=== PATIENT | male | born 1980 | race Caucasian/White ===

== ENCOUNTER 2016-12-05 11:22 | Emergency (ER) | payer SELFPAY ==
--- NOTE | 2016-12-05 12:08 | ER Document Report ---
ED Medical Screen (RME) - General Stated Complaint: TOOTH PAIN Time seen by provider: 12:06 Mode of Arrival: Ambulatory Information source: Patient Notes: 36-year-old male with dental decay and part of the tooth broke off the first molar lower left and the pain radiates up into his temporal area. There is no facial swelling. I have greeted and performed a rapid initial assessment of this patient. A comprehensive ED assessment, evaluation of the patient, analysis of test results , and completion of the medical decision making process will be contacted by additional ED providers. TRAVEL OUTSIDE OF THE U[place] IN LAST 30 DAYS: No - Related Data Allergies/Adverse Reactions: No Known Allergies Allergy (Unverified 03/22/11 16:35) Past Medical History - Immunizations Immunizations up to date: No Hx Diphtheria, Pertussis, Tetanus Vaccination: No Physical Exam - Vital signs Vitals: Temp Pulse Resp BP Pulse Ox 98.5 F 78 16 150/90 H 96 12/05/16 11:31 12/05/16 11:31 12/05/16 11:31 12/05/16 11:31 12/05/16 11:31 Course - Vital Signs Vital signs: Temp Pulse Resp BP Pulse Ox 98.5 F 78 16 150/90 H 96 12/05/16 11:31 12/05/16 11:31 12/05/16 11:31 12/05/16 11:31 12/05/16 11:31
[2016-12-05] MEDS ORDERED: HYDROCODONE/ACETAMINOPHEN 5-325 MG TABLET PO ONE (13:59)
--- NOTE | 2016-12-05 14:04 | ER Document Report ---
HPI - HPI Patient complains to provider of: tooth pain Onset: Last week Onset/Duration: Gradual Quality of pain: Sharp, Throbbing Severity: Moderate Pain Level: 4 Associated Symptoms: Other - Dental pain with decay, part of tooth broken off Exacerbated by: Food Relieved by: Denies Similar symptoms previously: Yes Recently seen / treated by doctor: No - ROS ROS below otherwise negative: Yes - CONSTITUTIONAL Constitutional: DENIES: Fever, Chills - EENT EENT: DENIES: Sore Throat, Ear Pain, Nasal Drainage-Clear, Nasal Drainage- Purulent, Congestion, Eye problems Notes: Dental pain lower left molar decayed area with broken off area to the tooth - NEURO Neurology: DENIES: Headache, Weakness, Vision blurred, Dizzinesss / Vertigo - CARDIOVASCULAR Cardiovascular: DENIES: Chest pain - RESPIRATORY Respiratory: DENIES: Trouble Breathing, Coughing - GASTROINTESTINAL Gastrointestinal: DENIES: Abdominal Pain, Nausea, Patient vomiting, Diarrhea, Constipation, Black / Bloody Stools - URINARY Urinary: DENIES: Dysuria, Urgency, Frequency - REPRODUCTIVE Reproductive: DENIES: :, Postmenopausal, Abnormal bleeding / discharge - MUSCULOSKELETAL Musculoskeletal: DENIES: Extremity pain, Back Pain, Neck Pain, Swelling - DERM Skin Color: Normal Skin Problems: None Past Medical History - General Information source: Patient - Social History Smoking Status: Current Every Day Smoker Cigarette use (# per day): Yes - half pack a day Chew tobacco use (# tins/day): Yes Smoking Education Provided: Yes - less than 2 minutes Frequency of alcohol use: None Drug Abuse: None Lives with: Family Family History: Arthritis, CAD, COPD, CVA, Hyperlipidemia, Malignancy Patient has suicidal ideation: No Patient has homicidal ideation: No - Past Medical History Cardiac Medical History: Reports: None Pulmonary Medical History: Reports: None EENT Medical History: Reports: None Neurological Medical History: Reports: None Endocrine Medical History: Reports: None Renal/ Medical History: Reports: None Malignancy Medical History: Reports Hx Skin Cancer GI Medical History: Reports: None Musculoskeltal Medical History: Reports Hx Musculoskeletal Trauma - AC separation Skin Medical History: Reports None Psychiatric Medical History: Reports: None Traumatic Medical History: Reports: None Infectious Medical History: Reports: None Past Surgical History: Reports: Other - Removal of skin cancer - Immunizations Immunizations up to date: No Hx Diphtheria, Pertussis, Tetanus Vaccination: No Vertical Provider Document - CONSTITUTIONAL Agree With Documented VS: Yes Exam Limitations: No Limitations - INFECTION CONTROL TRAVEL OUTSIDE OF THE [place]S. IN LAST 30 DAYS: No - HEENT HEENT: Atraumatic Mouth Diagram: 1 - Large dental cavity with port of tooth broken off. Pain radiates up to face and ear. Redness around the tooth no abscess noted - NECK Neck: Normal Inspection, Supple, Thyroid Normal - RESPIRATORY Respiratory: Breath Sounds Normal, No Respiratory Distress O2 Sat by Pulse Oximetry: 96 - CARDIOVASCULAR Cardiovascular: Regular Rate, Regular Rhythm, No Murmur - MUSCULOSKELETAL/EXTREMETIES Musculoskeletal/Extremeties: MAEW, FROM, Non-Tender - NEURO Level of Consciousness: Awake, Alert, Appropriate - DERM Integumentary: Warm, Dry, No Rash Course - Vital Signs Vital signs: Temp Pulse Resp BP Pulse Ox 98.5 F 78 16 150/90 H 96 12/05/16 11:31 12/05/16 11:31 12/05/16 11:31 12/05/16 11:31 12/05/16 11:31 Discharge - Discharge Clinical Impression: Pain due to dental caries Condition: Stable Disposition: HOME, SELF-CARE Additional Instructions: TOOTHACHE: Your pain is due to dental decay. The tooth must be repaired in order for you to feel better. You will, therefore, be referred to a dentist. We do not have dentists on the staff at [facility]. Severe swelling or drainage around a tooth usually means a dental abscess. This also requires evaluation and treatment by the dentist, but antibiotics may be prescribed while awaiting dental treatment. You should be rechecked immediately if you develop major swelling of the face, increasing pain, a lump in the jaw or gums, headache, difficulty swallowing, or fever. ORAL NARCOTIC MEDICATION: You have been given a prescription for pain control. This medication is a narcotic. It's best taken with food, as nausea can result if taken on an empty stomach. Don't operate machinery or drive within six hours of taking this medication. Do not combine this medicine with alcohol, or with any medication which can cause sedation (such as cold tablets or sleeping pills) unless you get permission from the physician. Narcotics tend to cause constipation. If possible, drink plenty of fluids and eat a diet high in fiber and fruits. Please be aware that prescription narcotics also have the potential for abuse. People become addicted to these medications because of the general sense of wellbeing that they induce. This feeling along with a significant reduction in tension, anxiety, and aggression provides a stimulating seductive quality to these drugs. Once your pain is under control, we encourage you to discard your unused narcotics. PENICILLIN V K: You have been given a prescription for Penicillin VK. Your physician has determined that this is the best antibiotic for your condition. Pen VK can be taken with meals, however more of the antibiotic gets into the bloodstream if it's taken on an empty stomach. Penicillin usually has no side effects. However, allergy to penicillins is common. If you have had an allergic reaction to any drug of the penicillin family, you should never take any other penicillin. Notify your doctor at once if you develop hives, itching, swelling, faintness, or shortness of breath. FOLLOW-UP CARE: You have been referred for follow-up care to the dentists listed below. Call the dentists office for an appointment as you were instructed or within the next two days. If you experience worsening or a significant change in your symptoms, notify the physician immediately or return to the Emergency Department at any time for re-evaluation. [facility] [address] [place], [place] Monday mornings, by appointment [facility] [address] [place] [address] [facility] [address] [facility] [address] [facility] ([facility]) [facility] [employer] [facility] [address] [facility]. [email or web address] [facility] [address] [place] [address] Monday- 8:00am to 5:00 pm Will see patients from other [facility]. Charges based on income and family size and accepts Medicare, Medicaid, and Insurances Will pull molars [facility] Student Clinics [facility], [facility]. [address] Hours of Operation 8:00 am - 4:30 pm weekdays The following dental offices accept Medicaid: [facility] [address]. Sol Dr. Matt Dr. Rocha Dr. Jain Sky Jin Lutsavage, and Kaitlin oral surgery Dr. Ho ([place]) Dr. Chow ([place]) [facility] Drs. Gonzalez and Srini ([place]) Dr. Lutz ([place]) [facility] Dr. Hancock ([place]) Drs. Manning and ([place]) Medicaid Care Line Prescriptions: Hydrocodone/Acetaminophen [[place] 5-325 mg Tablet] 1 tab PO Q6HP PRN #14 tablet PRN Reason: Penicillin V Potassium [Penicillin Vk 500 mg Tablet] 500 mg PO QID #28 tablet Forms: Elevated Blood Pressure, Smoking Cessation Education
[2016-12-05 14:13] VITALS: BP 140/65
== END 2016-12-05 14:13 | disposition home or self-care (01) ==
LOC: ER 11:22
DX: K02.9 Dental caries, unspecified (principal); K08.89 Other specified disorders of teeth and supporting structures; F17.210 Nicotine dependence, cigarettes, uncomplicated; Z71.6 Tobacco abuse counseling; Z85.828 Personal history of other malignant neoplasm of skin
CPT/HCPCS: 99282

== ENCOUNTER 2016-12-31 07:41 | Emergency (ER) | payer SELFPAY ==
--- NOTE | 2016-12-31 08:58 | ER Document Report ---
ED Oral Problem - General Chief Complaint: Toothache Stated Complaint: TOOTH PAIN Time seen by provider: 08:54 Mode of Arrival: Ambulatory Notes: 36-year-old male was presented to ED for dental pain. He was stating 2 weeks ago for the same dental pain was unable to follow-up with a dentist. He states he has an appointment next Monday for an extraction but states that the pain was too much to wait for that long. States he lost his anabolic prescription that he had written 2 weeks ago. TRAVEL OUTSIDE OF THE [place] IN LAST 30 DAYS: No - HPI Patient complains to provider of: Toothache Onset: Other - Chronic Onset: Gradual Quality of pain: Sharp, Throbbing Severity: Severe Pain Level: 5 Associated symptoms: Toothache Worsened by: Cold Relieved by: Nothing Similar symptoms previously: Yes Recently seen / treated by doctor/dentist: Yes - Related Data Allergies/Adverse Reactions: tramadol Allergy (Verified 12/31/16 07:49) Past Medical History - General Information source: Patient - Social History Smoking Status: Current Every Day Smoker Cigarette use (# per day): Yes Chew tobacco use (# tins/day): No Smoking Education Provided: Yes - less than 2 minutes Frequency of alcohol use: None Drug Abuse: None Family History: Arthritis, CAD, COPD, CVA, Hyperlipidemia, Malignancy Patient has suicidal ideation: No Patient has homicidal ideation: No - Past Medical History Cardiac Medical History: Reports: None Pulmonary Medical History: Reports: None EENT Medical History: Reports: None Neurological Medical History: Reports: None Endocrine Medical History: Reports: None Renal/ Medical History: Reports: None Malignancy Medical History: Reports Hx Skin Cancer GI Medical History: Reports: None Musculoskeltal Medical History: Reports Hx Musculoskeletal Trauma - AC separation Skin Medical History: Reports None Psychiatric Medical History: Reports: None Traumatic Medical History: Reports: None Infectious Medical History: Reports: None Past Surgical History: Reports: Other - Removal of skin cancer - Immunizations Immunizations up to date: No Hx Diphtheria, Pertussis, Tetanus Vaccination: No Review of Systems - Review of Systems Constitutional: No symptoms reported EENT: Dental problem - #20 part of the tooth is missing large cavity present mild swelling around the tooth Cardiovascular: No symptoms reported Respiratory: No symptoms reported Gastrointestinal: No symptoms reported Genitourinary: No symptoms reported Male Genitourinary: No symptoms reported Musculoskeletal: No symptoms reported Skin: No symptoms reported Hematologic/Lymphatic: No symptoms reported Neurological/Psychological: No symptoms reported -: Yes All other systems reviewed and negative Physical Exam - Vital signs Vitals: Temp Pulse Resp BP Pulse Ox 98.0 F 83 16 125/85 97 12/31/16 07:46 12/31/16 07:46 12/31/16 07:46 12/31/16 07:46 12/31/16 07:46 Interpretation: Normal - General General appearance: Appears well, Alert - HEENT Head: Normocephalic, Atraumatic Eyes: Normal Pupils: PERRL Ears: Normal External canal: Normal Tympanic membrane: Normal Sinus: Normal Nasal: Normal Mouth/Lips: Caries Teeth diagram: 1 - Large cavity with part of the tooth broken off. Mild redness around the tooth but no abscess noted. This tooth has been a problem for a long time and patient has not had it fixed yet. Pharynx: Normal Neck: Normal - Respiratory Respiratory status: No respiratory distress Chest status: Nontender Breath sounds: Normal Chest palpation: Normal - Cardiovascular Rhythm: Regular Heart sounds: Normal auscultation Murmur: No - Abdominal Inspection: Normal Distension: No distension Bowel sounds: Normal Tenderness: Nontender Organomegaly: No organomegaly - Back Back: Normal, Nontender - Extremities General upper extremity: Normal inspection, Nontender, Normal color, Normal ROM , Normal temperature General lower extremity: Normal inspection, Nontender, Normal color, Normal ROM , Normal temperature, Normal weight bearing. No: Alina's sign - Neurological Neuro grossly intact: Yes Cognition: Normal Orientation: AAOx4 [place] Coma Scale Eye Opening: Spontaneous [place] Coma Scale Verbal: Oriented [place] Coma Scale Motor: Obeys Commands Betty Coma Scale Total: 15 Speech: Normal Motor strength normal: LUE, RUE, LLE, RLE Sensory: Normal - Psychological Associated symptoms: Normal affect, Normal mood - Skin Skin Temperature: Warm Skin Moisture: Dry Skin Color: Normal Course - Vital Signs Vital signs: Temp Pulse Resp BP Pulse Ox 98.4 F 70 16 124/82 97 12/31/16 09:04 12/31/16 09:04 12/31/16 09:04 12/31/16 09:04 12/31/16 09:04 Discharge - Discharge Clinical Impression: Pain due to dental caries Condition: Stable Disposition: HOME, SELF-CARE Instructions: Dentist Additional Instructions: TOOTHACHE: Your pain is due to dental decay. The tooth must be repaired in order for you to feel better. You will, therefore, be referred to a dentist. We do not have dentists on the staff at [facility]. Severe swelling or drainage around a tooth usually means a dental abscess. This also requires evaluation and treatment by the dentist, but antibiotics may be prescribed while awaiting dental treatment. You should be rechecked immediately if you develop major swelling of the face, increasing pain, a lump in the jaw or gums, headache, difficulty swallowing, or fever. ORAL NARCOTIC MEDICATION: You have been given a prescription for pain control. This medication is a narcotic. It's best taken with food, as nausea can result if taken on an empty stomach. Don't operate machinery or drive within six hours of taking this medication. Do not combine this medicine with alcohol, or with any medication which can cause sedation (such as cold tablets or sleeping pills) unless you get permission from the physician. Narcotics tend to cause constipation. If possible, drink plenty of fluids and eat a diet high in fiber and fruits. Please be aware that prescription narcotics also have the potential for abuse. People become addicted to these medications because of the general sense of wellbeing that they induce. This feeling along with a significant reduction in tension, anxiety, and aggression provides a stimulating seductive quality to these drugs. Once your pain is under control, we encourage you to discard your unused narcotics. PENICILLIN V K: You have been given a prescription for Penicillin VK. Your physician has determined that this is the best antibiotic for your condition. Pen VK can be taken with meals, however more of the antibiotic gets into the bloodstream if it's taken on an empty stomach. Penicillin usually has no side effects. However, allergy to penicillins is common. If you have had an allergic reaction to any drug of the penicillin family, you should never take any other penicillin. Notify your doctor at once if you develop hives, itching, swelling, faintness, or shortness of breath. FOLLOW-UP CARE: You have been referred for follow-up care to the dentists listed below. Call the dentists office for an appointment as you were instructed or within the next two days. If you experience worsening or a significant change in your symptoms, notify the physician immediately or return to the Emergency Department at any time for re-evaluation. [facility] [address] [place] [address] [facility] [address] [facility] [address] [facility] [address] [facility] [email or web address] [address] [place] [address] Monday- 8:00am to 5:00 pm Will see patients from other [facility]. Charges based on income and family size and accepts Medicare, Medicaid, and Insurances Will pull molars [facility] [facility] Student Clinics [facility] [address] Hours of Operation 8:00 am - 4:30 pm weekdays The following dental offices accept Medicaid: [facility] [address] Matt Dr. Rocha Dr. Jain Sky Jin Lutsavage, and Kaitlin oral surgery Dr. Ho ([place]) Dr. Chow ([place]) [facility] Drs. Gonzalez and Srini ([place]) Dr. Lutz ([place]) [facility] Dr. Hancock ([place]) Drs. Manning and ([place]) Medicaid Care Line Prescriptions: Hydrocodone/Acetaminophen [[place] 5-325 mg Tablet] 1 tab PO Q6HP PRN #14 tablet PRN Reason: Penicillin V Potassium [Penicillin Vk 500 mg Tablet] 500 mg PO BID #20 tablet
[2016-12-31 09:10] VITALS: BP 124/82
== END 2016-12-31 09:05 | disposition home or self-care (01) ==
LOC: ER 07:41
DX: K02.9 Dental caries, unspecified (principal); K08.89 Other specified disorders of teeth and supporting structures; F17.210 Nicotine dependence, cigarettes, uncomplicated
CPT/HCPCS: 99282

== ENCOUNTER 2017-04-29 08:26 | Emergency (ER) | payer SELFPAY ==
[2017-04-29] MEDS ORDERED: OXYCODONE-ACETAMINOPHEN 5-325 MG TABLET PO ONE (09:18)
[2017-04-29] MEDS ORDERED: LIDOCAINE 5% (700 MG) TRANSDERMAL ADH..PATCH TP ONE (09:18)
--- NOTE | 2017-04-29 09:23 | ER Document Report ---
HPI - HPI Patient complains to provider of: back pain Onset: Other - 22 years Onset/Duration: Persistent, Worse Quality of pain: Sharp Pain Level: 4 Context: Patient presents complaining of a flareup of his chronic low back pain. Patient states that he had fallen 22 years ago injuring his back and since then he has daily back pain. Patient states that he has had pain that radiates into his right lower extremity. Patient states he has had sciatica in the past and is typical pattern. Patient reports that he has not had a bowel movement today but had a normal bowel movement yesterday. Patient denies any urinary retention or incontinence or fecal incontinence. Patient complains of right knee pain but attributes this to his change in gait due to his back pain. Patient denies any fever or recent illness. Patient denies any IV drug use. Associated Symptoms: Other - low back pain Exacerbated by: Movement, Walking Relieved by: Denies Similar symptoms previously: Yes Recently seen / treated by doctor: No - ROS ROS below otherwise negative: Yes Systems Reviewed and Negative: Yes All other systems reviewed and negative - CONSTITUTIONAL Constitutional: DENIES: Fever, Chills - NEURO Neurology: DENIES: Weakness - REPRODUCTIVE Reproductive: DENIES: : - MUSCULOSKELETAL Musculoskeletal: REPORTS: Extremity pain - back radiates, Back Pain - DERM Skin Color: Normal Skin Problems: None Past Medical History - General Information source: Patient - Social History Smoking Status: Current Every Day Smoker Drug Abuse: None Occupation: none Family History: Arthritis, CAD, COPD, CVA, Hyperlipidemia, Malignancy Patient has suicidal ideation: No Patient has homicidal ideation: No Renal/ Medical History: Denies: Hx Peritoneal Dialysis Malignancy Medical History: Reports Hx Skin Cancer Musculoskeltal Medical History: Reports Hx Musculoskeletal Trauma - AC separation, Reports Other - chronic back pain Past Surgical History: Reports: Other - Removal of skin cancer - Immunizations Immunizations up to date: No Hx Diphtheria, Pertussis, Tetanus Vaccination: No Vertical Provider Document - CONSTITUTIONAL Agree With Documented VS: Yes Exam Limitations: No Limitations General Appearance: WD/WN, No Apparent Distress Notes: PHYSICAL EXAMINATION: GENERAL: Well-appearing, well-nourished and in no acute distress. HEAD: Atraumatic, normocephalic. EYES: sclera clear, anicteric, conjunctiva are normal. ENT: nares patent, Moist mucous membranes. NECK: Normal range of motion, supple no lymphadenopathy LUNGS: respirations unlabored HEART: Regular rate and rhythm without murmurs EXTREMITIES: Normal range of motion, no pitting or edema. No cyanosis. Gait normal, pt ambulates without difficulty BACK: Right lower lumbar paraspinal tenderness, right SI joint tenderness, no midline tenderness, no deformities or step-offs. No CVA tenderness. NEUROLOGICAL: Cranial nerves grossly intact. Normal speech, normal gait. No saddle anesthesia. no foot drop, 2+ Achilles and patellar reflexes bilaterally PSYCH: Normal mood, normal affect. SKIN: Warm, Dry, normal turgor, no rashes or lesions noted. - INFECTION CONTROL TRAVEL OUTSIDE OF THE [place] IN LAST 30 DAYS: No - RESPIRATORY O2 Sat by Pulse Oximetry: 97 Course - Re-evaluation Re-evalutation: 04/29/17 09:19 The patient has been informed that they may have pre-hypertension or hypertension based on a blood pressure reading in the emergency department. I recommend that patient call the primary care provider listed on their discharge instructions or a physician of their choice by this week to arrange follow-up for further evaluation of possible pre-hypertension her hypertension. The patient presents with low back pain without signs of spinal cord compression , cauda equina syndrome, infection, aneurysm, or other serious etiology. The patient is neurologically intact. Given the extremely risk of these diagnoses further testing and evaluation for these possibilities does not appear to be indicated at this time. Patient has been instructed to return if the symptoms worsen or change in any way. - Vital Signs Vital signs: Temp Pulse Resp BP Pulse Ox 98.1 F 85 18 154/91 H 97 04/29/17 08:29 04/29/17 08:29 04/29/17 08:29 04/29/17 08:29 04/29/17 08:29 Discharge - Discharge Clinical Impression: Elevated blood pressure reading Low back pain Qualifiers: Chronicity: chronic Back pain laterality: right Sciatica presence: with sciatica Sciatica laterality: sciatica of right side Qualified Code(s): M54.41 - Lumbago with sciatica, right side Condition: Stable Disposition: HOME, SELF-CARE Additional Instructions: Return immediately for any new or worsening symptoms Followup with your primary care provider, call tomorrow to make a followup appointment LOW BACK PAIN: Three out of every four people will have an episode of disabling back pain during their lifetime. Most commonly the pain is due to straining of the muscles and ligaments in the low back. Usual treatment includes: (1) Rest on a firm surface. Avoid lying on your stomach. (2) Ice pack the painful area. After a few days, gentle heat may be used intermittently to relax the area, or ice packs can be continued. (3) Medication may be needed -- muscle relaxers and antiinflammatory medicines are commonly used. (4) As the back improves, exercises are prescribed to strengthen the back and abdominal muscles. Your doctor will advise you on the proper care for your back at each stage in your recovery. You may be better in a few days -- or healing may take several weeks. If new symptoms of a "herniated disc" (radiation of pain, numbness, or tingling down the back of the leg or weakness in the leg) occur, you should be re-examined. Further testing may be necessary. ORAL NARCOTIC MEDICATION: You have been given a prescription for pain control. This medication is a narcotic. It's best taken with food, as nausea can result if taken on an empty stomach. Don't operate machinery or drive within six hours of taking this medication. Do not combine this medicine with alcohol, or with any medication which can cause sedation (such as cold tablets or sleeping pills) unless you get permission from the physician. Narcotics tend to cause constipation. If possible, drink plenty of fluids and eat a diet high in fiber and fruits. Please be aware that prescription narcotics also have the potential for abuse. People become addicted to these medications because of the general sense of wellbeing that they induce. This feeling along with a significant reduction in tension, anxiety, and aggression provides a stimulating seductive quality to these drugs. Once your pain is under control, we encourage you to discard your unused narcotics. MUSCLE RELAXERS: Muscle relaxing medications are usually prescribed for acute muscle spasm or injury to the neck and back. They are often combined with antiinflammatory pain medication for increased relief. You may stop the muscle relaxer when the pain and stiffness have improved. Start the medication again if spasms recur. Muscle relaxers may cause drowsiness, especially with the first dose. Do not operate machinery or drive while under the effects of the medication. Most muscle relaxers last up to 24 hours. Do not combine the medication with alcohol. ICE PACKS: Apply ice packs frequently against the painful area. Many different schedules are recommended, such as "20 minutes on, 20 minutes off" or "one hour ice, two hours rest." If you need to work, you may need to go longer between ice treatments. You should plan to have the area ice packed AT LEAST one fourth of the time. The ice should be applied over the wrap, tape, or splint, or over a layer of cloth -- not directly against the skin. Some ice bags have a built-in cloth and can be put directly on the skin. WARM PACKS: After approximately two days, apply gentle heat (such as a heating pad or hot water bottle) for about 20 to 30 minutes about every two hours -- at least four times daily. Warmth and elevation will help you make a more rapid recovery , and will ease the pain considerably. Do not use HOT heat, and never apply heat for longer than 30 minutes. The continuous heat can invisibly damage skin and muscles -- even when no burn is seen on the surface. Damaged muscles can make you MORE sore. FOLLOW-UP CARE: If you have been referred to a physician for follow-up care, call the physician s office for an appointment as you were instructed or within the next two days. If you experience worsening or a significant change in your symptoms, notify the physician immediately or return to the Emergency Department at any time for re-evaluation. Prescriptions: Cyclobenzaprine HCl [Flexeril 10 Mg Tablet] 10 mg PO TID #15 tablet Naproxen [Naprosyn 250 Nmg Tablet] 1 tab PO BID #14 tablet Oxycodone HCl/Acetaminophen [Percocet 5-325 mg Tablet] 1 - 2 tab PO ASDIR PRN # 15 tablet PRN Reason: Forms: Elevated Blood Pressure Referrals: [facility] [Provider Group] - Follow up as needed [facility] [Provider Group] - Follow up in 3-5 days
[2017-04-29 09:44] VITALS: BP 131/82
== END 2017-04-29 09:37 | disposition home or self-care (01) ==
LOC: ER 08:26
DX: G89.29 Other chronic pain (principal); M54.41 Lumbago with sciatica, right side; W19.XXXS Unspecified fall, sequela; M25.561 Pain in right knee; R03.0 Elevated blood-pressure reading, without diagnosis of hypertension; F17.200 Nicotine dependence, unspecified, uncomplicated; Z85.828 Personal history of other malignant neoplasm of skin
CPT/HCPCS: 99283

== ENCOUNTER 2017-05-01 10:08 | Emergency (ER) | payer SELFPAY ==
--- NOTE | 2017-05-01 11:21 | ER Document Report ---
HPI - HPI Pain Level: 4 Notes: Patient is a 36-year-old male presents to the ED complaining of continued low back pain without any acute changes since his visit 2 days ago. Patient has reported chronic low back pain without known injury. States that he did fill his Percocet but did not fill the muscle relaxer. Patient states he did get methocarbamol from his neighbor said that would help when he takes it with his Percocet. Patient states that he has continued low back pain with radicular symptoms into his right lower extremity. Patient states that sometimes he feels like his leg is vibrating. Pt states that the pain worsens when he moves it rather than pushing on his back. He denies any muscle weakness or paralysis. Denies any loss of control of bowel or bladder patient still does not have a PCM. On occasion he will feel some tingling in his foot. Otherwise he still eating and drinking without any problems. He has been having normal urinary habits and bowel movements. Denies any headache, fever, URI, sore throat, chest pain, palpitations, syncope, cough, wheeze, shortness of breath, abdominal pain, nausea/vomiting/diarrhea, urinary retention, dysuria, hematuria , or rash. Patient states that he does smoke but he does not do any other illicit drugs or alcohol. - ROS Notes: REVIEW OF SYSTEMS: CONSTITUTIONAL : Denies fever, chills, or sweats. Denies recent illness. EENT: Denies eye, ear, throat, or mouth pain or symptoms. Denies nasal or sinus congestion or discharge. Denies throat, tongue, or mouth swelling or difficulty swallowing. CARDIOVASCULAR: Denies chest pain. Denies palpitations or racing or irregular heart beat. Denies ankle edema. RESPIRATORY: Denies cough, cold, or chest congestion. Denies shortness of breath, difficulty breathing, or wheezing. GASTROINTESTINAL: Denies abdominal pain or distention. Denies nausea, vomiting , or diarrhea. Denies blood in vomitus, stools, or per rectum. Denies black, tarry stools. Denies constipation. GENITOURINARY: Denies difficulty urinating, painful urination, burning, frequency, blood in urine, or discharge. MUSCULOSKELETAL: see hpi SKIN: Denies rash, lesions or sores. HEMATOLOGIC : Denies easy bruising or bleeding. LYMPHATIC: Denies swollen, enlarged glands. NEUROLOGICAL: see hpi ALL OTHER SYSTEMS REVIEWED AND NEGATIVE. Dictation was performed using [employer] voice recognition software - CARDIOVASCULAR Cardiovascular: DENIES: Chest pain - REPRODUCTIVE Reproductive: DENIES: : Past Medical History - Social History Smoking Status: Current Every Day Smoker Chew tobacco use (# tins/day): No Smoking Education Provided: Yes - <2mins Frequency of alcohol use: None Drug Abuse: None Family History: Arthritis, CAD, COPD, CVA, Hyperlipidemia, Malignancy Patient has suicidal ideation: No Patient has homicidal ideation: No Renal/ Medical History: Denies: Hx Peritoneal Dialysis Malignancy Medical History: Reports Hx Skin Cancer Musculoskeltal Medical History: Reports Hx Musculoskeletal Trauma - AC separation Past Surgical History: Reports: Other - Removal of skin cancer - Immunizations Immunizations up to date: No Hx Diphtheria, Pertussis, Tetanus Vaccination: No Vertical Provider Document - CONSTITUTIONAL Agree With Documented VS: Yes Notes: PHYSICAL EXAMINATION: GENERAL: Well-appearing, well-nourished and in no acute distress. NECK: Normal range of motion, supple without lymphadenopathy. No rigidity. LUNGS: Breath sounds clear to auscultation bilaterally and equal. No wheezes rales or rhonchi. HEART: Regular rate and rhythm without murmurs, rubs, gallops. ABDOMEN: Soft, nontender, nondistended abdomen. No guarding, no rebound. No masses appreciated. Normal bowel sounds present. No CVA tenderness bilaterally. No pulsatile mass. Musculoskeletal: LE's b/l: FROM to passive/active. Strength 5+/5. Back: FROM to passive/active. Strength 5+/5. No deformity, abrasion, laceration, or ecchymosis noted. + mild muscle tightness L-paraspinal. SLR negative b/l. No SI jt tenderness b/l. No vertebral point tenderness. Extremities: No cyanosis, clubbing, or edema b/l. Peripheral pulses 2+. Capillary refill less than 3 seconds. NEUROLOGICAL: Normal sensory, motor exams. reflexes 2+. PSYCH: Normal mood, normal affect. SKIN: Warm, Dry, normal turgor, no rashes or lesions noted. - INFECTION CONTROL TRAVEL OUTSIDE OF THE [place] IN LAST 30 DAYS: No - RESPIRATORY O2 Sat by Pulse Oximetry: 97 Course - Re-evaluation Re-evalutation: 05/01/17 12:41 Patient is an afebrile, well-hydrated, 36-year-old male presents the ED with chronic low back pain. Vitals are stable. PE is otherwise unremarkable. Patient was seen 2 days ago for the same symptoms. Patient states that he filled the Percocet did not did not fill the other medications. Patient also states that he borrowed medication from a neighbor, methocarbamol and has been taking double the recommended dose of that along with his Percocet. Patient requested the pain injection today, but not Toradol as I did not work for him last summer. I did call the pharmacy and and patient did fill only the Percocet. Low suspicion for any expanding or ruptured AAA, cauda equina syndrome, epidural mass lesion, sepsis, herniated disc causing severe spinal stenosis, or other systemic illness at this time. Lumbar spine x-ray with flexion-extension views obtained to assess for instability in the low spine. L5 -S1 disc degeneration noted. No instability. 10 mg Decadron injection given IM today. I will send him home with voltaren gel. Conservative measures for symptoms. Recheck with your PCM in 2-3 days. Call orthopedics for an appointment. Return to ED with any worsening/ concerning symptoms as reviewed in discharge. Patient is in agreement. - Vital Signs Vital signs: Temp Pulse Resp BP Pulse Ox 97.3 F 89 18 132/87 H 97 05/01/17 10:14 05/01/17 10:14 05/01/17 10:14 05/01/17 10:14 05/01/17 10:14 Discharge - Discharge Clinical Impression: Low back pain Qualifiers: Chronicity: chronic Back pain laterality: right Sciatica presence: unspecified whether sciatica present Qualified Code(s): M54.5 - Low back pain Condition: Stable Disposition: HOME, SELF-CARE Instructions: Ice Packs ([facility]), Low Back Pain ([facility]), Muscle Strain ([facility]), Warm Packs ([facility]) Additional Instructions: Rest, Ice, Compression, Elevation Take meds as directed Tylenol/ibuprofen as needed Light stretches daily Strength exercises as able Moist heat and massage may help F/u with your PCP in 2-3 days for a recheck call for consult(s) with Orthopedics Consider physical therapy, chiropractics as well Return to the ED with any worsening symptoms and/or development of fever, headache, chest pain, palpitations, syncope, shortness of breath, trouble breathing, abdominal pain, n/v/d, blood in stool/urine, loss of control of bowel /bladder, urinary retention, muscle weakness/paralysis, numbness/tingling, or other worsening symptoms that are concerning to you. Prescriptions: Diclofenac Sodium [Voltaren] 4 gm TP QID PRN #100 gel..gm. PRN Reason: Forms: Elevated Blood Pressure, Smoking Cessation Education Referrals: [facility] [Provider Group] - Follow up as needed [facility] [place] [Provider Group] - Follow up as needed [facility] [Provider Group] - Follow up in 3-5 days
[2017-05-01] MEDS ORDERED: DEXAMETHASONE SOD PHOS INJ 10 MG/1 ML VIAL IM ONE (11:23)
--- NOTE | 2017-05-01 11:54 | RADIOLOGY REPORT (SQ) ---
EXAM DESCRIPTION: L SPINE W/FLEX/EXT COMPLETED DATE/TIME: 05/01/2017 11:42 am REASON FOR STUDY: low back pain, ?instability COMPARISON: None. NUMBER OF VIEWS: Seven views. TECHNIQUE: AP, lateral, obliques, flexion, extension, and sacral radiographic images acquired. LIMITATIONS: None. FINDINGS: MINERALIZATION: Normal. SEGMENTATION: Normal. No transitional anatomy. ALIGNMENT: Normal. FLEXION/EXTENSION: No instability. VERTEBRAE: Maintained height. No fracture or worrisome bone lesion. DISCS: Disc space narrowing with reactive changes at the L5-S1 disc. POSTERIOR ELEMENTS: Pedicles and facets are intact. No pars defect or posterior arch defects. HARDWARE: None in the spine. PARASPINAL SOFT TISSUES: Normal. PELVIS: Intact as visualized. No fractures or worrisome bone lesions. SI joints intact. OTHER: No other significant finding. IMPRESSION: Degenerative disc disease L5-S1. NO INSTABILITY ON FLEXION/EXTENSION. TECHNICAL DOCUMENTATION: JOB ID: [id number] [employer]- All Rights Reserved
[2017-05-01 12:52] VITALS: BP 164/74
== END 2017-05-01 12:52 | disposition home or self-care (01) ==
LOC: ER 10:08
DX: M54.5 Low back pain (principal); G89.29 Other chronic pain; F17.200 Nicotine dependence, unspecified, uncomplicated
CPT/HCPCS: 99283; 96372; 72114; J1100

== ENCOUNTER 2017-05-29 05:09 | Emergency (ER) | payer SELFPAY ==
[2017-05-29 05:16] VITALS: BP 140/93
[2017-05-29] MEDS ORDERED: DEXAMETHASONE SOD PHOS INJ 10 MG/1 ML VIAL IM ONE (06:54)
[2017-05-29] MEDS ORDERED: OXYCODONE-ACETAMINOPHEN 5-325 MG TABLET PO ONE (06:55)
--- NOTE | 2017-05-29 07:00 | ER Document Report ---
ED General - General Chief Complaint: Low Back Pain Stated Complaint: LOWER BACK PAIN Time Seen by Provider: 05/29/17 06:54 TRAVEL OUTSIDE OF THE [place] IN LAST 30 DAYS: No - HPI Patient complains to provider of: Acute exacerbation of chronic low back pain Notes: Patient coming in complaining of acute exacerbation of lower back pain no history of any new trauma. Patient denies any numbness or tingling denies any bowel bladder incontinence. Denies any saddle anesthesias. Patient states now is having sciatica bilaterally most time he has sciatica on the on the right side. Patient does have an appointment to have an MRI performed by a legal service specialist that he is seen in [place]. Patient states tried multiple over- the-counter modalities along with muscle relaxer that he has been prescribed with no relief. Upon my evaluation patient is resting comfortably no signs of any obvious distress. No fevers or chills no nausea no vomiting denies smoking denies IV drug use. - Related Data Allergies/Adverse Reactions: tramadol Allergy (Verified 05/29/17 05:16) Past Medical History - Social History Smoking Status: Unknown if Ever Smoked Family History: Arthritis, CAD, COPD, CVA, Hyperlipidemia, Malignancy Patient has suicidal ideation: No Patient has homicidal ideation: No Renal/ Medical History: Denies: Hx Peritoneal Dialysis Malignancy Medical History: Reports Hx Skin Cancer Musculoskeltal Medical History: Reports Hx Musculoskeletal Trauma - AC separation Past Surgical History: Reports: Other - Removal of skin cancer - Immunizations Immunizations up to date: No Hx Diphtheria, Pertussis, Tetanus Vaccination: No Review of Systems - Review of Systems Constitutional: No symptoms reported EENT: No symptoms reported Cardiovascular: No symptoms reported Respiratory: No symptoms reported Gastrointestinal: No symptoms reported Genitourinary: No symptoms reported Male Genitourinary: No symptoms reported Musculoskeletal: Back pain Skin: No symptoms reported Hematologic/Lymphatic: No symptoms reported Neurological/Psychological: No symptoms reported -: Yes All other systems reviewed and negative Physical Exam - Vital signs Vitals: Temp Pulse Resp BP Pulse Ox 97.8 F 98 26 H 140/93 H 98 05/29/17 05:10 05/29/17 05:10 05/29/17 05:10 05/29/17 05:10 05/29/17 05:10 Interpretation: Normal - General General appearance: Appears well, Alert - HEENT Head: Normocephalic, Atraumatic Eyes: Normal Pupils: PERRL - Respiratory Respiratory status: No respiratory distress Chest status: Nontender Breath sounds: Normal Chest palpation: Normal - Cardiovascular Rhythm: Regular Heart sounds: Normal auscultation Murmur: No - Abdominal Inspection: Normal Distension: No distension Bowel sounds: Normal Tenderness: Nontender Organomegaly: No organomegaly - Back Back: Normal, Nontender - Extremities General upper extremity: Normal inspection, Nontender, Normal color, Normal ROM , Normal temperature General lower extremity: Normal inspection, Nontender, Normal color, Normal ROM , Normal temperature, Normal weight bearing. No: Alina's sign - Neurological Neuro grossly intact: Yes Cognition: Normal Orientation: AAOx4 Betty Coma Scale Eye Opening: Spontaneous Betty Coma Scale Verbal: Oriented Betty Coma Scale Motor: Obeys Commands [place] Coma Scale Total: 15 Speech: Normal Motor strength normal: LUE, RUE, LLE, RLE Sensory: Normal - Psychological Associated symptoms: Normal affect, Normal mood - Skin Skin Temperature: Warm Skin Moisture: Dry Skin Color: Normal Course - Re-evaluation Re-evalutation: 05/29/17 11:01 The patient presents with low back pain without signs of spinal cord compression , cauda equina syndrome, infection, aneurysm, or other serious etiology. The patient is neurologically intact. Given the extremely low risk of these diagnoses further testing and evaluation for these possibilities does not appear to be indicated at this time. The patient has been instructed to return if the symptoms worsen or change in any way. Patient was looked up on [place] narcotic database not receiving any recent narcotics - Vital Signs Vital signs: Temp Pulse Resp BP Pulse Ox 97.8 F 98 26 H 140/93 H 98 05/29/17 05:10 05/29/17 05:10 05/29/17 05:10 05/29/17 05:10 05/29/17 05:10 Discharge - Discharge Clinical Impression: Chronic low back pain with bilateral sciatica Qualifiers: Back pain laterality: unspecified Qualified Code(s): M54.41 - Lumbago with sciatica, right side Condition: Good Disposition: HOME, SELF-CARE Instructions: Ice Packs ([facility]), Low Back Pain ([facility]), Oral Narcotic Medication ( [facility]) Additional Instructions: Follow-up with your primary care physician. Continue to take anti-inflammatory medication. Take prescribed pain medication for severe pain. Prescriptions: Oxycodone HCl/Acetaminophen [Percocet 5-325 mg Tablet] 1 - 2 tab PO Q4H PRN #15 tablet PRN Reason: Prednisone [Deltasone 20 mg Tablet] 3 tab PO DAILY 5 Days Referrals: GLADIS ZENG MD [Primary Care Provider] - Follow up as needed
== END 2017-05-29 07:15 | disposition home or self-care (01) ==
LOC: ER 05:09
DX: M54.41 Lumbago with sciatica, right side (principal); M54.5 Low back pain; G89.29 Other chronic pain
CPT/HCPCS: 99283; 96372; J1100

== ENCOUNTER 2017-07-10 13:38 | Emergency (ER) | payer SELFPAY ==
[2017-07-10 14:06] VITALS: BP 142/93
[2017-07-10] MEDS ORDERED: DEXAMETHASONE SOD PHOS INJ 10 MG/1 ML VIAL IM ONE (14:43)
[2017-07-10] MEDS ORDERED: LIDOCAINE 5% (700 MG) TRANSDERMAL ADH..PATCH TP ONE (14:43)
--- NOTE | 2017-07-10 14:49 | ER Document Report ---
ED Neck/Back Problem - General Chief Complaint: Back Pain Stated Complaint: BACK PAIN Time Seen by Provider: 07/10/17 14:36 Mode of Arrival: Ambulatory Information source: Patient Notes: 37-year-old male presents to ED for complaint of back pain for 4 years patent. He states it got worse while he was in [facility] and on the medical bed. He denies any injuries. He denies any loss of motor control, loss of sensation, loss of control of bowel or bladder, or any saddle anesthesia. Patient states he goes getting [facility] and they are trying to get him scheduled for an MRI. He has no signs and symptoms of cauda equina at this time. He has no pulsatile mass in his abdomen. He has full range of motion to both legs. TRAVEL OUTSIDE OF THE [place] IN LAST 30 DAYS: No - HPI Patient complains to provider of: Pain, Upper back Onset: Other - 4 years Onset: Chronic Timing: Waxing and waning Quality of pain: Sharp, Throbbing Severity: Moderate Pain Level: 4 Recent injury: No Associated symptoms: Like prior neck/back pain, Radiation to leg, Lower back pain. denies: Constipation, Incontinence, Motor loss, Numbness/tingling, Sensory loss, Sweaty, Unable to urinate Exacerbated by: Movement of trunk Relieved by: Nothing Similar symptoms previously: Yes Recently seen / treated by doctor: No - Related Data Allergies/Adverse Reactions: tramadol Allergy (Verified 07/10/17 14:03) Past Medical History - General Information source: Patient - Social History Smoking Status: Current Every Day Smoker Cigarette use (# per day): Yes - Half a pack a day Chew tobacco use (# tins/day): No Smoking Education Provided: Yes - Less than 1 minute Frequency of alcohol use: None Drug Abuse: None Family History: Arthritis, CAD, COPD, CVA, Hyperlipidemia, Malignancy. denies: Hypertension, Thyroid Disfunction Patient has suicidal ideation: No - Past Medical History Cardiac Medical History: Reports: Hx Hypertension Pulmonary Medical History: Reports: None EENT Medical History: Reports: None Neurological Medical History: Reports: None Endocrine Medical History: Reports: None Renal/ Medical History: Reports: None Malignancy Medical History: Reports Hx Skin Cancer GI Medical History: Reports: None Musculoskeltal Medical History: Reports Hx Arthritis, Reports Hx Musculoskeletal Deformity, Reports Hx Musculoskeletal Trauma - AC separation Skin Medical History: Reports None Psychiatric Medical History: Reports: None Traumatic Medical History: Reports: None Infectious Medical History: Reports: None Past Surgical History: Reports: Other - Removal of skin cancer - Immunizations Immunizations up to date: No Hx Diphtheria, Pertussis, Tetanus Vaccination: No Review of Systems - Review of Systems Constitutional: No symptoms reported EENT: No symptoms reported Cardiovascular: No symptoms reported Respiratory: No symptoms reported Gastrointestinal: No symptoms reported. denies: Constipation, Fecal incontinence Genitourinary: No symptoms reported. denies: Incontinence, Retention Male Genitourinary: No symptoms reported Musculoskeletal: Back pain, Muscle pain, Muscle stiffness Skin: No symptoms reported Hematologic/Lymphatic: No symptoms reported Neurological/Psychological: No symptoms reported -: Yes All other systems reviewed and negative Physical Exam - Vital signs Vitals: Temp Pulse Resp BP Pulse Ox 97.9 F 93 18 142/93 H 97 07/10/17 14:06 07/10/17 14:06 07/10/17 14:06 07/10/17 14:06 07/10/17 14:06 Interpretation: Normal - General General appearance: Appears well, Alert - HEENT Head: Normocephalic, Atraumatic Eyes: Normal Pupils: PERRL - Respiratory Respiratory status: No respiratory distress Chest status: Nontender Breath sounds: Normal Chest palpation: Normal - Cardiovascular Rhythm: Regular Heart sounds: Normal auscultation Murmur: No - Abdominal Inspection: Normal Distension: No distension Bowel sounds: Normal Tenderness: Nontender Organomegaly: No organomegaly - Back Back: Normal, Tender, Vertebra tenderness. No: Deformity/step-off, CVA tenderness, Scars, Scoliosis, Wounds - Extremities General upper extremity: Normal inspection, Nontender, Normal color, Normal ROM , Normal temperature General lower extremity: Normal inspection, Nontender, Normal color, Normal ROM , Normal temperature, Normal weight bearing. No: Alina's sign - Neurological Neuro grossly intact: Yes Cognition: Normal Orientation: AAOx4 [place] Coma Scale Eye Opening: Spontaneous [place] Coma Scale Verbal: Oriented [place] Coma Scale Motor: Obeys Commands Betty Coma Scale Total: 15 Speech: Normal Cranial nerves: Normal Cerebellar coordination: Normal Motor strength normal: LUE, RUE, LLE, RLE Additional motor exam normals: Equal mold chipper Babinski reflex: Normal (flexor plantar) Sensory: Normal Knee - Reflex grade: 2 = Normal Ankle - Reflex grade: 2 = Normal - Psychological Associated symptoms: Normal affect, Normal mood - Skin Skin Temperature: Warm Skin Moisture: Dry Skin Color: Normal Course - Re-evaluation Re-evalutation: 07/10/17 14:56 Patient was treated with Decadron and Lidoderm patch. He states he has naproxen at home and does not need a prescription for that. He [facility] and is trying to arrange an MRI through them. He has no signs of cauda equina, no loss of bowel or bladder control, no loss of muscle control , no loss of sensation. - Vital Signs Vital signs: Temp Pulse Resp BP Pulse Ox 97.9 F 93 18 142/93 H 97 07/10/17 14:06 07/10/17 14:06 07/10/17 14:06 07/10/17 14:06 07/10/17 14:06 Discharge - Discharge Clinical Impression: Low back pain Qualifiers: Chronicity: chronic Back pain laterality: bilateral Sciatica presence: with sciatica Sciatica laterality: sciatica of right side Qualified Code(s): M54.41 - Lumbago with sciatica, right side Condition: Stable Disposition: HOME, SELF-CARE Additional Instructions: LOW BACK PAIN: Three out of every four people will have an episode of disabling back pain during their lifetime. Most commonly the pain is due to straining of the muscles and ligaments in the low back. Usual treatment includes: (1) Rest on a firm surface. Avoid lying on your stomach. (2) Ice pack the painful area. After a few days, gentle heat may be used intermittently to relax the area, or ice packs can be continued. (3) Medication may be needed -- muscle relaxers and antiinflammatory medicines are commonly used. (4) As the back improves, exercises are prescribed to strengthen the back and abdominal muscles. Your doctor will advise you on the proper care for your back at each stage in your recovery. You may be better in a few days -- or healing may take several weeks. If new symptoms of a "herniated disc" (radiation of pain, numbness, or tingling down the back of the leg or weakness in the leg) occur, you should be re-examined. Further testing may be necessary. Chronic Back Pain Chronic back pain (pain persisting longer than three months) is a common problem. A medical evaluation can look for herniated disc, arthritis, osteoporosis, tumors, and infections. But at least half the time, there's no obvious treatable cause. Anxiety and depression tend to worsen back pain. Ibuprofen or other anti-inflammatory medicine can help. A heating pad, used for 15-20 minutes at a time, can ease pain. For this type of back pain, narcotic medicines should be avoided. Muscle relaxers are rarely helpful unless you're having spasms. Activity is important. Find an aerobic exercise program that your back can tolerate. Too much rest makes back pain worse. Specific back exercises are usually prescribed to strengthen the back and abdominal muscles. Often, a physical therapist can help. Avoid heavy lifting, working while bent over, or standing with both knees straight. Most back pain patients do better with a firm mattress. If new symptoms of a "herniated disc" (radiation of pain, numbness, or tingling down the back of the leg or weakness in the leg) occur, you should be re-examined. Chronic Pain Control Stress, inactivity, and depression make pain more severe regardless of the cause of the pain. Stress and poor physical condition can cause pain such as headaches and backache. Relaxation: Rest in a quiet place with your eyes closed for 20 minutes twice daily. Concentrate on a pleasant image, or simply "feel" your breathing. Clear your mind. Stress management: Deal with your "stressors." Either take action, or eliminate the stressor from your life. Don't let things hang over you. Accept those things you can't change. Nutrition: Eat small, balanced meals -- don't skip, don't overeat. Meals should be high-carbohydrate, low-sugar, low-fat. Exercise: Exercise helps painful conditions and eases stress. Get 30 minutes of moderate exercise, five days a week. Do an activity that does not flare your pain. Precautions: Pain which continues to disrupt daily activities, or which changes in nature, requires a medical evaluation. Pain Clinic referral is available. We do not manage chronic pain in the Emergency Department. We will try to appropriately help you through an acute flare of your chronic painful condition , but for on-going chronic pain that does not improve, you will need to see your private doctor or painter mirror. We do not provide repeated medication management of chronic painful conditions. If you wish, we can provide the name of local pain management physicians. Anti-Inflammatory Medication You have received a prescription for an antiinflammatory agent. This is an excellent, safe drug for pain control. In addition, it has potent antiinflammatory effects which are beneficial, especially in the treatment of injuries, arthritis, or tendonitis. It's best to take this medicine with food. Persons with ulcer disease or allergy to aspirin should notify their physician of this before taking this drug. Take the medication exactly as prescribed. Don't take additional doses unless instructed to do so by your doctor. If you develop wheezing, shortness of breath, hives, faintness, stomach pain, vomiting, or dark black stools, return for re-evaluation at once. Stretching Exercises for the Back The physician has recommended that you begin stretching exercises for your back. These are often used even while the back is painful. However, you should notify the physician if the activities seem to increase your pain. PELVIC TILT: Lie flat on your back with knees bent. Tighten your stomach and buttock muscles so it flattens your lower back against the floor. Hold 10 seconds. Repeat 10 times, twice daily. KNEE RAISE: Lying on the back with knees bent, raise one knee to your chest, then the other. Hold both knees against the chest 10 seconds, then lower one knee at a time. Repeat 10 times, twice daily. PARTIAL TRUNK RAISE: Lie face down, arms at your sides. Keeping your waist on the floor, use your arms raise your chest up. Support yourself on your elbows for 30 seconds. Repeat twice daily, increasing the time to two minutes as you recover. ICE PACKS: Apply ice packs frequently against the painful area. Many different schedules are recommended, such as "20 minutes on, 20 minutes off" or "one hour ice, two hours rest." If you need to work, you may need to go longer between ice treatments. You should plan to have the area ice packed AT LEAST one fourth of the time. The ice should be applied over the wrap, tape, or splint, or over a layer of cloth -- not directly against the skin. Some ice bags have a built-in cloth and can be put directly on the skin. WARM PACKS: After approximately two days, apply gentle heat (such as a heating pad or hot water bottle) for about 20 to 30 minutes about every two hours -- at least four times daily. Warmth and elevation will help you make a more rapid recovery , and will ease the pain considerably. Do not use HOT heat, and never apply heat for longer than 30 minutes. The continuous heat can invisibly damage skin and muscles -- even when no burn is seen on the surface. Damaged muscles can make you MORE sore. I have given you a Lidoderm patch in the emergency room that she need to remove [address] when you you will need to look for Aspercreme at the [employer] or drugstore and place this on your back as per instructions on the package it is similar to what the patch does. Please follow-up with your care in community clinic for further treatment for your back. FOLLOW-UP CARE: If you have been referred to a physician for follow-up care, call the physician s office for an appointment as you were instructed or within the next two days. If you experience worsening or a significant change in your symptoms, notify the physician immediately or return to the Emergency Department at any time for re-evaluation. Forms: Elevated Blood Pressure, Smoking Cessation Education Referrals: [facility] [Provider Group] - Follow up as needed
== END 2017-07-10 15:15 | disposition home or self-care (01) ==
LOC: ER 13:38
DX: G89.29 Other chronic pain (principal); M54.41 Lumbago with sciatica, right side; I10 Essential (primary) hypertension; F17.210 Nicotine dependence, cigarettes, uncomplicated; Z71.6 Tobacco abuse counseling; Z88.5 Allergy status to narcotic agent; Z85.828 Personal history of other malignant neoplasm of skin
CPT/HCPCS: 99283; 96372; J1100

== ENCOUNTER 2017-09-07 09:48 | Emergency (ER) | payer SELFPAY ==
[2017-09-07] MEDS ORDERED: NAPROXEN 250 MG TABLET PO ONE (10:16)
[2017-09-07] MEDS ORDERED: HYDROCODONE/ACETAMINOPHEN 5-325 MG TABLET PO ONE (10:16)
--- NOTE | 2017-09-07 10:16 | ER Document Report ---
ED Fall - General Chief Complaint: Fall Injury Stated Complaint: BACK PAIN Time Seen by Provider: 09/07/17 10:13 Notes: The patient is a 37-year-old male, past medical history chronic low back pain with sciatica, presents after he was stepping down a ladder and missed a step. He landed on the ball of his right foot and right hip. He is complaining of worsening low back pain and worsening sciatica. Pain is worse with movement. He denies saddle anesthesia, change in bowel or bladder, increased numbness or tingling, rash or fevers. TRAVEL OUTSIDE OF THE [place] IN LAST 30 DAYS: No - Related data Allergies/Adverse Reactions: tramadol Allergy (Verified 09/07/17 09:52) Past Medical History - General Information source: Patient - Social History Smoking Status: Current Every Day Smoker Chew tobacco use (# tins/day): No Frequency of alcohol use: None Drug Abuse: None Family History: Arthritis, CAD, COPD, CVA, Hyperlipidemia, Malignancy. denies: Hypertension, Thyroid Disfunction Patient has suicidal ideation: No Patient has homicidal ideation: No - Past Medical History Cardiac Medical History: Reports: Hx Hypertension Renal/ Medical History: Denies: Hx Peritoneal Dialysis Malignancy Medical History: Reports Hx Skin Cancer Musculoskeltal Medical History: Reports Hx Arthritis, Reports Hx Musculoskeletal Deformity, Reports Hx Musculoskeletal Trauma - AC separation Past Surgical History: Reports: Other - Removal of skin cancer - Immunizations Immunizations up to date: No Hx Diphtheria, Pertussis, Tetanus Vaccination: No Review of Systems - Review of Systems Notes: REVIEW OF SYSTEMS: CONSTITUTIONAL: -fevers, -chills EENT: -eye pain, -difficulty swallowing, -nasal congestion CARDIOVASCULAR:-chest pain, -syncope. RESPIRATORY: -cough, -SOB GASTROINTESTINAL: -abdominal pain, -nausea, -vomiting, -diarrhea GENITOURINARY: -dysuria, -hematuria MUSCULOSKELETAL: +back pain, -neck pain SKIN: -rash or skin lesions. HEMATOLOGIC: -easy bruising or bleeding. LYMPHATIC: -swollen, enlarged glands. NEUROLOGICAL: -altered mental status or loss of consciousness, -headache, - neurologic symptoms PSYCHIATRIC: -anxiety, -depression. ALL OTHER SYSTEMS REVIEWED AND NEGATIVE. Physical Exam - Vital signs Vitals: Temp Pulse Resp BP Pulse Ox 98.4 F 94 16 149/96 H 99 09/07/17 09:50 09/07/17 09:50 09/07/17 09:50 09/07/17 09:50 09/07/17 09:50 - Notes Notes: PHYSICAL EXAMINATION: GENERAL: Well-appearing. Uncomfortable. HEAD: Atraumatic, normocephalic. EYES: Pupils equal round and reactive to light, extraocular movements intact, sclera anicteric, conjunctiva are normal. ENT: nares patent, oropharynx clear without exudates. Moist mucous membranes. NECK: Normal range of motion, supple without lymphadenopathy LUNGS: Breath sounds clear to auscultation bilaterally and equal. No wheezes rales or rhonchi. HEART: Regular rate and rhythm without murmurs ABDOMEN: Soft, nontender, normoactive bowel sounds. No guarding, no rebound. No masses appreciated. EXTREMITIES: Normal range of motion, no pitting or edema. No cyanosis. Tenderness over right lateral hip. Full range of motion of hip. Strong distal pulses. BACK: Non-tender spine. Mild tenderness over right lateral lower back. NEUROLOGICAL: Cranial nerves grossly intact. Normal speech, normal gait. Normal motor exams. PSYCH: Normal mood, normal affect. SKIN: Warm, Dry, normal turgor, no rashes or lesions noted. Course - Re-evaluation Re-evalutation: Patient has no red flag signs for low back pain at this time. He is trying to schedule an MRI as an outpatient at the [facility] for his chronic low back pain. There is no emergent need for an MRI at this time without red flag signs. X-ray does not show any acute fractures. After the fall off one rung of a ladder, instructed him about continuing anti-inflammatories, Robaxin for any spasming, Lidoderm patches for pain control and referral to physical therapy to strengthen his back. Will hold off on any narcotics due to the dangers of narcotics and multiple studies showing no improvement in outcomes with chronic low back pain. - Vital Signs Vital signs: Temp Pulse Resp BP Pulse Ox 98.4 F 94 16 149/96 H 99 09/07/17 09:50 09/07/17 09:50 09/07/17 09:50 09/07/17 09:50 09/07/17 09:50 - Diagnostic Test Radiology reviewed: Image reviewed, Reports reviewed Radiology results interpreted by me: Right hip/pelvis x-ray: NAD Discharge - Discharge Clinical Impression: Acute exacerbation of chronic low back pain Condition: Stable Disposition: HOME, SELF-CARE Additional Instructions: LOW BACK PAIN: Three out of every four people will have an episode of disabling back pain during their lifetime. Most commonly the pain is due to straining of the muscles and ligaments in the low back. Usual treatment includes: (1) Rest on a firm surface. Avoid lying on your stomach. (2) Ice pack the painful area. After a few days, gentle heat may be used intermittently to relax the area, or ice packs can be continued. (3) Medication may be needed -- muscle relaxers and antiinflammatory medicines are commonly used. (4) As the back improves, exercises are prescribed to strengthen the back and abdominal muscles. Your doctor will advise you on the proper care for your back at each stage in your recovery. You may be better in a few days -- or healing may take several weeks. If new symptoms of a "herniated disc" (radiation of pain, numbness, or tingling down the back of the leg or weakness in the leg) occur, you should be re-examined. Further testing may be necessary. MUSCLE RELAXERS: Muscle relaxing medications are usually prescribed for acute muscle spasm or injury to the neck and back. They are often combined with antiinflammatory pain medication for increased relief. You may stop the muscle relaxer when the pain and stiffness have improved. Start the medication again if spasms recur. Muscle relaxers may cause drowsiness, especially with the first dose. Do not operate machinery or drive while under the effects of the medication. Most muscle relaxers last up to 24 hours. Do not combine the medication with alcohol. ICE PACKS: Apply ice packs frequently against the painful area. Many different schedules are recommended, such as "20 minutes on, 20 minutes off" or "one hour ice, two hours rest." If you need to work, you may need to go longer between ice treatments. You should plan to have the area ice packed AT LEAST one fourth of the time. The ice should be applied over the wrap, tape, or splint, or over a layer of cloth -- not directly against the skin. Some ice bags have a built-in cloth and can be put directly on the skin. WARM PACKS: After approximately two days, apply gentle heat (such as a heating pad or hot water bottle) for about 20 to 30 minutes about every two hours -- at least four times daily. Warmth and elevation will help you make a more rapid recovery , and will ease the pain considerably. Do not use HOT heat, and never apply heat for longer than 30 minutes. The continuous heat can invisibly damage skin and muscles -- even when no burn is seen on the surface. Damaged muscles can make you MORE sore. FOLLOW-UP CARE: If you have been referred to a physician for follow-up care, call the physician s office for an appointment as you were instructed or within the next two days. If you experience worsening or a significant change in your symptoms, notify the physician immediately or return to the Emergency Department at any time for re-evaluation. Prescriptions: Lidocaine [Lidoderm 5% (700 mg) Transdermal Patch] 1 patch TP DAILY #10 adh..patch Methocarbamol [Robaxin 500 mg Tablet] 500 mg PO Q4H PRN #15 tablet PRN Reason: Naproxen [Naprosyn 250 mg Tablet] 500 mg PO Q12H PRN #30 tablet PRN Reason: Forms: Elevated Blood Pressure Referrals: [facility] [Provider Group] - Follow up as needed
--- NOTE | 2017-09-07 10:38 | RADIOLOGY REPORT (SQ) ---
EXAM DESCRIPTION: HIP RIGHT AP/LATERAL COMPLETED DATE/TIME: 09/07/2017 10:31 am REASON FOR STUDY: fall off ladder COMPARISON: None. NUMBER OF VIEWS: Two views. TECHNIQUE: AP pelvis and additional frog-leg view of the right hip. LIMITATIONS: None. FINDINGS: MINERALIZATION: Normal. RIGHT HIP: No fracture or dislocation. No worrisome bone lesions. LEFT HIP: No fracture or dislocation. No worrisome bone lesions. PUBIS AND ISCHIUM: No fracture. PELVIS: No fracture. SACRUM: No fracture or dislocation. No worrisome bone lesions. LOWER LUMBAR SPINE: No fracture or dislocation. No worrisome bone lesions. No significant disc disea se. SOFT TISSUES: No findings. OTHER: No other significant finding. IMPRESSION: NEGATIVE STUDY OF THE RIGHT HIP. NO RADIOGRAPHIC EVIDENCE OF ACUTE INJURY. TECHNICAL DOCUMENTATION: JOB ID: [id number] [employer]- All Rights Reserved
[2017-09-07 10:55] VITALS: BP 120/91
== END 2017-09-07 10:55 | disposition home or self-care (01) ==
LOC: ER 09:48
DX: M54.5 Low back pain (principal); W11.XXXA Fall on and from ladder, initial encounter; Y99.0 Civilian activity done for income or pay; G89.29 Other chronic pain; I10 Essential (primary) hypertension; F17.200 Nicotine dependence, unspecified, uncomplicated; Z88.5 Allergy status to narcotic agent; Z85.828 Personal history of other malignant neoplasm of skin
CPT/HCPCS: 99283

== ENCOUNTER 2017-10-13 10:17 | Emergency (ER) | payer SELFPAY ==
[2017-10-13] MEDS ORDERED: KETOROLAC TROMETHAMINE INJ/PF 30 MG/1 ML SDV IV ONE ×2 (10:29→12:00)
[2017-10-13] MEDS ORDERED: RINGERS SOLUTION,LACTATED 1,000 ML IV ONE (10:29)
[2017-10-13] MEDS ORDERED: ONDANSETRON HCL INJ/PF 4 MG/2 ML SDV IV ONE (10:29)
--- NOTE | 2017-10-13 10:33 | ER Document Report ---
ED Medical Screen (RME) - General Mode of Arrival: Ambulatory Information source: Patient TRAVEL OUTSIDE OF THE U.S. IN LAST 30 DAYS: No <GABY MIR - Last Filed: 10/13/17 10:35> <CELESTINE ESPINOSA - Last Filed: 10/13/17 11:08> - General Chief Complaint: Nausea/Vomiting/Diarrhea Stated Complaint: FLANK PAIN Time Seen by Provider: 10/13/17 10:23 Notes: Patient is a 37 year old male presenting to the emergency department complaining of nausea, vomiting, and diarrhea onset 2 days ago as well as right sided flank pain onset today. Patient also complains of burning with urination. Patient denies a history of kidney stones or kidney infections. Patient also denies blood in stool or urine, fever, penile discharge, or new sexual partners. I have greeted and performed a rapid initial assessment of this patient. A comprehensive ED assessment and evaluation of the patient, analysis of test results and completion of the medical decision making process will be conducted by additional ED providers. (GABY MIR) - Related Data Allergies/Adverse Reactions: tramadol Allergy (Verified 10/13/17 10:17) Past Medical History - Past Medical History Cardiac Medical History: Reports: Hx Hypertension Renal/ Medical History: Denies: Hx Peritoneal Dialysis Malignancy Medical History: Reports Hx Skin Cancer Musculoskeltal Medical History: Reports Hx Arthritis, Reports Hx Musculoskeletal Deformity, Reports Hx Musculoskeletal Trauma - AC separation Past Surgical History: Reports: Other - Removal of skin cancer - Immunizations Immunizations up to date: No Hx Diphtheria, Pertussis, Tetanus Vaccination: No <GABY MIR - Last Filed: 10/13/17 10:35> Physical Exam <GABY MIR - Last Filed: 10/13/17 10:35> <CELESTINE ESPINOSA - Last Filed: 10/13/17 11:08> - Vital signs Vitals: Temp Pulse BP Pulse Ox 97.4 F 78 141/92 H 100 10/13/17 10:21 10/13/17 10:21 10/13/17 10:21 10/13/17 10:21 - Notes Notes: GENERAL: Alert, interacts well. Patient appears uncomfortable, leaned over and is clutching right side. LUNGS: Clear to auscultation bilaterally, no wheezes, rales, or rhonchi. No respiratory distress. HEART: Regular rate and rhythm. No murmurs, gallops, or rubs. ABDOMEN: Soft, some tenderness to RUQ. Non-distended. Bowel sounds present in all 4 quadrants. BACK: No rashes, no CVA tenderness to percussion. (GABY MIR) Course - Laboratory Result Diagrams: 10/13/17 10:40 10/13/17 10:40 <CELESTINE ESPINOSA - Last Filed: 10/13/17 11:08> - Vital Signs Vital signs: Temp Pulse Resp BP Pulse Ox 97.4 F 78 141/92 H 100 10/13/17 10:21 10/13/17 10:21 10/13/17 10:21 10/13/17 10:21 Scribe Documentation - Scribe Written by Scribe:: Yanelis Hubbard, 10/13/2017 10:32 acting as scribe for :: Yves <GABY MIR - Last Filed: 10/13/17 10:35>
[2017-10-13] MEDS ORDERED: NORMAL SALINE 1000 ML 1,000 ML IV ONE (10:55)
[2017-10-13 11:14] LABS: ABSOLUTE BASOPHILS # (AUTO) 0.2 10^3/uL (0.0-0.2); ABSOLUTE EOSINOPHILS # (AUTO) 0.3 10^3/uL (0.0-0.6); ABSOLUTE LYMPHOCYTES (AUTO) 3.6 10^3/uL (0.5-4.7); ABSOLUTE MONOCYTES (AUTO) 1.1 10^3/uL (0.1-1.4); ABSOLUTE NEUT (AUTO) 7.3 10^3/uL (1.7-8.2); BASOPHILS % (AUTO) 1.5 % (0-2); EOSINOPHILS % (AUTO) 2.4 % (0-6); HEMATOCRIT 45.1 % (37.9-51.0); HEMOGLOBIN 15.5 g/dL (13.5-17.0); HGB HCT DIFFERENCE 1.4; MEAN CORPUSCULAR HEMOGLOBIN 29.9 pg (27.0-33.4); MEAN CORPUSCULAR HGB CONC 34.3 g/dL (32.0-36.0); MEAN CORPUSCULAR VOLUME 87 fl (80-97); MONOCYTES % (AUTO) 9.1 % (3-13); RED BLOOD COUNT 5.17 10^6/uL (4.35-5.55); RED CELL DISTRIBUTION WIDTH 12.8 % (11.5-14.0); WHITE BLOOD COUNT 12.5 10^3/uL (4.0-10.5)
[2017-10-13 11:16] LABS: APPEARANCE,URINE SLIGHTLY-CLOUDY; BILIRUBIN,URINE NEGATIVE (NEGATIVE); GLUCOSE, URINE NEGATIVE (NEGATIVE); KETONES,URINE 20 mg/dL (NEGATIVE); LEUKOCYTE ESTERASE,URINE NEGATIVE (NEGATIVE); NITRITE,URINE NEGATIVE (NEGATIVE); PROTEIN,URINE 30 mg/dL (NEGATIVE); URINE SPECIFIC GRAVITY 1.016
[2017-10-13 11:32] LABS: URINE BARBITURATES SCREEN NEGATIVE; URINE METHADONE SCREEN NEGATIVE; URINE OPIATES LOW UNCONFIRMED POSITIVE; URINE PHENCYCLIDINE SCREEN NEGATIVE
--- NOTE | 2017-10-13 11:36 | ER Document Report ---
ED General - General Chief Complaint: Nausea/Vomiting/Diarrhea Stated Complaint: FLANK PAIN Time Seen by Provider: 10/13/17 10:23 Mode of Arrival: Ambulatory TRAVEL OUTSIDE OF THE [place] IN LAST 30 DAYS: No - HPI Patient complains to provider of: Nausea vomiting diarrhea Notes: Patient coming in for evaluation nausea vomiting diarrhea ongoing for the last few days developed right flank pain today. Patient resting comfortably in bed holding his right hip. Denies any trauma denies any fever chills nausea vomiting patient is able to sit up without difficulty. Denies any pain down his leg. Denies any bowel or bladder incontinence. Patient denies a history of penile discharge or hematuria. Patient denies any sick contacts. - Related Data Allergies/Adverse Reactions: tramadol Allergy (Verified 10/13/17 10:17) Past Medical History - General Information source: Patient - Social History Smoking Status: Current Every Day Smoker Family History: Arthritis, CAD, COPD, CVA, Hyperlipidemia, Malignancy. denies: Hypertension, Thyroid Disfunction Patient has suicidal ideation: No Patient has homicidal ideation: No - Past Medical History Cardiac Medical History: Reports: Hx Hypertension Renal/ Medical History: Denies: Hx Peritoneal Dialysis Malignancy Medical History: Reports Hx Skin Cancer Musculoskeltal Medical History: Reports Hx Arthritis, Reports Hx Musculoskeletal Deformity, Reports Hx Musculoskeletal Trauma - AC separation Past Surgical History: Reports: Other - Removal of skin cancer - Immunizations Immunizations up to date: No Hx Diphtheria, Pertussis, Tetanus Vaccination: No Review of Systems - Review of Systems Constitutional: No symptoms reported EENT: No symptoms reported Cardiovascular: No symptoms reported Respiratory: No symptoms reported Gastrointestinal: No symptoms reported Genitourinary: Flank pain Male Genitourinary: No symptoms reported Musculoskeletal: No symptoms reported Skin: No symptoms reported Hematologic/Lymphatic: No symptoms reported Neurological/Psychological: No symptoms reported -: Yes All other systems reviewed and negative Physical Exam - Vital signs Vitals: Temp Pulse BP Pulse Ox 97.4 F 78 141/92 H 100 10/13/17 10:21 10/13/17 10:21 10/13/17 10:21 10/13/17 10:21 Interpretation: Normal - General General appearance: Appears well, Alert - HEENT Head: Normocephalic, Atraumatic Eyes: Normal Pupils: PERRL - Respiratory Respiratory status: No respiratory distress Chest status: Nontender Breath sounds: Normal Chest palpation: Normal - Cardiovascular Rhythm: Regular Heart sounds: Normal auscultation Murmur: No - Abdominal Inspection: Normal Distension: No distension Bowel sounds: Normal Tenderness: Nontender Organomegaly: No organomegaly - Back Back: Normal, Nontender - Extremities General upper extremity: Normal inspection, Nontender, Normal color, Normal ROM , Normal temperature General lower extremity: Normal inspection, Nontender, Normal color, Normal ROM , Normal temperature, Normal weight bearing. No: Alina's sign - Neurological Neuro grossly intact: Yes Cognition: Normal Orientation: AAOx4 Betty Coma Scale Eye Opening: Spontaneous [place] Coma Scale Verbal: Oriented Betty Coma Scale Motor: Obeys Commands [place] Coma Scale Total: 15 Speech: Normal Motor strength normal: LUE, RUE, LLE, RLE Sensory: Normal - Psychological Associated symptoms: Normal affect, Normal mood - Skin Skin Temperature: Warm Skin Moisture: Dry Skin Color: Normal Course - Re-evaluation Re-evalutation: 10/13/17 12:33 CT scan is negative for any signs of kidney stone. Patient's laboratory studies that showed elevation LFTs. Patient states he has been taking her medication that does have acetaminophen at this [id number]. Patient denies taking extra acetaminophen. Patient states he did take a 20 mg oxycodone prior to arrival unaware if this was a Percocet or does oxycodone. Patient also states he took Adderall day prior to arrival. Patient acetaminophen return 0. LFTs although elevated shows normal coags. I did send off a hepatitis panel. Patient will be treated for muscle skeletal calls patient does have multiple visits for recurring back pain. We will treat with Lidoderm patch will give the patient a dose of steroids. Encouraged patient to take Tylenol Motrin for his pain control. Patient will be given a prescription for Zofran for his nausea and vomiting. - Vital Signs Vital signs: Temp Pulse Resp BP Pulse Ox 97.4 F 78 141/92 H 100 10/13/17 10:21 10/13/17 10:21 10/13/17 10:21 10/13/17 10:21 - Laboratory Result Diagrams: 10/13/17 10:40 10/13/17 10:40 Laboratory results interpreted by me: 10/13/17 10/13/17 10/13/17 10:40 10:40 10:40 WBC 12.5 H Calcium 10.3 H AST 619 H ALT 1210 H Urine Protein 30 H Urine Ketones 20 H Urine Blood LARGE H Urine Urobilinogen 4.0 H Acetaminophen 10/13/17 10:40 WBC Calcium AST ALT Urine Protein Urine Ketones Urine Blood Urine Urobilinogen Acetaminophen < 10 L Discharge - Discharge Clinical Impression: Nausea vomiting and diarrhea, Right flank pain, Elevated LFTs Condition: Good Disposition: HOME, SELF-CARE Instructions: Gastroenteritis (adult) ([facility]), Liver Function Abnormality ([facility]), Flank Pain ([facility]) Additional Instructions: More likely have underlying virus. He did have elevation in liver function tests I recommend she follow-up in approximately 2 weeks with 1 of the clinics provided for repeat laboratory studies. We will send off studies to check for hepatitis A, B, and C which also can cause elevation in liver function test and also can cause nausea vomiting diarrhea. Please avoid excess Tylenol please avoid alcohol. I would recommend not to take any body else's medications. The pain in the right side is more likely caused by pulled muscle. I recommend taking anti-inflammatory medication such as that prescribed for your pain. He may take the nausea medication as prescribed as well. Return to the ER symptoms worsen follow-up with your primary care physician. Prescriptions: Metoclopramide HCl [Reglan] 5 mg PO Q6 #30 tablet Naproxen [Naprosyn 250 mg Tablet] 250 mg PO DAILY PRN #14 tablet PRN Reason: Ondansetron [Zofran Odt 4 mg Tablet] 1 - 2 tab PO Q4H PRN #15 tab.rapdis PRN Reason: For Nausea/Vomiting Forms: Return to Work
[2017-10-13 11:38] LABS: ALBUMIN 4.2 g/dL (3.5-5.0); ALKALINE PHOSPHATASE 92 U/L (38-126); ANION GAP 12 (5-19); ASPARTATE AMINO TRANSFERASE 619 U/L (17-59); BILIRUBIN,DIRECT 0.3 mg/dL (0.0-0.4); BILIRUBIN,TOTAL 0.5 mg/dL (0.2-1.3); BLOOD UREA NITROGEN 14 mg/dL (7-20); CALCIUM 10.3 mg/dL (8.4-10.2); CARBON DIOXIDE 27 mmol/L (22-30); CHLORIDE 102 mmol/L (98-107); CREATININE RESULT 0.91 mg/dL (0.52-1.25); GLUCOSE 101 mg/dL (75-110); LIPASE 39.7 U/L (23-300); POTASSIUM 4.6 mmol/L (3.6-5.0); SODIUM 141.1 mmol/L (137-145); TOTAL PROTEIN 7.1 g/dL (6.3-8.2)
[2017-10-13 11:47] LABS: ALANINE AMINOTRANSFERASE 1210 U/L (21-72)
--- NOTE | 2017-10-13 11:49 | RADIOLOGY REPORT (SQ) ---
EXAM DESCRIPTION: CT LTD RENAL STONE PROTOCOL ON COMPLETED DATE/TIME: 10/13/2017 11:26 am REASON FOR STUDY: right flank pain COMPARISON: CT abdomen pelvis 03/10/2009 TECHNIQUE: CT scan of the abdomen and pelvis performed without intravenous or oral contrast. Images reviewed with lung, soft tissue, and bone windows. Reconstructed coronal and sagittal MPR images revi ewed. All images stored on PACS. All CT scanners at this facility use dose modulation, iterative reconstruction, and/or weight based d osing when appropriate to reduce radiation dose to as low as reasonably achievable (ALARA). [facility]: Dose Right [facility]: CareDose [facility]: Dose Right [facility]: Teradose 4D [facility]: Smart MediaScrape RADIATION DOSE: CT Rad equipment meets quality standard of care and radiation dose reduction techniq ues were employed. CTDIvol: 5.0 mGy. DLP: 263 mGy-cm.mGy. LIMITATIONS: None. FINDINGS: LOWER CHEST: No significant findings. No nodules or infiltrates. NON-CONTRASTED LIVER, SPLEEN, ADRENALS: Evaluation limited by lack of IV contrast. No identified sign ificant masses. PANCREAS: No masses. No peripancreatic inflammatory changes. GALLBLADDER: No identified stones by CT criteria. No inflammatory changes to suggest cholecystitis. KIDNEYS AND URETERS: Horseshoe kidney, with fusion of the lower poles. No suspicious masses. Assess ment limited by lack of IV contrast. No significant calcifications. No hydronephrosis or hydroure ter. AORTA AND RETROPERITONEUM: No aneurysm. No retroperitoneal masses or adenopathy. BOWEL AND PERITONEAL CAVITY: No obvious masses or inflammatory changes. No free fluid. APPENDIX: Normal. PELVIS, BLADDER, AND ABDOMINAL WALL:No abnormal masses. No free fluid. Bladder normal. BONES: No significant findings. OTHER: No other significant finding. IMPRESSION: NO SIGNIFICANT OR ACUTE PROCESS IN THE ABDOMEN OR PELVIS. COMMENT: Quality ID # [id number]: Final reports with documentation of one or more dose reduction techniques (e.g., Automated exposure control, adjustment of the mA and/or kV according to patient size, use of iterative reconstruction technique) TECHNICAL DOCUMENTATION: JOB ID: [id number]- All Rights Reserved
[2017-10-13] MEDS ORDERED: DEXAMETHASONE SOD PHOS INJ 10 MG/1 ML VIAL IV ONE (12:00)
[2017-10-13] MEDS ORDERED: LIDOCAINE 5% (700 MG) TRANSDERMAL ADH..PATCH TP ONE (12:01)
[2017-10-13 12:11] LABS: PARTIAL THROMBOPLASTIN TIME 25.9 SEC (23.5-35.8)
[2017-10-13 13:55] VITALS: BP 122/77
== END 2017-10-13 13:55 | disposition home or self-care (01) ==
LOC: ER 10:17
DX: R11.2 Nausea with vomiting, unspecified (principal); R19.7 Diarrhea, unspecified; R10.9 Unspecified abdominal pain; R79.89 Other specified abnormal findings of blood chemistry; F17.200 Nicotine dependence, unspecified, uncomplicated
CPT/HCPCS: 96376; 99284; 96361; 96375; 96365; 36415; 83690; 80307 ×2; 85025; 85610; 85730; 80053; 81001; 80074; 76380; J1885; J2405; J7030; J7120; J1100

== ENCOUNTER 2017-12-31 09:13 | Emergency (ER) | payer SELFPAY ==
[2017-12-31 09:41] VITALS: BP 132/88
[2017-12-31] MEDS ORDERED: IPRATROPIUM/ALBUTEROL 0.5-2.5 MG/3 ML AMPUL NEB ONE (09:44)
[2017-12-31] MEDS ORDERED: IBUPROFEN 600 MG TABLET PO ONE (09:44)
--- NOTE | 2017-12-31 09:49 | ER Document Report ---
ED General - General Chief Complaint: Breathing Difficulty Stated Complaint: DIFFICULTY BREATHING Time Seen by Provider: 12/31/17 09:44 Mode of Arrival: Ambulatory Information source: Patient Notes: This is a 37-year-old man with a history of cigarette smoking, melanoma presents to the emergency room with persistent cough for the past 2 months. He does report he gets a lot of sputum production and it is difficult to clear. Sputum is sometimes white sometimes beba color. There has been no recent change in the sputum color. He denies fever. He denies night sweats. He denies chills. He denies weight loss. Past medical history: Hypertension, chronic back pain Past surgical history: Melanoma noma removed from the right shoulder Cigarettes: Half pack per day since age 17 Medicines: "Muscle relaxer" No known drug allergies TRAVEL OUTSIDE OF THE [place] IN LAST 30 DAYS: No - HPI Onset: Other - Past few months Onset/Duration: Intermittent Quality of pain: Dull Severity: Moderate Pain Level: 2 Associated symptoms: Shortness of breath, Other - Denies weight loss. denies: Chills, Fever Exacerbated by: Walking Relieved by: Denies Similar symptoms previously: Yes Recently seen / treated by doctor: No - Related Data Allergies/Adverse Reactions: tramadol Allergy (Verified 12/31/17 09:16) Past Medical History - General Information source: Patient - Social History Smoking Status: Current Every Day Smoker Cigarette use (# per day): Yes - Half a pack per day Chew tobacco use (# tins/day): No Smoking Education Provided: Yes - 2 minutes Frequency of alcohol use: None Drug Abuse: None Lives with: Spouse/Significant other Family History: Arthritis, CAD, COPD, CVA, Hyperlipidemia, Malignancy. denies: Hypertension, Thyroid Disfunction Patient has suicidal ideation: No Patient has homicidal ideation: No - Past Medical History Cardiac Medical History: Reports: Hx Hypertension Renal/ Medical History: Denies: Hx Peritoneal Dialysis Malignancy Medical History: Reports Hx Skin Cancer Musculoskeltal Medical History: Reports Hx Arthritis, Reports Hx Musculoskeletal Deformity, Reports Hx Musculoskeletal Trauma - AC separation Past Surgical History: Reports: Other - Removal of skin cancer - Immunizations Immunizations up to date: No Hx Diphtheria, Pertussis, Tetanus Vaccination: No Review of Systems - Review of Systems Constitutional: denies: Chills, Fever EENT: No symptoms reported Cardiovascular: No symptoms reported Respiratory: See HPI, Cough Gastrointestinal: No symptoms reported Genitourinary: No symptoms reported Male Genitourinary: No symptoms reported Musculoskeletal: Back pain Skin: See HPI Hematologic/Lymphatic: No symptoms reported Neurological/Psychological: No symptoms reported Physical Exam - Vital signs Vitals: Temp Pulse Resp BP Pulse Ox 98.4 F 92 18 132/88 H 100 12/31/17 09:40 03 09:40 12/31/17 09:40 12/31/17 09:40 12/31/17 09:40 Notes: Physical exam: GENERAL: 7-year-old man, alert and oriented 3, no acute distress. Blood pressure 136/88, respirations 16, O2 sat 100%, patient looks comfortable HEAD: Atraumatic, normocephalic. EYES: Pupils equal round and reactive to light, extraocular movements intact, sclera anicteric, conjunctiva are normal. ENT: TMs normal, nares patent, oropharynx clear without exudates. Moist mucous membranes. NECK: Normal range of motion, supple without obvious mass or JVD. LUNGS: Breath sounds clear to auscultation bilaterally and equal. No wheezes rales or rhonchi. HEART: Regular rate and rhythm without murmurs, rubs or gallops. ABDOMEN: Soft, normoactive bowel sounds. No tenderness to palpation. No guarding, no rebound. No masses appreciated. EXTREMITIES: Normal range of motion, no pitting or edema. No clubbing or cyanosis. NEUROLOGICAL: Cranial nerves II through XII grossly intact. Normal speech, moving all extremities. PSYCH: Normal mood, normal affect. SKIN: Warm, Dry, normal turgor, no rashes. Patient does have moles on the neck and shoulder. Course - Re-evaluation Re-evalutation: 12/31/17 09:49 Patient does have follow-up with a group home worker in [place] and will be following up with that doctor. Trial nebulizer given. - Vital Signs Vital signs: Temp Pulse Resp BP Pulse Ox 98.4 F 92 18 132/88 H 100 12/31/17 09:40 12/31/17 09:40 12/31/17 09:40 12/31/17 09:40 12/31/17 09:40 - Diagnostic Test Radiology reviewed: Image reviewed, Reports reviewed - Chest x-ray shows no infiltrates or effusions Discharge - Discharge Clinical Impression: Bronchitis Condition: Stable Disposition: HOME, SELF-CARE Instructions: Bronchitis ([facility]) Additional Instructions: As we discussed, the chest x-ray showed no pneumonia or evidence of masses/ lesions which is good. However, it is starting to show some signs of emphysema (COPD). I recommend you try and stop smoking as soon as you can. I would like you to follow-up as planned with the group home worker week regarding her moles. Take the nebulizer treatment as prescribed. Take the antibiotics as prescribed. Follow-up with the primary care doctor as well: I left the number for the [facility]. Thank you for choosing [facility] for your care. The examination and treatment you have received in the Emergency Department today has been rendered on an emergency basis only and is not intended to be a substitute for complete medical care. You should contact your doctor as it is important that she/he examine you for any new or remaining problems. If given a copy of any lab tests or radiology reports, please bring them with you when you see your physician. If your problem worsens or new symptoms appear and you are unable to arrange prompt follow-up care, return to the Emergency Department. Specific signs to look out for: Worsening shortness of breath or any concerns or getting worse Primary Care Doctor's affiliated with [facility]: If you do not have a primary care doctor or you are unable to get an appointment during that time, you can try one of the doctor's below. These are internal medicine doctor's that have admitting priveledges to the hospital ( they will see you both in the office as well as in this hospital if you are ever hospitalized here). Dr. Maura Zaman [address], [place] [address] [phone] Dr Castillo Address: [address] [facility] , [place] [address] [address] Address: [address], [place] [address] If you don't have insurance: follow-up at the [facility] which is a free clinic. [address], [place] [address] [phone] Prescriptions: Doxycycline Hyclate 100 mg PO BID #20 capsule
--- NOTE | 2017-12-31 10:17 | RADIOLOGY REPORT (SQ) ---
EXAM DESCRIPTION: CHEST PA/LAT COMPLETED DATE/TIME: 12/31/2017 10:10 am REASON FOR STUDY: cough COMPARISON: None. EXAM PARAMETERS: NUMBER OF VIEWS: two views TECHNIQUE: Digital Frontal and Lateral radiographic views of the chest acquired. RADIATION DOSE: NA LIMITATIONS: none FINDINGS: LUNGS AND PLEURA: No opacities, masses or pneumothorax. No pleural effusion. MEDIASTINUM AND HILAR STRUCTURES: No masses or contour abnormalities. HEART AND VASCULAR STRUCTURES: Heart normal size. No evidence for failure. BONES: No acute findings. HARDWARE: None in the chest. OTHER: No other significant finding. IMPRESSION: NO SIGNIFICANT RADIOGRAPHIC FINDING IN THE CHEST. TECHNICAL DOCUMENTATION: JOB ID: [id number]- All Rights Reserved Reading location - IP/workstation name: [email or web address]
[2017-12-31] MEDS ORDERED: ALBUTEROL SULFATE HFA (90 MCG/PUFF) 8 GM MDI (1 MDI/ER DISP) IH PRN (10:57)
== END 2017-12-31 11:05 | disposition home or self-care (01) ==
LOC: ER 09:13
DX: J40 Bronchitis, not specified as acute or chronic (principal); R06.02 Shortness of breath; R05 Cough; F17.210 Nicotine dependence, cigarettes, uncomplicated; Z85.820 Personal history of malignant melanoma of skin
CPT/HCPCS: 94640; 99285; 71046; J3490; J7620

== ENCOUNTER 2018-09-26 16:37 | Emergency (ER) | payer SELFPAY ==
[2018-09-26 17:12] VITALS: BP 130/83
[2018-09-26] MEDS ORDERED: AZITHROMYCIN 250 MG TABLET PO ONE (17:55)
[2018-09-26] MEDS ORDERED: CEFTRIAXONE INJ 250 MG VIAL IM ONE (17:55)
[2018-09-26] MEDS ORDERED: LIDOCAINE 1% INJ-PF (10 MG/ML) 30 ML SDV INJ ONE (17:55)
[2018-09-26 19:05] LABS: APPEARANCE,URINE SLIGHTLY-CLOUDY; BILIRUBIN,URINE NEGATIVE (NEGATIVE); COLOR,URINE STRAW; GLUCOSE, URINE NEGATIVE (NEGATIVE); KETONES,URINE NEGATIVE (NEGATIVE); LEUKOCYTE ESTERASE,URINE LARGE (NEGATIVE); NITRITE,URINE NEGATIVE (NEGATIVE); PROTEIN,URINE NEGATIVE (NEGATIVE); URINE SPECIFIC GRAVITY 1.011; UROBILINOGEN,URINE NEGATIVE mg/dL (<2.0)
--- NOTE | 2018-09-26 19:11 | ER Document Report ---
HPI - HPI Patient complains to provider of: Penile discharge Time Seen by Provider: 09/26/18 17:48 Onset/Duration: Persistent Quality of pain: Burning Pain Level: 4 Context: Patient complains of burning to the penis with discharge for the past 2 days. Patient complains of dysuria. Patient denies any fever. Patient denies any recent sexual intercourse and therefore denies any significant concern about STD at this time. Associated Symptoms: denies: Fever, Nausea, Vomiting Exacerbated by: Denies Relieved by: Denies Similar symptoms previously: No Recently seen / treated by doctor: No - ROS ROS below otherwise negative: Yes Systems Reviewed and Negative: Yes All other systems reviewed and negative - CONSTITUTIONAL Constitutional: DENIES: Fever - EENT EENT: DENIES: Sore Throat - GASTROINTESTINAL Gastrointestinal: DENIES: Abdominal Pain - URINARY Urinary: REPORTS: Dysuria - REPRODUCTIVE Reproductive: DENIES: : - MUSCULOSKELETAL Musculoskeletal: DENIES: Extremity pain - DERM Skin Color: Normal Skin Problems: None Past Medical History - General Information source: Patient - Social History Smoking Status: Current Every Day Smoker Smoking Education Provided: Yes Frequency of alcohol use: None Drug Abuse: None Occupation: [employer] Family History: Arthritis, CAD, COPD, CVA, Hyperlipidemia, Malignancy. denies: Hypertension, Thyroid Disfunction Renal/ Medical History: Denies: Hx Peritoneal Dialysis Malignancy Medical History: Reports Hx Skin Cancer Musculoskeletal Medical History: Reports Hx Arthritis, Reports Hx Musculoskeletal Deformity, Reports Hx Musculoskeletal Trauma - AC separation Surgical Hx: Negative Past Surgical History: Reports: Other - Removal of skin cancer - Immunizations Immunizations up to date: No Hx Diphtheria, Pertussis, Tetanus Vaccination: No Vertical Provider Document - CONSTITUTIONAL Agree With Documented VS: Yes Exam Limitations: No Limitations General Appearance: WD/WN, No Apparent Distress - INFECTION CONTROL TRAVEL OUTSIDE OF THE [place] IN LAST 30 DAYS: No - HEENT HEENT: Atraumatic, Normocephalic - NECK Neck: Normal Inspection - RESPIRATORY Respiratory: Breath Sounds Normal, No Respiratory Distress - CARDIOVASCULAR Cardiovascular: Regular Rate, Regular Rhythm - GI/ABDOMEN Gastrointestinal: Abdomen Soft, Abdomen Non-Tender, No Organomegaly - REPRODUCTIVE Male Genitalia: Normal Inspection Notes: Normal cremasteric reflex, no inguinal lymphadenopathy, no scrotal tenderness, no obvious drainage from urethra - BACK Back: Normal Inspection. negative: CVA Tenderness-Right, CVA Tenderness-Left - MUSCULOSKELETAL/EXTREMETIES Musculoskeletal/Extremeties: MAEW - NEURO Level of Consciousness: Awake, Alert, Appropriate Motor/Sensory: No Motor Deficit - DERM Integumentary: Warm, Dry, No Rash Course - Re-evaluation Re-evalutation: 09/26/18 19:09 Patient with concern about penile discharge, will treat prophylactically for gonorrhea and chlamydia. Urine culture is pending - Vital Signs Vital signs: Temp Pulse Resp BP Pulse Ox 98.2 F 77 16 130/83 H 99 09/26/18 17:11 09/26/18 17:11 09/26/18 17:11 09/26/18 17:11 09/26/18 17:11 - Laboratory Laboratory results interpreted by me: 09/26/18 18:11 Urine Blood SMALL H Ur Leukocyte Esterase LARGE H 09/26/18 19:09 Labs- Entire Visit 09/26/18 18:11 Urine Color STRAW Urine Appearance SLIGHTLY-CLOUDY Urine pH 6.0 Ur Specific [place] 1.011 Urine Protein NEGATIVE Urine Glucose (UA) NEGATIVE Urine Ketones NEGATIVE Urine Blood SMALL H Urine Nitrite NEGATIVE Urine Bilirubin NEGATIVE Urine Urobilinogen NEGATIVE Ur Leukocyte Esterase LARGE H Urine WBC (Auto) 47 Urine RBC (Auto) 3 Urine Bacteria (Auto) TRACE Urine Mucus (Auto) RARE Urine Ascorbic Acid NEGATIVE Discharge - Discharge Clinical Impression: Urethritis UTI (urinary tract infection) Qualifiers: Urinary tract infection type: site unspecified Hematuria presence: with hematuria Qualified Code(s): N39.0 - Urinary tract infection, site not specified Condition: Stable Disposition: HOME, SELF-CARE Instructions: Azithromycin ([facility]), Rocephin ([facility]), Urethritis ([facility]), Urinary Tract Infection ([facility]) Additional Instructions: Return immediately for any new or worsening symptoms Followup with your primary care provider, call tomorrow to make a followup appointment Prescriptions: Doxycycline Hyclate 100 mg PO BID #20 capsule Forms: Smoking Cessation Education, Return to Work [facility] - Follow up as needed
[2018-09-26 20:35] LABS: CHLAM PCR NOT DETECTED (NOT DETECT); GON PCR DETECTED (NOT DETECT)
== END 2018-09-26 19:51 | disposition home or self-care (01) ==
LOC: ER 16:37
DX: N34.2 Other urethritis (principal); R36.9 Urethral discharge, unspecified; R31.9 Hematuria, unspecified; F17.200 Nicotine dependence, unspecified, uncomplicated; Z85.828 Personal history of other malignant neoplasm of skin
CPT/HCPCS: 99283; 96372; 87086; 81001; 87491; 87591; J3490; J0696

== ENCOUNTER 2018-10-10 13:57 | Emergency (ER) | payer SELFPAY ==
[2018-10-10] MEDS ORDERED: DEXAMETHASONE 4 MG TABLET PO ONE (15:33)
[2018-10-10] MEDS ORDERED: KETOROLAC TROMETHAMINE 60 MG/2 ML SDV IM ONE (15:33)
[2018-10-10] MEDS ORDERED: LIDOCAINE 5% (700 MG) TRANSDERMAL ADH..PATCH TP ONE (15:33)
--- NOTE | 2018-10-10 15:40 | ER Document Report ---
ED Neck/Back Problem - General Chief Complaint: Back Injury Stated Complaint: BACK INJURY Time Seen by Provider: 10/10/18 15:25 Mode of Arrival: Ambulatory Information source: Patient Notes: 38-year-old male presented to ED for complaint of back pain started yesterday. 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 He states he has had pain since then. He is able to walk with a even steady gait. Patient is alert and oriented respirations regular and unlabored. TRAVEL OUTSIDE OF THE [place] IN LAST 30 DAYS: No - HPI Patient complains to provider of: Lower back Onset: Yesterday Onset: Sudden Timing: Still present Quality of pain: Burning, Sharp Severity: Moderate Pain Level: 3 Context: Lifting Recent injury: Yes Associated symptoms: Like prior neck/back pain, Radiation to leg, Lower back pain. denies: Constipation, Incontinence, Motor loss, Numbness/tingling, Sensory loss, Sweaty, Unable to urinate, Upper back pain Exacerbated by: Movement of trunk Relieved by: Nothing Similar symptoms previously: No Recently seen / treated by doctor: No - Related Data Allergies/Adverse Reactions: tramadol Allergy (Verified 10/10/18 13:59) Past Medical History - General Information source: Patient - Social History Smoking Status: Current Every Day Smoker Cigarette use (# per day): Yes - Pack per day Smoking Education Provided: Yes Frequency of alcohol use: None Drug Abuse: None Lives with: Family - aunt Family History: Arthritis, CAD, COPD, CVA, Hyperlipidemia, Malignancy. denies: Hypertension, Thyroid Disfunction - Past Medical History Cardiac Medical History: Reports: Hx Hypertension Pulmonary Medical History: Reports: None EENT Medical History: Reports: None Neurological Medical History: Reports: None Endocrine Medical History: Reports: None Renal/ Medical History: Reports: None Malignancy Medical History: Reports Hx Skin Cancer GI Medical History: Reports: None Musculoskeletal Medical History: Reports Hx Arthritis, Reports Hx Musculoskeletal Deformity - Degenerative disc disease, Reports Hx Musculoskeletal Trauma - AC separation Skin Medical History: Reports None Psychiatric Medical History: Reports: None Traumatic Medical History: Reports: None Infectious Medical History: Reports: None Past Surgical History: Reports: Other - Removal of skin cancer - Immunizations Immunizations up to date: No Hx Diphtheria, Pertussis, Tetanus Vaccination: No Review of Systems - Review of Systems Constitutional: No symptoms reported EENT: No symptoms reported Cardiovascular: No symptoms reported Respiratory: No symptoms reported Gastrointestinal: No symptoms reported Genitourinary: No symptoms reported Male Genitourinary: No symptoms reported Musculoskeletal: Back pain, Muscle pain, Muscle stiffness Skin: No symptoms reported Hematologic/Lymphatic: No symptoms reported Neurological/Psychological: No symptoms reported -: Yes All other systems reviewed and negative Physical Exam - Vital signs Vitals: Temp Pulse Resp BP Pulse Ox 97.8 F 76 18 125/70 100 10/10/18 14:44 10/10/18 14:44 10/10/18 14:44 10/10/18 14:44 10/10/18 14:44 Interpretation: Normal - General General appearance: Appears well, Alert General appearance pediatric: Attentiveness normal, Good eye contact - HEENT Head: Normocephalic, Atraumatic Eyes: Normal Pupils: PERRL - Respiratory Respiratory status: No respiratory distress Chest status: Nontender Breath sounds: Normal Chest palpation: Normal - Cardiovascular Rhythm: Regular Heart sounds: Normal auscultation Murmur: No - Abdominal Inspection: Normal Distension: No distension Bowel sounds: Normal Tenderness: Nontender Organomegaly: No organomegaly - Back Back: Normal, Tender. No: Vertebra tenderness Notes: Bilateral low back pain with no pain to the vertebra. He does have pain across both buttocks and down both legs worse on the right. - Extremities General upper extremity: Normal inspection, Nontender, Normal color, Normal ROM, Normal temperature General lower extremity: Normal inspection, Nontender, Normal color, Normal ROM, Normal temperature, Normal weight bearing. No: Alina's sign - Neurological Neuro grossly intact: Yes Cognition: Normal Orientation: AAOx4 [place] Coma Scale Eye Opening: Spontaneous [place] Coma Scale Verbal: Oriented [place] Coma Scale Motor: Obeys Commands Ped [place] Coma Scale Eye Opening: Spontaneous Ped [place] Coma Scale Verbal: Age appropriate verbal Ped [place] Coma Scale Motor: Spontaneous Movements Speech: Normal Motor strength normal: LUE, RUE, LLE, RLE Sensory: Normal - Psychological Associated symptoms: Normal affect, Normal mood - Skin Skin Temperature: Warm Skin Moisture: Dry Skin Color: Normal Course - Re-evaluation Re-evalutation: 10/10/18 21:03 Patient states the pain is much worse on the right. He does have a history of degenerative disc disease and sciatica.He states he has a history of dege nerative disc disease with sciatica. States what he needs most of anything is some muscle relaxers for the muscle pain. After performing a Medical Screening Examination, I estimate there is LOW risk for EXPANDING OR RUPTURED ABDOMINAL AORTIC ANEURYSM, CAUDA EQUINA SYNDROME, EPIDURAL MASS LESION, or HERNIATED DISK CAUSING SEVERE SPINAL STENOSIS, thus I consider the discharge disposition reasonable. I have reevaluated this patient multiple times and no significant life threatening changes are noted. The patient and I have discussed the diagnosis and risks, and we agree with discharging home and close follow-up. We also discussed returning to the Emergency Department immediately if new or worsening symptoms occur with the understanding that symptoms and presentations can change. We have discussed the symptoms which are most concerning (e.g., saddle anesthesia, urinary or bowel incontinence or retention, changing or worsening pain) that necessitate immediate return. - Vital Signs Vital signs: Temp Pulse Resp BP Pulse Ox 98.2 F 81 16 113/72 97 10/10/18 15:56 10/10/18 15:56 10/10/18 15:56 10/10/18 15:56 10/10/18 15:56 Discharge - Discharge Clinical Impression: Low back pain Qualifiers: Chronicity: chronic Back pain laterality: bilateral Sciatica presence: with sciatica Sciatica laterality: sciatica of right side Qualified Code(s): M54.41 - Lumbago with sciatica, right side; G89.29 - Other chronic pain Condition: Stable Disposition: HOME, SELF-CARE Instructions: Family Physicians / Practices Additional Instructions: LOW BACK PAIN: Three out of every four people will have an episode of disabling back pain during their lifetime. Most commonly the pain is due to straining of the muscles and ligaments in the low back. Usual treatment includes: (1) Rest on a firm surface. Avoid lying on your stomach. (2) Ice pack the painful area. After a few days, gentle heat may be used intermittently to relax the area, or ice packs can be continued. (3) Medication may be needed -- muscle relaxers and antiinflammatory medicines are commonly used. (4) As the back improves, exercises are prescribed to strengthen the back and abdominal muscles. Your doctor will advise you on the proper care for your back at each stage in your recovery. You may be better in a few days -- or healing may take several weeks. If new symptoms of a "herniated disc" (radiation of pain, numbness, or tingling down the back of the leg or weakness in the leg) occur, you should be re-examined. Further testing may be necessary. MUSCLE RELAXERS: Muscle relaxing medications are usually prescribed for acute muscle spasm or injury to the neck and back. They are often combined with antiinflammatory pain medication for increased relief. You may stop the muscle relaxer when the pain and stiffness have improved. Start the medication again if spasms recur. Muscle relaxers may cause drowsiness, especially with the first dose. Do not operate machinery or drive while under the effects of the medication. Most muscle relaxers last up to 24 hours. Do not combine the medication with alcohol. ICE PACKS: Apply ice packs frequently against the painful area. Many different schedules are recommended, such as "20 minutes on, 20 minutes off" or "one hour ice, two hours rest." If you need to work, you may need to go longer between ice treatments. You should plan to have the area ice packed AT LEAST one fourth of the time. The ice should be applied over the wrap, tape, or splint, or over a layer of cloth -- not directly against the skin. Some ice bags have a built-in cloth and can be put directly on the skin. WARM PACKS: After approximately two days, apply gentle heat (such as a heating pad or hot water bottle) for about 20 to 30 minutes about every two hours -- at least four times daily. Warmth and elevation will help you make a more rapid recovery, and will ease the pain considerably. Do not use HOT heat, and never apply heat for longer than 30 minutes. The continuous heat can invisibly damage skin and muscles -- even when no burn is seen on the surface. Damaged muscles can make you MORE sore. Stretching Exercises for the Back The physician has recommended that you begin stretching exercises for your back. These are often used even while the back is painful. However, you should notify the physician if the activities seem to increase your pain. PELVIC TILT: Lie flat on your back with knees bent. Tighten your stomach and buttock muscles so it flattens your lower back against the floor. Hold 10 seconds. Repeat 10 times, twice daily. KNEE RAISE: Lying on the back with knees bent, raise one knee to your chest, then the other. Hold both knees against the chest 10 seconds, then lower one knee at a time. Repeat 10 times, twice daily. PARTIAL TRUNK RAISE: Lie face down, arms at your sides. Keeping your waist on the floor, use your arms raise your chest up. Support yourself on your elbows for 30 seconds. Repeat twice daily, increasing the time to two minutes as you recover. STEROID MEDICATION: You have been given a medicine of the cortisone/steroid class. This medication is used to control inflammation or allergy. It is usually only given for a short period of time, until the acute process subsides. There are usually no side effects from short-term use of cortisone-like medications. Some persons feel an increased sense of well-being and are not sleepy at bedtime. Long-term use of cortisone medications is best avoided, unless required for a severe condition. If your condition does not remit, or relapses after the course of corticosteroid medication, you should consult your physician. Toradol Injection You have been given an injection of ketorolac tromethamine (Toradol). This is an excellent, safe drug for pain control. It also has potent antiinflammatory action. You should have significant pain relief within about one hour. Toradol is not addicting and is non-sedating. It does not interfere with driving or work. Call or return if you develop itching, hives, shortness of breath, or rash. FOLLOW-UP CARE: If you have been referred to a physician for follow-up care, call the physicians office for an appointment as you were instructed or within the next two days. If you experience worsening or a significant change in your symptoms, notify the physician immediately or return to the Emergency Department at any time for re-evaluation. Prescriptions: Cyclobenzaprine HCl [Flexeril 10 mg Tablet] 10 mg PO TIDP PRN #15 tab PRN Reason: Forms: Return to Work
[2018-10-10 16:00] VITALS: BP 113/72
== END 2018-10-10 16:00 | disposition home or self-care (01) ==
LOC: ER 13:57
DX: M54.41 Lumbago with sciatica, right side (principal); G89.29 Other chronic pain; F17.210 Nicotine dependence, cigarettes, uncomplicated; I10 Essential (primary) hypertension; Z85.828 Personal history of other malignant neoplasm of skin; Z88.5 Allergy status to narcotic agent
CPT/HCPCS: 99283; 96372; J1885

== ENCOUNTER 2018-11-02 09:15 | Inpatient (IN) | payer SELFPAY ==
[2018-11-02] MEDS ORDERED: VANCOMYCIN HCL INJ 1000 MG VIAL IV ONE (10:20)
[2018-11-02] MEDS ORDERED: KETOROLAC TROMETHAMINE INJ/PF 30 MG/1 ML SDV IV ONE (10:21)
[2018-11-02] MEDS ORDERED: DIPH/PERTUSS(ACELL)/TETANUS VAC/PF 0.5 ML SYR (>=10YO) IM ONE (10:22)
--- NOTE | 2018-11-02 10:22 | ER Document Report ---
ED Medical Screen (RME) - General Chief Complaint: Arm Pain Stated Complaint: ARM INJURY Time Seen by Provider: 11/02/18 10:16 TRAVEL OUTSIDE OF THE [place] IN LAST 30 DAYS: No - HPI Notes: 11/02/18 10:21 Patient is a 38-year-old male that presents to the emergency department for chief complaint of right arm injury and infection. On Monday patient was carrying daughters on his right shoulder supporting him with his right arm. He states the wind blew and the gutters began to fall he twisted and caught them with his right arm and felt something poke his right upper extremity. Since then he has had increased pain, swelling and redness to his right arm. He denies fevers. He denies IV drug use.. ROS: GENERAL: Denies fever of chills CV: Denies chest pain PHYSICAL EXAMINATION: GENERAL: Well-appearing, well-nourished and in no acute distress. HEAD: Atraumatic, normocephalic. EYES: Pupils equal round extraocular movements intact, conjunctiva are normal. ENT: Nares patent NECK: Normal range of motion LUNGS: No respiratory distress Musculoskeletal: Normal range of motion NEUROLOGICAL: Normal speech, normal gait. PSYCH: Normal mood, normal affect. MDM: Patient seen and examined for rapid initial assessment. Vital signs reviewed. A comprehensive ED assessment and evaluation of the patient, analysis of test results and completion of the medical decision making process will be conducted by additional ED providers. - Related Data Allergies/Adverse Reactions: tramadol Allergy (Verified 10/10/18 13:59) Past Medical History - Past Medical History Cardiac Medical History: Reports: Hx Hypertension Renal/ Medical History: Denies: Hx Peritoneal Dialysis Malignancy Medical History: Reports Hx Skin Cancer Musculoskeltal Medical History: Reports Hx Arthritis, Reports Hx Musculoskeletal Deformity - Degenerative disc disease, Reports Hx Musculoskeletal Trauma - AC separation Past Surgical History: Reports: Other - Removal of skin cancer - Immunizations Immunizations up to date: No Hx Diphtheria, Pertussis, Tetanus Vaccination: No Physical Exam - Vital signs Vitals: Temp Pulse Resp BP Pulse Ox 98.2 F 91 18 135/87 H 98 11/02/18 09:25 11/02/18 09:25 11/02/18 09:25 11/02/18 09:25 11/02/18 09:25 Course - Vital Signs Vital signs: Temp Pulse Resp BP Pulse Ox 98.2 F 91 18 135/87 H 98 11/02/18 09:25 11/02/18 09:25 11/02/18 09:25 11/02/18 09:25 11/02/18 09:25
[2018-11-02 11:02] LABS: ABSOLUTE EOSINOPHILS # (AUTO) 0.3 10^3/uL (0.0-0.6); ABSOLUTE MONOCYTES (AUTO) 1.5 10^3/uL (0.1-1.4); ABSOLUTE NEUT (AUTO) 10.6 10^3/uL (1.7-8.2); BASOPHILS % (AUTO) 0.2 % (0-2); EOSINOPHILS % (AUTO) 1.6 % (0-6); HEMATOCRIT 41.7 % (37.9-51.0); HEMOGLOBIN 14.1 g/dL (13.5-17.0); LYMPHOCYTES % (AUTO) 28.9 % (13-45); MEAN CORPUSCULAR HEMOGLOBIN 29.1 pg (27.0-33.4); MEAN CORPUSCULAR HGB CONC 33.7 g/dL (32.0-36.0); MEAN CORPUSCULAR VOLUME 86 fl (80-97); MONOCYTES % (AUTO) 8.7 % (3-13); PLATELET COUNT 338 10^3/uL (150-450); RED BLOOD COUNT 4.84 10^6/uL (4.35-5.55); SEGMENTED NEUTROPHILS % (AUTO) 60.6 % (42-78); TOTAL CELLS COUNTED % (AUTO) 100 %; WHITE BLOOD COUNT 17.5 10^3/uL (4.0-10.5)
[2018-11-02] MEDS ORDERED: ONDANSETRON HCL INJ/PF 4 MG/2 ML SDV ONE (11:03)
[2018-11-02] MEDS ORDERED: METOCLOPRAMIDE HCL INJ/PF 10 MG/2 ML SDV ONE (11:03)
[2018-11-02] MEDS ORDERED: SUCCINYLCHOLINE CHLORIDE INJ 200 MG/10 ML VIAL ONE (11:03)
--- NOTE | 2018-11-02 11:04 | ER Document Report ---
ED Extremity Problem, Upper - General Chief Complaint: Arm Pain Stated Complaint: ARM INJURY Time Seen by Provider: 11/02/18 10:16 Notes: Chief complaint: Right elbow swelling History of complain:( obtained from----patient)Patient is a 38-year-old male that presents to the emergency department for chief complaint of right arm injury and infection. On Monday patient was carrying daughters on his right shoulder supporting him with his right arm. He states the wind blew and the gutters began to fall he twisted and caught them with his right arm and felt something poke his right upper extremity. Since then he has had increased pain, swelling and redness to his right arm. He denies fevers. He denies IV drug use.. Onset: 2 days Duration: Gradual Severity: Moderate to severe Quality: Sharp Context: Puncture wound Exacerbating factor and relieving factors: Any movement of the arm REVIEW OF SYSTEMS: CONSTITUTIONAL : Denies fever, chills, or sweats. Denies recent illness. EENT: Denies eye, ear, throat, or mouth pain or symptoms. Denies nasal or sinus congestion or discharge. Denies throat, tongue, or mouth swelling or difficulty swallowing. CARDIOVASCULAR: Denies chest pain. Denies palpitations or racing or irregular heart beat. Denies ankle edema. RESPIRATORY: Denies cough, cold, or chest congestion. Denies shortness of breath, difficulty breathing, or wheezing. GASTROINTESTINAL: Denies distention. Denies nausea, vomiting, or diarrhea. Denies blood in vomitus, stools, or per rectum. Denies black, tarry stools. Denies constipation. GENITOURINARY: Denies difficulty urinating, painful urination, burning, frequency, blood in urine, or discharge. FEMALE GENITOURINARY: Denies vaginal bleeding, heavy or abnormal periods, irregular periods. Denies vaginal discharge or odor. MUSCULOSKELETAL: Denies back or neck pain or stiffness. Denies joint pain or swelling. SKIN: Denies rash, lesions or sores. HEMATOLOGIC : Denies easy bruising or bleeding. LYMPHATIC: Denies swollen, enlarged glands. NEUROLOGICAL: Denies confusion or altered mental status. Denies passing out or loss of consciousness. Denies dizziness or lightheadedness. Denies headache. Denies weakness or paralysis or loss of use of either side. Denies problems with gait or speech. Denies sensory loss, numbness, or tingling. Denies seizures. PSYCHIATRIC: Denies anxiety or stress. Denies depression, suicidal ideation, or homicidal ideation. ALL OTHER SYSTEMS REVIEWED AND NEGATIVE. PHYSICAL EXAMINATION: GENERAL: Well-appearing, well-nourished and in no acute distress. HEAD: Atraumatic, normocephalic. EYES: Pupils equal round and reactive to light, extraocular movements intact, conjunctiva are normal. ENT: Nares patent, oropharynx clear without exudates. Moist mucous membranes. Facial rosacea are noted NECK: Normal range of motion, supple without lymphadenopathy LUNGS: Breath sounds clear to auscultation bilaterally and equal. No wheezes rales or rhonchi. HEART: Regular rate and rhythm without murmurs ABDOMEN: Soft, nontender, nondistended abdomen. No guarding, no rebound. No masses appreciated. Examination of genitals-deferred Musculoskeletal: Right elbow-cubital fossa has a indurated deep erythematous swelling noted which is about 3 x 3 cm. It is not fluctuant. Surrounding ent emiliano elbow shows swelling, erythema is involving the entire elbow and extending towards the distal arm and spreading towards the proximal forearm. Which is very warm and tender to touch. NEUROLOGICAL: Cranial nerves grossly intact. Normal speech, normal gait. Normal sensory, motor exams PSYCH: Normal mood, normal affect. SKIN: Warm, Dry, normal turgor, no rashes or lesions noted. Dictation was performed using [email or web address] voice recognition software TRAVEL OUTSIDE OF THE [place] IN LAST 30 DAYS: No - HPI Notes: Dictated - Related Data Allergies/Adverse Reactions: tramadol Allergy (Verified 10/10/18 13:59) Past Medical History - Social History Smoking Status: Current Every Day Smoker Chew tobacco use (# tins/day): No Frequency of alcohol use: None Drug Abuse: None Family History: Arthritis, CAD, COPD, CVA, Hyperlipidemia, Malignancy. denies: Hypertension, Thyroid Disfunction Patient has suicidal ideation: No Patient has homicidal ideation: No - Past Medical History Cardiac Medical History: Reports: Hx Hypertension Renal/ Medical History: Denies: Hx Peritoneal Dialysis Malignancy Medical History: Reports Hx Skin Cancer Musculoskeletal Medical History: Reports Hx Arthritis, Reports Hx Musculoskeletal Deformity - Degenerative disc disease, Reports Hx Musculoskeletal Trauma - AC separation Past Surgical History: Reports: Other - Removal of skin cancer - Immunizations Immunizations up to date: No Hx Diphtheria, Pertussis, Tetanus Vaccination: No Review of Systems - Review of Systems Notes: Dictated Physical Exam - Vital signs Vitals: Temp Pulse Resp BP Pulse Ox 98.2 F 91 18 135/87 H 98 11/02/18 09:25 11/02/18 09:25 11/02/18 09:25 11/02/18 09:25 11/02/18 09:25 - Notes Notes: Dictated Course - Re-evaluation Re-evalutation: 11/02/18 11:50 He was his case was discussed with hospital service and currently being admitted - Vital Signs Vital signs: Temp Pulse Resp BP Pulse Ox 98.2 F 91 18 135/87 H 98 11/02/18 09:25 11/02/18 09:25 11/02/18 09:25 11/02/18 09:25 11/02/18 09:25 - Laboratory Result Diagrams: 11/02/18 10:35 11/02/18 10:35 Laboratory results interpreted by me: 11/02/18 11/02/18 10:35 10:35 WBC 17.5 H Absolute Neutrophils 10.6 H Absolute Lymphocytes 5.0 H Absolute Monocytes 1.5 H C-Reactive Protein 42.3 H Discharge - Discharge Clinical Impression: Cellulitis of right elbow Condition: Fair Disposition: ADMITTED INPATIENT Admitting Provider: Hospitalist Unit Admitted: Medical Floor
[2018-11-02] MEDS ORDERED: PIPERACILLIN/TAZOBACTAM 3.375 GM VIAL IV ONE (11:07)
--- NOTE | 2018-11-02 11:16 | RADIOLOGY REPORT (SQ) ---
EXAM DESCRIPTION: ELBOW RIGHT AP/LAT COMPLETED DATE/TIME: 11/02/2018 11:04 am REASON FOR STUDY: pain, foreign body COMPARISON: None. NUMBER OF VIEWS: Two views. TECHNIQUE: AP and lateral radiographic images acquired of the right elbow. LIMITATIONS: None. FINDINGS: MINERALIZATION: Normal. BONES: No acute fracture or dislocation. No worrisome bone lesions. JOINT: No effusion. SOFT TISSUES: Diffuse soft tissue swelling. No foreign body. OTHER: No other significant finding. IMPRESSION: No fracture or dislocation of the right elbow. No radiopaque foreign body identified. Diffuse soft tissue swelling about the elbow. TECHNICAL DOCUMENTATION: JOB ID: [id number] [email or web address]- All Rights Reserved Reading location - IP/workstation name: [email or web address]
[2018-11-02 11:26] LABS: ANION GAP 10 (5-19); BLOOD UREA NITROGEN 15 mg/dL (7-20); C-REACTIVE PROTEIN 42.3 mg/L (<10.0); CALCIUM 9.4 mg/dL (8.4-10.2); CARBON DIOXIDE 28 mmol/L (22-30); CHLORIDE 100 mmol/L (98-107); GLUCOSE 99 mg/dL (75-110); POTASSIUM 4.8 mmol/L (3.6-5.0); SODIUM 137.7 mmol/L (137-145)
[2018-11-02 11:44] LABS: ERYTHROCYTE SEDIMENTATION RATE 10 mm/hr (0-15)
[2018-11-02] MEDS ORDERED: CEFAZOLIN 2 GM/D5W RTU 2 GM/50 ML RTUPB IV SCH (12:00)
[2018-11-02] MEDS ORDERED: ACETAMINOPHEN 650 MG SUPP.RECT PR PRN (12:29)
[2018-11-02] MEDS ORDERED: ONDANSETRON HCL INJ/PF 4 MG/2 ML SDV IV PRN ×2 (12:29→22:30)
[2018-11-02] MEDS ORDERED: LORAZEPAM 1 MG TABLET PO PRN (12:37)
[2018-11-02] MEDS: NORMAL SALINE 1000 ML 1,000 ML IV PRN ×2 (12:45→20:17)
[2018-11-02] MEDS ORDERED: VANCOMYCIN HCL 0 MG in DEXTROSE 5%-WATER 250 ML IV NR (13:15)
--- NOTE | 2018-11-02 13:23 | PDOC H&P ---
History of Present Illness Admission Date/PCP: 11/02/18 12:41 NO LOCALMD Patient complains of: Right elbow pain and swelling History of Present Illness: MYLA PAGAN is a 38 year old male with history of hypertension, chronic smoker came to the emergency room with complaints of swelling around the right elbow associated with severe pain and redness for the last 48 hours. 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 Denies any history of fevers denies any IV drug use. Denies any nausea or vomitings diarrhea. Pain scale according to him is intense 10 x 10. In the emergency room x-ray was done it shows diffuse soft tissue swelling around the right elbow medical consult was called for further management. I went to see the patient in the emergency room he was in severe pain according to him pain scale is 10 x 10. And he is holding the right arm bent at the elbow. Other than the pain he does denies any other problems. Past Medical History Cardiac Medical History: Reports: Hypertension Malignancy Medical History: Reports: Skin Cancer Musculoskeltal Medical History: Reports: Arthritis Past Surgical History Past Surgical History: Reports: Other - Removal of skin cancer Social History Smoking Status: Current Every Day Smoker Frequency of Alcohol Use: None Drugs: None - Advance Directive Resuscitation Status: Full Code Family History Family History: Arthritis, CAD, COPD, CVA, Hyperlipidemia, Malignancy. denies: Hypertension, Thyroid Disfunction Parental Family History Reviewed: Yes Children Family History Reviewed: Yes Sibling(s) Family History Reviewed.: Yes Medication/Allergy Home Medications: No Home Medications 11/02/18 Allergies/Adverse Reactions: tramadol Allergy (Verified 10/10/18 13:59) Review of Systems Constitutional: ABSENT: fatigue, fever(s), night sweats, weakness Eyes: ABSENT: visual disturbances Ears: ABSENT: hearing changes Respiratory: ABSENT: dyspnea, hemoptysis Gastrointestinal: ABSENT: diarrhea, nausea, vomiting Genitourinary: ABSENT: dysuria, hematuria, nocturia Integumentary: PRESENT: erythema, other - Redness and swelling around the right elbow Neurological: ABSENT: abnormal movements, abnormal speech, focal weakness, frequent falls, lack of coordination Psychiatric: ABSENT: anxiety, depression, hallucinations Endocrine: ABSENT: heat intolerance Physical Exam Vital Signs: Temp Pulse Resp BP Pulse Ox 98.2 F 91 18 135/87 H 98 11/02/18 09:25 11/02/18 09:25 11/02/18 09:25 11/02/18 09:25 11/02/18 09:25 Intake & Output 11/01/18 11/02/18 11/03/18 06:59 06:59 06:59 Weight 71.8 kg General appearance: PRESENT: mild distress Head exam: PRESENT: atraumatic Eye exam: PRESENT: PERRLA Mouth exam: PRESENT: moist, tongue midline Neck exam: ABSENT: carotid bruit, JVD, lymphadenopathy, thyromegaly Respiratory exam: PRESENT: clear to auscultation elvi. ABSENT: rales, rhonchi, wheezes Cardiovascular exam: PRESENT: RRR. ABSENT: diastolic murmur, rubs, systolic murmur Vascular exam: PRESENT: normal capillary refill GI/Abdominal exam: PRESENT: normal bowel sounds, soft. ABSENT: distended, guarding, mass, organolmegaly, rebound, tenderness Neurological exam: PRESENT: alert, awake, oriented to person, oriented to place, oriented to time, oriented to situation, CN II-XII grossly intact. ABSENT: motor sensory deficit Skin exam: PRESENT: other - Swelling redness increased warmth around the right e lbow. I have a concern about there is a possibility of compartmental syndrome. Results Laboratory Results: 11/02/18 10:35 11/02/18 10:35 11/02/18 11/02/18 11/02/18 10:35 10:35 12:14 WBC 17.5 H RBC 4.84 Hgb 14.1 Hct 41.7 MCV 86 MCH 29.1 MCHC 33.7 RDW 13.0 Plt Count 338 Seg Neutrophils % 60.6 Lymphocytes % 28.9 Monocytes % 8.7 Eosinophils % 1.6 Basophils % 0.2 Absolute Neutrophils 10.6 H Absolute Lymphocytes 5.0 H Absolute Monocytes 1.5 H Absolute Eosinophils 0.3 Absolute Basophils 0.0 Sodium 137.7 Potassium 4.8 Chloride 100 Carbon Dioxide 28 Anion Gap 10 BUN 15 Creatinine 0.78 Est GFR ( Amer) > 60 Est GFR (Non-Af Amer) > 60 Glucose 99 Lactic Acid 1.0 Calcium 9.4 C-Reactive Protein 42.3 H 11/02/18 10:35 Creatine Kinase < 20 L Impressions: Elbow X-Ray 11/02/18 10:20 IMPRESSION: No fracture or dislocation of the right elbow. No radiopaque foreign body identified. Diffuse soft tissue swelling about the elbow. Assessment & Plan - Diagnosis (1) Cellulitis of right elbow Is this a current diagnosis for this admission?: Yes Plan: 11/02/2018 plan is to put him in a medical floor. Started on IV Zosyn 3.37 g every 6 hours and vancomycin 1 g every 8 hours IV also he was started on Dilaudid 2 mg every 3 hours as needed for pain, Ativan 1 mg p.o. every 6 hours as needed for anxiety, placed on K pad. Urine drug screen was requested. Blood cultures were sent urine culture was sent. CT of the right hip upper extremity was requested. To rule out any fasciitis evidence of any compartmental syn drome. Consultation with the surgeon was requested as a stat request. Started on IV fluids. Lactic acid levels are pending. I am going to repeat the lactic acid again this afternoon. He is going to be admitted as inpatient. Pt Does not know when was last time he had a tetanus vaccine he got a vaccination here in the ER today. (2) Smoker Is this a current diagnosis for this admission?: Yes Plan: 11/02/2018-patient is given the history of smoking for more than 20 years smokes half pack to 1 pack/day. Smoking counseling was provided for more than 20 minutes. Strongly advised to quit smoking. He is going to be placed on nicotine patch. (3) Hypertension Is this a current diagnosis for this admission?: Yes Plan: 11/02/2018-patient is giving history of hypertension but is not on any home medications. Pressure today is 135/87. I am going to closely monitor his blood pressure. - Time Time Spent: 50 to 70 Minutes Smoking Cessation Education: over 10 minutes Medications reviewed and adjusted accordingly: Yes Anticipated discharge: Home
[2018-11-02] MEDS: VANCOMYCIN HCL 1,000 MG in DEXTROSE 5%-WATER 250 ML IV SCH ×2 (15:06→22:18)
[2018-11-02] MEDS: NICOTINE 21 MG/24 HR PATCH.TD24 TD PRN (15:06)
[2018-11-02] MEDS: HYDROMORPHONE HCL INJ/PF 2 MG/ML AMPULE IV SCH ×2 (16:47→20:16)
[2018-11-02 17:27] LABS: URINE BARBITURATES SCREEN NEGATIVE; URINE BENZODIAZEPINES SCREEN NEGATIVE; URINE COCAINE SCREEN NEGATIVE; URINE MARIJUANA (THC) SCREEN NEGATIVE; URINE METHADONE SCREEN NEGATIVE; URINE PHENCYCLIDINE SCREEN NEGATIVE
--- NOTE | 2018-11-02 17:35 | RADIOLOGY REPORT (SQ) ---
EXAM DESCRIPTION: CT RT UPPER EXTREMITY WITH COMPLETED DATE/TIME: 11/02/2018 5:10 pm REASON FOR STUDY: cellulitis COMPARISON: None. TECHNIQUE: Postcontrast axial imaging performed through the right shoulder with reformatted coronal and sagittal imaging windowed for bone and soft tissues. Images saved to PACS. 3D IMAGING: Were 3D images as MIP, SSD, or volume rendering performed at the work station? No All CT scanners at this facility use dose modulation, iterative reconstruction, and/or weight based d osing when appropriate to reduce radiation dose to as low as reasonably achievable (ALARA). [facility]: Dose Right [facility]: CareDose [facility]: Dose Right [facility]: Teradose 4D [facility]: [employer] CONTRAST TYPE AND DOSE: contrast/concentration: Isovue 350.00 mg/ml; Total Contrast Delivered: 50.0 ml; Total Saline Delivered: 60.0 ml RENAL FUNCTION: BUN 15 creatinine 0.78 LIMITATIONS: None. RADIATION DOSE: CT Rad equipment meets quality standard of care and radiation dose reduction techniq ues were employed. CTDIvol: 2.6 mGy. DLP: 82 mGy-cm.mGy. FINDINGS: SOFT TISSUES: There is cutaneous and subcutaneous edema involving the anterior aspect of t he proximal forearm and extending into the upper arm. On image 57 series 4 there is a small fluid co llection measuring about 15 mm in largest diameter in the subcutaneous tissues anteriorly. This is s een on image 44 series 303 and image 36 series 302. BONES: No fracture dislocation. No osseous lesion. MINERALIZATION: Normal. ENHANCEMENT: No abnormal enhancement. OTHER: No other significant finding. IMPRESSION: Cellulitis. Cannot exclude a small abscess in the proximal anterior aspect of the upper arm. TECHNICAL DOCUMENTATION: JOB ID: [id number] Quality ID # [id number]: Final reports with documentation of one or more dose reduction techniques (e.g., Au tomated exposure control, adjustment of the mA and/or kV according to patient size, use of iterative reconstruction technique) 2010 [employer]- All Rights Reserved Reading location - IP/workstation name: [email or web address]
[2018-11-02] MEDS ORDERED: PIPERACILLIN/TAZOBACTAM 3.375 GM VIAL IV SCH (18:00)
[2018-11-02] MEDS: PIPERACILLIN SODIUM/TAZOBACTAM 3.375 GM in NORMAL SALINE 100 ML IV SCH (20:15)
--- NOTE | 2018-11-02 21:58 | PDOC CONSULTATION ---
Consultation Consult Date: 11/02/18 History of Present Illness Admission Date/PCP: 11/02/18 12:41 NO LOCALMD History of Present Illness: MYLA PAGAN is a 38 year old male presents with pain and swelling rt upper arm no fever chills states he was stuck with a viviana staple denies any use of iv drugs. Past Medical History Cardiac Medical History: Reports: Hypertension Malignancy Medical History: Reports: Skin Cancer Musculoskeltal Medical History: Reports: Arthritis Past Surgical History Past Surgical History: Reports: Other - Removal of skin cancer Social History Smoking Status: Current Every Day Smoker Cigarettes Packs Per Day: 2.5 Number of Years Smokin Last Time Smoked: 11/02/18 Frequency of Alcohol Use: None Hx Recreational Drug Use: No Drugs: None - Advance Directive Resuscitation Status: Full Code Family History Family History: Arthritis, CAD, COPD, CVA, Hyperlipidemia, Malignancy. denies: Hypertension, Thyroid Disfunction Parental Family History Reviewed: No Children Family History Reviewed: Unknown Sibling(s) Family History Reviewed.: Unknown Medication/Allergy Home Medications: No Home Medications 11/02/18 Allergies/Adverse Reactions: tramadol Allergy (Verified 10/10/18 13:59) Physical Exam Vital Signs: Temp Pulse Resp BP Pulse Ox 98 F 91 20 128/81 H 97 11/02/18 20:50 11/02/18 20:50 11/02/18 20:50 11/02/18 20:50 11/02/18 20:50 Intake & Output 11/01/18 11/02/18 11/03/18 06:59 06:59 06:59 Intake Total 815 Balance 815 Weight 70 kg General appearance: PRESENT: cooperative, mild distress Head exam: PRESENT: atraumatic, normocephalic Eye exam: PRESENT: EOMI, PERRLA Neck exam: PRESENT: full ROM Respiratory exam: PRESENT: clear to auscultation elvi Cardiovascular exam: PRESENT: RRR Pulses: PRESENT: normal radial pulses GI/Abdominal exam: PRESENT: soft Rectal exam: PRESENT: deferred Extremities exam: PRESENT: other - rt upper arm swollen, with 3cm swelling in antecubital fossa c/w abscess min skin necrosis significant swelling in antecubital fossa Results Laboratory Results: 11/02/18 10:35 11/02/18 10:35 11/02/18 11/02/18 11/02/18 10:35 10:35 12:14 WBC 17.5 H RBC 4.84 Hgb 14.1 Hct 41.7 MCV 86 MCH 29.1 MCHC 33.7 RDW 13.0 Plt Count 338 Seg Neutrophils % 60.6 Lymphocytes % 28.9 Monocytes % 8.7 Eosinophils % 1.6 Basophils % 0.2 Absolute Neutrophils 10.6 H Absolute Lymphocytes 5.0 H Absolute Monocytes 1.5 H Absolute Eosinophils 0.3 Absolute Basophils 0.0 Sodium 137.7 Potassium 4.8 Chloride 100 Carbon Dioxide 28 Anion Gap 10 BUN 15 Creatinine 0.78 Est GFR ( Amer) > 60 Est GFR (Non-Af Amer) > 60 Glucose 99 Lactic Acid 1.0 Calcium 9.4 C-Reactive Protein 42.3 H 11/02/18 18:47 WBC RBC Hgb Hct MCV MCH MCHC RDW Plt Count Seg Neutrophils % Lymphocytes % Monocytes % Eosinophils % Basophils % Absolute Neutrophils Absolute Lymphocytes Absolute Monocytes Absolute Eosinophils Absolute Basophils Sodium Potassium Chloride Carbon Dioxide Anion Gap BUN Creatinine Est GFR ( Amer) Est GFR (Non-Af Amer) Glucose Lactic Acid 1.0 Calcium C-Reactive Protein 11/02/18 10:35 Creatine Kinase < 20 L Impressions: Upper Extremity CT 11/02/18 00:00 IMPRESSION: Cellulitis. Cannot exclude a small abscess in the proximal anterior aspect of the upper arm. Elbow X-Ray 11/02/18 10:20 IMPRESSION: No fracture or dislocation of the right elbow. No radiopaque foreign body identified. Diffuse soft tissue swelling about the elbow. Assessment & Plan - Plan Summary Plan Summary: rt arm abscess in antecubital fossa no evidence of compartment syndrome however concerned about deep extent of abscess and spread plan on urgent incision and drainage/.
[2018-11-02] MEDS: FAMOTIDINE INJ/PF 20 MG/2 ML SDV IV SCH (22:11)
[2018-11-02] MEDS: ZOLPIDEM TARTRATE 5 MG TABLET PO SCH (22:11)
[2018-11-02] MEDS ORDERED: MIDAZOLAM 2 MG/2 ML INJ ONE (22:12)
[2018-11-02] MEDS ORDERED: FENTANYL CITRATE INJ/PF 100 MCG/2 ML AMPUL ONE (22:12)
[2018-11-02] MEDS ORDERED: BUPIVACAINE HCL 0.5%-EPI 1:200000 INJ/PF 30 ML VIAL ONE (22:34)
[2018-11-02] MEDS ORDERED: BUPIVACAINE HCL 0.25 % INJ/PF (2.5 MG/1 ML) 30 ML VIAL ONE (22:34)
[2018-11-02] MEDS ORDERED: DEXMEDETOMIDINE INJ 80 MCG/20 ML VIAL IV ONE (23:14)
[2018-11-02] MEDS ORDERED: FENTANYL CITRATE INJ/PF 100 MCG/2 ML AMPUL IV PRN ×2 (23:31)
[2018-11-02] MEDS ORDERED: PROMETHAZINE HCL INJ 25 MG/1 ML VIAL IV PRN (23:31)
--- NOTE | 2018-11-02 23:54 | Operative Report ---
Operative Report DATE OF SURGERY: 11/02/18 PREOPERATIVE DIAGNOSIS: right arm abscess POSTOPERATIVE DIAGNOSIS: right arm abscess OPERATION: incision and drainage of right arm abscess SURGEON: CAIN BALLARD ANESTHESIA: GA COMPLICATIONS: none ESTIMATED BLOOD LOSS: 5cc INTRAOPERATIVE FINDINGS: 20cc of pus sent for cult PROCEDURE: see dictation
[2018-11-03] MEDS ORDERED: FENTANYL CITRATE INJ/PF 100 MCG/2 ML AMPUL ONE (00:20)
[2018-11-03] MEDS: FENTANYL CITRATE INJ/PF 100 MCG/2 ML AMPUL IV PRN ×2 (00:22→00:32)
[2018-11-03] MEDS: PIPERACILLIN SODIUM/TAZOBACTAM 3.375 GM in NORMAL SALINE 100 ML IV SCH ×4 (01:40→17:34)
[2018-11-03] MEDS: HYDROMORPHONE HCL INJ/PF 2 MG/ML AMPULE IV PRN ×7 (01:40→20:39)
[2018-11-03] MEDS: VANCOMYCIN HCL 1,000 MG in DEXTROSE 5%-WATER 250 ML IV SCH ×2 (05:14→14:34)
[2018-11-03 06:03] LABS: ABSOLUTE BASOPHILS # (AUTO) 0.1 10^3/uL (0.0-0.2); ABSOLUTE EOSINOPHILS # (AUTO) 0.4 10^3/uL (0.0-0.6); ABSOLUTE LYMPHOCYTES (AUTO) 4.5 10^3/uL (0.5-4.7); ABSOLUTE MONOCYTES (AUTO) 1.1 10^3/uL (0.1-1.4); ABSOLUTE NEUT (AUTO) 10.1 10^3/uL (1.7-8.2); BASOPHILS % (AUTO) 0.9 % (0-2); EOSINOPHILS % (AUTO) 2.6 % (0-6); HEMATOCRIT 35.6 % (37.9-51.0); LYMPHOCYTES % (AUTO) 27.4 % (13-45); MEAN CORPUSCULAR HEMOGLOBIN 29.1 pg (27.0-33.4); MEAN CORPUSCULAR HGB CONC 33.5 g/dL (32.0-36.0); MEAN CORPUSCULAR VOLUME 87 fl (80-97); PLATELET COUNT 223 10^3/uL (150-450); RED BLOOD COUNT 4.11 10^6/uL (4.35-5.55); RED CELL DISTRIBUTION WIDTH 13.1 % (11.5-14.0); SEGMENTED NEUTROPHILS % (AUTO) 62.1 % (42-78); TOTAL CELLS COUNTED % (AUTO) 100 %; WHITE BLOOD COUNT 16.3 10^3/uL (4.0-10.5)
[2018-11-03 06:21] LABS: ALANINE AMINOTRANSFERASE 43 U/L (21-72); ALKALINE PHOSPHATASE 56 U/L (38-126); ASPARTATE AMINO TRANSFERASE 17 U/L (17-59); BILIRUBIN,DIRECT 0.2 mg/dL (0.0-0.4); BILIRUBIN,TOTAL 0.2 mg/dL (0.2-1.3); BLOOD UREA NITROGEN 13 mg/dL (7-20); CALCIUM 8.4 mg/dL (8.4-10.2); GLUCOSE 123 mg/dL (75-110); POTASSIUM 4.2 mmol/L (3.6-5.0); TOTAL PROTEIN 5.6 g/dL (6.3-8.2)
[2018-11-03 06:28] LABS: CARBON DIOXIDE 28 mmol/L (22-30); CHLORIDE 107 mmol/L (98-107); SODIUM 138.8 mmol/L (137-145)
[2018-11-03 06:34] LABS: ANION GAP 4 (5-19)
[2018-11-03] MEDS: NORMAL SALINE 1000 ML 1,000 ML IV PRN (08:37)
--- NOTE | 2018-11-03 08:49 | PDOC PROGRESS REPORT ---
Subjective Progress Note for:: 11/03/18 Subjective:: Patient went for IND of the right antecubital fossa abscess. No acute events in the last 24 hours. He is complaining of right hand was swollen. No erythema. No pain. Probably secondary to swelling around the right elbow. I advised him to elevate the arm for drainage. Patient's T-max is 98.3. Patient denies any complaints. His amphetamine levels in the urine came back very high but is saying friend gave him a 1 pill of Adderall because of the pain prior to come to the hospital. Reason For Visit: CELLULITIS Physical Exam Vital Signs: Temp Pulse Resp BP Pulse Ox 98.3 F 95 14 130/71 H 95 11/03/18 04:06 11/03/18 04:06 11/03/18 04:06 11/03/18 04:06 11/03/18 04:06 Intake & Output 11/02/18 11/03/18 11/04/18 06:59 06:59 06:59 Intake Total 2425 925 Output Total 5 Balance 2420 925 Weight 70 kg General appearance: PRESENT: mild distress Head exam: PRESENT: atraumatic Eye exam: PRESENT: PERRLA Mouth exam: PRESENT: moist, tongue midline Neck exam: ABSENT: carotid bruit, JVD, lymphadenopathy, thyromegaly Cardiovascular exam: PRESENT: RRR. ABSENT: diastolic murmur, rubs, systolic murmur GI/Abdominal exam: PRESENT: normal bowel sounds, soft. ABSENT: distended, guarding, mass, organolmegaly, rebound, tenderness Extremities exam: PRESENT: full ROM. ABSENT: calf tenderness, clubbing, pedal edema Musculoskeletal exam: PRESENT: other - There is a bandage around the right elbow unable to see the incision site. Right hand was slightly swollen. radial pulses palpable. Neurological exam: PRESENT: alert Psychiatric exam: PRESENT: appropriate affect, normal mood. ABSENT: homicidal ideation, suicidal ideation Results Laboratory Results: 11/03/18 05:27 11/03/18 05:27 11/02/18 11/02/18 11/02/18 10:35 10:35 12:14 WBC 17.5 H RBC 4.84 Hgb 14.1 Hct 41.7 MCV 86 MCH 29.1 MCHC 33.7 RDW 13.0 Plt Count 338 Seg Neutrophils % 60.6 Lymphocytes % 28.9 Monocytes % 8.7 Eosinophils % 1.6 Basophils % 0.2 Absolute Neutrophils 10.6 H Absolute Lymphocytes 5.0 H Absolute Monocytes 1.5 H Absolute Eosinophils 0.3 Absolute Basophils 0.0 Sodium 137.7 Potassium 4.8 Chloride 100 Carbon Dioxide 28 Anion Gap 10 BUN 15 Creatinine 0.78 Est GFR ( Amer) > 60 Est GFR (Non-Af Amer) > 60 Glucose 99 Lactic Acid 1.0 Calcium 9.4 Magnesium Total Bilirubin AST ALT Alkaline Phosphatase C-Reactive Protein 42.3 H Total Protein Albumin 11/02/18 11/03/18 11/03/18 18:47 05:27 05:27 WBC 16.3 H RBC 4.11 L Hgb 12.0 L D Hct 35.6 L MCV 87 MCH 29.1 MCHC 33.5 RDW 13.1 Plt Count 223 Seg Neutrophils % 62.1 Lymphocytes % 27.4 Monocytes % 7.0 Eosinophils % 2.6 Basophils % 0.9 Absolute Neutrophils 10.1 H Absolute Lymphocytes 4.5 Absolute Monocytes 1.1 Absolute Eosinophils 0.4 Absolute Basophils 0.1 Sodium 138.8 Potassium 4.2 Chloride 107 Carbon Dioxide 28 Anion Gap 4 L BUN 13 Creatinine 0.83 Est GFR ( Amer) > 60 Est GFR (Non-Af Amer) > 60 Glucose 123 H Lactic Acid 1.0 Calcium 8.4 Magnesium 2.1 Total Bilirubin 0.2 AST 17 ALT 43 Alkaline Phosphatase 56 C-Reactive Protein Total Protein 5.6 L Albumin 3.0 L 11/02/18 10:35 Creatine Kinase < 20 L Impressions: Upper Extremity CT 11/02/18 00:00 IMPRESSION: Cellulitis. Cannot exclude a small abscess in the proximal anterior aspect of the upper arm. Elbow X-Ray 11/02/18 10:20 IMPRESSION: No fracture or dislocation of the right elbow. No radiopaque foreign body identified. Diffuse soft tissue swelling about the elbow. Assessment & Plan - Diagnosis (1) Cellulitis of right elbow Is this a current diagnosis for this admission?: Yes Plan: 11/02/2018 plan is to put him in a medical floor. Started on IV Zosyn 3.37 g every 6 hours and vancomycin 1 g every 8 hours IV also he was started on Dilaudid 2 mg every 3 hours as needed for pain, Ativan 1 mg p.o. every 6 hours as needed for anxiety, placed on K pad. Urine drug screen was requested. Blood cultures were sent urine culture was sent. CT of the right hip upper extremity was requested. To rule out any fasciitis evidence of any compartmental syndrome. Consultation with the surgeon was requested as a stat request. Started on IV fluids. Lactic acid levels are pending. I am going to repeat the lactic acid again this afternoon. He is going to be admitted as inpatient. Pt Does not know when was last time he had a tetanus vaccine he got a vaccination here in the ER today. 11/03/2018-patient went to the OR because of the 3 cm abscess in the right antecubital fossa. Dr. Valero to the I/D. Appreciate his help. Patient is on Zosyn and vancomycin. The wound cultures of blood cultures are pending. Patient is afebrile. WBC is also coming down it is 16,300 today. Plan is to co ntinue the present antibiotic therapy. (2) Smoker Is this a current diagnosis for this admission?: Yes Plan: 11/02/2018-patient is given the history of smoking for more than 20 years smokes half pack to 1 pack/day. Smoking counseling was provided for more than 20 minutes. Strongly advised to quit smoking. He is going to be placed on nicotine patch. 11/03/2018-patient is a chronic smoker with a history of smoking half pack to 1 pack/day for more than 20 years on nicotine patch daily. Smoking counseling was provided again for more than 10 minutes. (3) Hypertension Is this a current diagnosis for this admission?: Yes Plan: 11/02/2018-patient is giving history of hypertension but is not on any home medications. Pressure today is 135/87. I am going to closely monitor his blood pressure. 11/03/2018 patient blood pressure today is 130/71. Stable. Plan is to check the daily blood pressure measurements. - Time Time Spent with patient: 15-24 minutes Smoking Cessation Education: over 10 minutes Medications reviewed and adjusted accordingly: Yes Anticipated discharge: Home
[2018-11-03] MEDS: FAMOTIDINE INJ/PF 20 MG/2 ML SDV IV SCH ×2 (09:48→21:57)
[2018-11-03] MEDS: ENOXAPARIN SODIUM INJ 40 MG/0.4 ML DISP.SYRIN SUBCUT SCH (09:51)
[2018-11-03] MEDS ORDERED: VANCOMYCIN HCL INJ 1000 MG VIAL IV SCH (10:00)
[2018-11-03] MEDS ORDERED: IBUPROFEN 600 MG TABLET ONE (13:52)
[2018-11-03 14:10] LABS: VANCOMYCIN,TROUGH 9.1 ug/mL (5.0-20.0)
[2018-11-03] MEDS: NICOTINE 21 MG/24 HR PATCH.TD24 TD PRN (14:27)
--- NOTE | 2018-11-03 15:10 | PDOC PROGRESS REPORT ---
Subjective Progress Note for:: 11/03/18 Reason For Visit: CELLULITIS Physical Exam Vital Signs: Temp Pulse Resp BP Pulse Ox 98.0 F 74 18 115/69 100 11/03/18 12:06 11/03/18 12:06 11/03/18 12:06 11/03/18 12:06 11/03/18 12:06 Intake & Output 11/02/18 11/03/18 11/04/18 06:59 06:59 06:59 Intake Total 2775 1783 Output Total 5 Balance 2770 1783 Weight 70 kg Results Laboratory Results: 11/03/18 05:27 11/03/18 05:27 11/02/18 11/03/18 11/03/18 18:47 05:27 05:27 WBC 16.3 H RBC 4.11 L Hgb 12.0 L D Hct 35.6 L MCV 87 MCH 29.1 MCHC 33.5 RDW 13.1 Plt Count 223 Seg Neutrophils % 62.1 Lymphocytes % 27.4 Monocytes % 7.0 Eosinophils % 2.6 Basophils % 0.9 Absolute Neutrophils 10.1 H Absolute Lymphocytes 4.5 Absolute Monocytes 1.1 Absolute Eosinophils 0.4 Absolute Basophils 0.1 Sodium 138.8 Potassium 4.2 Chloride 107 Carbon Dioxide 28 Anion Gap 4 L BUN 13 Creatinine 0.83 Est GFR ( Amer) > 60 Est GFR (Non-Af Amer) > 60 Glucose 123 H Lactic Acid 1.0 Calcium 8.4 Magnesium 2.1 Total Bilirubin 0.2 AST 17 ALT 43 Alkaline Phosphatase 56 Total Protein 5.6 L Albumin 3.0 L 11/02/18 10:35 Creatine Kinase < 20 L Impressions: Upper Extremity CT 11/02/18 00:00 IMPRESSION: Cellulitis. Cannot exclude a small abscess in the proximal anterior aspect of the upper arm. Elbow X-Ray 11/02/18 10:20 IMPRESSION: No fracture or dislocation of the right elbow. No radiopaque foreign body identified. Diffuse soft tissue swelling about the elbow. Assessment & Plan - Plan Summary Plan Summary: This is a 38-year-old male with a right upper extremity abscess. He is status post incision and drainage. The patient reports that his pain is improving. Also his range of motion is improving. I have removed his dressing and examined the wound today. The patient still has some induration present. At this time I would recommend continuation of his antibiotics. I will reassess the wound tomorrow morning to ensure that no further exploration is necessary. Will follow.
--- NOTE | 2018-11-03 18:52 | OPERATIVE REPORT E ---
Operative Report NAME: MYLA PAGAN : 1980 AGE: 38Y DATE OF SURGERY: 11/02/2018 ROOM: 321 PREOPERATIVE DIAGNOSIS: RIGHT ANTECUBITAL FOSSA ABSCESS. POSTOPERATIVE DIAGNOSIS: RIGHT ANTECUBITAL FOSSA ABSCESS. OPERATION: Incision and drainage of right antecubital fossa abscess. SURGEON: CAIN BALLARD M.D. INDICATIONS FOR PROCEDURE: This is a 38-year-old male who presented with 2 days of swelling in his right arm. He indicated that he fell and was stuck by a viviana tack. There was no evidence of any puncture wound in his arm and he had some marked cellulitis over the antecubital fossa extending up to the deltoid muscle. He was, therefore, brought to the operating room for this procedure. PROCEDURE IN DETAIL: The patient was brought to the operating room awake, alert, in stable condition. He was placed on operating room table in the supine position, and given general anesthesia. The right arm and antecubital fossa was prepped and draped in the usual sterile fashion. After appropriate timeout a transverse incision was made directly over the abscess and we received approximately 20 mL of creamy yellow, purulent, thick pus that appeared consistent with MRSA. We dissected down through subcutaneous tissue to identify the basilic vein as well as the cephalic vein bifurcation. We preserved those, they did not appear to be clotted and dissected down to the biceps tendon, opened up that fascial plane and digitalized it to make sure that there is no deep abscess and then copiously irrigated the wound with normal saline and packed it with an iodoform gauze packing which completed the procedure. A sterile dressing was applied. The patient was awakened in the operating room, extubated, transferred to recovery in stable condition. No complications. The specimen is culture and sensitivity of the wound drainage. Estimated blood loss was less than 5 mL. Sponge and needle counts correct x2. DICTATING PHYSICIAN: CAIN BALLARD M.D. [id number] PHY#: [id number] ID: [id number] JOB#: [id number] ACCT: [id number] cc:CAIN BALLARD M.D. >
[2018-11-03] MEDS: ZOLPIDEM TARTRATE 5 MG TABLET PO SCH (21:58)
[2018-11-03] MEDS: VANCOMYCIN HCL 1,500 MG in DEXTROSE 5%-WATER 250 ML IV SCH (21:58)
[2018-11-04] MEDS: PIPERACILLIN SODIUM/TAZOBACTAM 3.375 GM in NORMAL SALINE 100 ML IV SCH ×5 (00:01→23:46)
[2018-11-04] MEDS: HYDROMORPHONE HCL INJ/PF 2 MG/ML AMPULE IV PRN ×6 (03:30→19:25)
[2018-11-04] MEDS: VANCOMYCIN HCL 1,500 MG in DEXTROSE 5%-WATER 250 ML IV SCH ×3 (05:00→21:55)
[2018-11-04] MEDS: NORMAL SALINE 1000 ML 1,000 ML IV PRN (05:01)
[2018-11-04 05:36] LABS: ABSOLUTE BASOPHILS # (AUTO) 0.2 10^3/uL (0.0-0.2); ABSOLUTE EOSINOPHILS # (AUTO) 0.5 10^3/uL (0.0-0.6); ABSOLUTE LYMPHOCYTES (AUTO) 3.7 10^3/uL (0.5-4.7); BASOPHILS % (AUTO) 1.2 % (0-2); EOSINOPHILS % (AUTO) 3.5 % (0-6); HEMATOCRIT 37.8 % (37.9-51.0); HEMOGLOBIN 12.6 g/dL (13.5-17.0); LYMPHOCYTES % (AUTO) 27.6 % (13-45); MEAN CORPUSCULAR HEMOGLOBIN 28.7 pg (27.0-33.4); MEAN CORPUSCULAR HGB CONC 33.3 g/dL (32.0-36.0); MEAN CORPUSCULAR VOLUME 86 fl (80-97); MONOCYTES % (AUTO) 7.7 % (3-13); PLATELET COUNT 276 10^3/uL (150-450); RED BLOOD COUNT 4.39 10^6/uL (4.35-5.55); RED CELL DISTRIBUTION WIDTH 13.2 % (11.5-14.0); TOTAL CELLS COUNTED % (AUTO) 100 %; WHITE BLOOD COUNT 13.2 10^3/uL (4.0-10.5)
--- NOTE | 2018-11-04 08:02 | PDOC PROGRESS REPORT ---
Subjective Progress Note for:: 11/04/18 Subjective:: Patient went for I/D of the right antecubital fossa abscess. No acute events in the last 24 hours. He is complaining of right hand was swollen. No erythema. No pain. Probably secondary to swelling around the right elbow. I advised him to elevate the arm for drainage. Patient's T-max is 98.3. Patient denies any complaints. His amphetamine levels in the urine came back very high but is saying friend gave him a 1 pill of Adderall because of the pain prior to come to the hospital. No acute events in the last 24 hours. Patient is afebrile. T-max is 98.3. Patient is comfortably in the bed and he said pain is much improved. Dr. Rowe is going to come and reevaluate the patient today. Patient was n.p.o. in the meantime. Reason For Visit: CELLULITIS Physical Exam Vital Signs: Temp Pulse Resp BP Pulse Ox 98.0 F 81 16 131/70 H 96 11/04/18 04:07 11/04/18 04:07 11/04/18 04:07 11/04/18 04:07 11/04/18 04:07 Intake & Output 11/03/18 11/04/18 11/05/18 06:59 06:59 06:59 Intake Total 2775 3933 Output Total 5 Balance 2770 3933 Weight 70 kg 77.1 kg General appearance: PRESENT: no acute distress Head exam: PRESENT: atraumatic Eye exam: PRESENT: PERRLA Mouth exam: PRESENT: moist Neck exam: ABSENT: carotid bruit, JVD, lymphadenopathy, thyromegaly Respiratory exam: PRESENT: clear to auscultation elvi. ABSENT: rales, rhonchi, wheezes Cardiovascular exam: PRESENT: RRR. ABSENT: diastolic murmur, rubs, systolic murmur GI/Abdominal exam: PRESENT: normal bowel sounds, soft. ABSENT: distended, guarding, mass, organolmegaly, rebound, tenderness Extremities exam: PRESENT: full ROM. ABSENT: calf tenderness, clubbing, pedal edema Neurological exam: PRESENT: alert, awake, oriented to person, oriented to place, oriented to time, oriented to situation, CN II-XII grossly intact. ABSENT: motor sensory deficit Psychiatric exam: PRESENT: appropriate affect, normal mood. ABSENT: homicidal ideation, suicidal ideation Results Laboratory Results: 11/04/18 05:19 11/03/18 05:27 11/04/18 11/04/18 05:19 05:19 WBC 13.2 H RBC 4.39 Hgb 12.6 L Hct 37.8 L MCV 86 MCH 28.7 MCHC 33.3 RDW 13.2 Plt Count 276 Seg Neutrophils % 60.0 Lymphocytes % 27.6 Monocytes % 7.7 Eosinophils % 3.5 Basophils % 1.2 Absolute Neutrophils 8.0 Absolute Lymphocytes 3.7 Absolute Monocytes 1.0 Absolute Eosinophils 0.5 Absolute Basophils 0.2 Magnesium 2.2 11/02/18 10:35 Creatine Kinase < 20 L Impressions: Upper Extremity CT 11/02/18 00:00 IMPRESSION: Cellulitis. Cannot exclude a small abscess in the proximal anterior aspect of the upper arm. Elbow X-Ray 11/02/18 10:20 IMPRESSION: No fracture or dislocation of the right elbow. No radiopaque foreign body identified. Diffuse soft tissue swelling about the elbow. Assessment & Plan - Diagnosis (1) Cellulitis of right elbow Is this a current diagnosis for this admission?: Yes Plan: 11/02/2018 plan is to put him in a medical floor. Started on IV Zosyn 3.37 g every 6 hours and vancomycin 1 g every 8 hours IV also he was started on Dilaudid 2 mg every 3 hours as needed for pain, Ativan 1 mg p.o. every 6 hours as needed for anxiety, placed on K pad. Urine drug screen was requested. Blood cultures were sent urine culture was sent. CT of the right hip upper extremity was requested. To rule out any fasciitis evidence of any compartmental syndrome. Consultation with the surgeon was requested as a stat request. Started on IV fluids. Lactic acid levels are pending. I am going to repeat the lactic acid again this afternoon. He is going to be admitted as inpatient. Pt Does not know when was last time he had a tetanus vaccine he got a vaccination here in the ER today. 11/03/2018-patient went to the OR because of the 3 cm abscess in the right antecubital fossa. Dr. Valero to the I/D. Appreciate his help. Patient is on Zosyn and vancomycin. The wound cultures of blood cultures are pending. Patient is afebrile. WBC is also coming down it is 16,300 today. Plan is to continue the present antibiotic therapy. 11/04/2018-patient has right upper extremity abscess status post incision and drainage Jae is going to reevaluate the patient today. T-max is 98.3. Patient's pain is less compared to yesterday. He is able to move the right elbow better today. Presently he is on Zosyn and vancomycin. Vanco trough level is 9.1. The cultures are pending. Plan is to continue the present management. (2) Smoker Is this a current diagnosis for this admission?: Yes Plan: 11/02/2018-patient is given the history of smoking for more than 20 years smokes half pack to 1 pack/day. Smoking counseling was provided for more than 20 minutes. Strongly advised to quit smoking. He is going to be placed on nicotine patch. 11/03/2018-patient is a chronic smoker with a history of smoking half pack to 1 pack/day for more than 20 years on nicotine patch daily. Smoking counseling was provided again for more than 10 minutes. 11/04/2018 patient has history of chronic smoking his smoking for the last 20 years. He is on nicotine patch. (3) Hypertension Is this a current diagnosis for this admission?: Yes Plan: 11/02/2018-patient is giving history of hypertension but is not on any home medications. Pressure today is 135/87. I am going to closely monitor his blood pressure. 11/03/2018 patient blood pressure today is 130/71. Stable. Plan is to check the daily blood pressure measurements. 11/04/2018-blood pressure today is 131/70 well controlled. Not on any antihypertensives. - Time Time Spent with patient: 15-24 minutes Smoking Cessation Education: over 10 minutes Medications reviewed and adjusted accordingly: Yes Anticipated discharge: Home
[2018-11-04] MEDS: FAMOTIDINE INJ/PF 20 MG/2 ML SDV IV SCH ×2 (10:12→21:55)
[2018-11-04] MEDS: ENOXAPARIN SODIUM INJ 40 MG/0.4 ML DISP.SYRIN SUBCUT SCH (10:13)
--- NOTE | 2018-11-04 10:35 | PDOC PROGRESS REPORT ---
Subjective Progress Note for:: 11/04/18 Reason For Visit: CELLULITIS Physical Exam Vital Signs: Temp Pulse Resp BP Pulse Ox 98.1 F 71 18 115/67 97 11/04/18 08:26 11/04/18 08:26 11/04/18 08:26 11/04/18 08:26 11/04/18 08:26 Intake & Output 11/03/18 11/04/18 11/05/18 06:59 06:59 06:59 Intake Total 2775 3933 Output Total 5 Balance 2770 3933 Weight 70 kg 77.1 kg Results Laboratory Results: 11/04/18 05:19 11/03/18 05:27 11/04/18 11/04/18 05:19 05:19 WBC 13.2 H RBC 4.39 Hgb 12.6 L Hct 37.8 L MCV 86 MCH 28.7 MCHC 33.3 RDW 13.2 Plt Count 276 Seg Neutrophils % 60.0 Lymphocytes % 27.6 Monocytes % 7.7 Eosinophils % 3.5 Basophils % 1.2 Absolute Neutrophils 8.0 Absolute Lymphocytes 3.7 Absolute Monocytes 1.0 Absolute Eosinophils 0.5 Absolute Basophils 0.2 Magnesium 2.2 11/02/18 10:35 Creatine Kinase < 20 L Impressions: Upper Extremity CT 11/02/18 00:00 IMPRESSION: Cellulitis. Cannot exclude a small abscess in the proximal anterior aspect of the upper arm. Elbow X-Ray 11/02/18 10:20 IMPRESSION: No fracture or dislocation of the right elbow. No radiopaque foreign body identified. Diffuse soft tissue swelling about the elbow. Assessment & Plan - Diagnosis (1) Abscess of right upper extremity Is this a current diagnosis for this admission?: Yes - Plan Summary Plan Summary: This is a 38-year-old male status post incision and drainage of a right upper extremity abscess. I have examined the wound today. It is much improved. The redness is lessening, the induration is lessening, and there is no purulent drainage. His leukocytosis is improving, and he is afebrile. I will continue dressing changes twice daily. Continue antibiotics. The patient is stable for discharge from a surgical standpoint.
[2018-11-04] MEDS: NICOTINE 21 MG/24 HR PATCH.TD24 TD PRN (15:48)
[2018-11-04] MEDS: ZOLPIDEM TARTRATE 5 MG TABLET PO SCH (21:59)
[2018-11-05] MEDS: HYDROMORPHONE HCL INJ/PF 2 MG/ML AMPULE IV PRN ×7 (00:37→22:14)
[2018-11-05] MEDS: PIPERACILLIN SODIUM/TAZOBACTAM 3.375 GM in NORMAL SALINE 100 ML IV SCH ×3 (05:12→17:56)
[2018-11-05] MEDS: NORMAL SALINE 1000 ML 1,000 ML IV PRN ×2 (05:13→17:57)
[2018-11-05 05:44] LABS: ABSOLUTE BASOPHILS # (AUTO) 0.2 10^3/uL (0.0-0.2); ABSOLUTE EOSINOPHILS # (AUTO) 0.5 10^3/uL (0.0-0.6); ABSOLUTE LYMPHOCYTES (AUTO) 4.5 10^3/uL (0.5-4.7); ABSOLUTE MONOCYTES (AUTO) 0.8 10^3/uL (0.1-1.4); ABSOLUTE NEUT (AUTO) 7.7 10^3/uL (1.7-8.2); BASOPHILS % (AUTO) 1.5 % (0-2); EOSINOPHILS % (AUTO) 3.3 % (0-6); HEMATOCRIT 36.5 % (37.9-51.0); HEMOGLOBIN 12.2 g/dL (13.5-17.0); LYMPHOCYTES % (AUTO) 33.2 % (13-45); MEAN CORPUSCULAR HEMOGLOBIN 28.8 pg (27.0-33.4); MEAN CORPUSCULAR HGB CONC 33.6 g/dL (32.0-36.0); MEAN CORPUSCULAR VOLUME 86 fl (80-97); MONOCYTES % (AUTO) 5.9 % (3-13); PLATELET COUNT 278 10^3/uL (150-450); RED BLOOD COUNT 4.24 10^6/uL (4.35-5.55); RED CELL DISTRIBUTION WIDTH 13.4 % (11.5-14.0); SEGMENTED NEUTROPHILS % (AUTO) 56.1 % (42-78); TOTAL CELLS COUNTED % (AUTO) 100 %; WHITE BLOOD COUNT 13.7 10^3/uL (4.0-10.5)
[2018-11-05] MEDS: VANCOMYCIN HCL 1,500 MG in DEXTROSE 5%-WATER 250 ML IV SCH ×3 (05:46→21:25)
[2018-11-05 06:40] LABS: VANCOMYCIN,TROUGH 18.1 ug/mL (5.0-20.0)
[2018-11-05] MEDS ORDERED: ONDANSETRON HCL INJ/PF 4 MG/2 ML SDV IV PRN (09:00)
[2018-11-05] MEDS: HYDROCODONE/ACETAMINOPHEN 10-325 MG TABLET PO PRN ×2 (10:13→17:23)
[2018-11-05] MEDS: FAMOTIDINE INJ/PF 20 MG/2 ML SDV IV SCH ×2 (10:14→21:24)
[2018-11-05] MEDS: ENOXAPARIN SODIUM INJ 40 MG/0.4 ML DISP.SYRIN SUBCUT SCH (10:14)
--- NOTE | 2018-11-05 10:21 | PDOC PROGRESS REPORT ---
Subjective Progress Note for:: 11/05/18 Subjective:: Patient went for I/D of the right antecubital fossa abscess. No acute events in the last 24 hours. He is complaining of right hand was swollen. No erythema. No pain. Probably secondary to swelling around the right elbow. I advised him to elevate the arm for drainage. Patient's T-max is 98.3. Patient denies any complaints. His amphetamine levels in the urine came back very high but is saying friend gave him a 1 pill of Adderall because of the pain prior to come to the hospital. No acute events in the last 24 hours. Patient is afebrile. T-max is 98.3. Patient is comfortably in the bed and he said pain is much improved. Dr. Rowe is going to come and reevaluate the patient today. Patient was n.p.o. in the meantime. 11/05/2018 no acute events in the last 24 hours. We will wound cultures came back positive for Klebsiella pneumonia and MRSA. Afebrile. Comfortable in the bed eating his breakfast denies any problems expressing his desire to go home today. Initially he was to sign AMA and later on changes mind decided to stay until tomorrow. Reason For Visit: CELLULITIS Physical Exam Vital Signs: Temp Pulse Resp BP Pulse Ox 97.9 F 72 16 126/85 H 99 11/05/18 08:18 11/05/18 08:18 11/05/18 08:18 11/05/18 08:18 11/05/18 08:18 Intake & Output 11/04/18 11/05/18 11/06/18 06:59 06:59 06:59 Intake Total 3933 3398 250 Balance 3933 3398 250 Weight 77.1 kg 77.5 kg General appearance: PRESENT: no acute distress Head exam: PRESENT: atraumatic Eye exam: PRESENT: PERRLA Mouth exam: PRESENT: moist, tongue midline Neck exam: ABSENT: carotid bruit, JVD, lymphadenopathy, thyromegaly Respiratory exam: PRESENT: clear to auscultation elvi. ABSENT: rales, rhonchi, w heezes GI/Abdominal exam: PRESENT: normal bowel sounds, soft. ABSENT: distended, guarding, mass, organolmegaly, rebound, tenderness Extremities exam: PRESENT: full ROM. ABSENT: calf tenderness, clubbing, pedal edema Neurological exam: PRESENT: alert, awake, oriented to person, oriented to place, oriented to time, oriented to situation, CN II-XII grossly intact. ABSENT: motor sensory deficit Psychiatric exam: PRESENT: appropriate affect, normal mood. ABSENT: homicidal ideation, suicidal ideation Results Laboratory Results: 11/05/18 05:03 11/03/18 05:27 11/05/18 11/05/18 05:03 05:30 WBC 13.7 H RBC 4.24 L Hgb 12.2 L Hct 36.5 L MCV 86 MCH 28.8 MCHC 33.6 RDW 13.4 Plt Count 278 Seg Neutrophils % 56.1 Lymphocytes % 33.2 Monocytes % 5.9 Eosinophils % 3.3 Basophils % 1.5 Absolute Neutrophils 7.7 Absolute Lymphocytes 4.5 Absolute Monocytes 0.8 Absolute Eosinophils 0.5 Absolute Basophils 0.2 Magnesium 2.2 11/02/18 16:35 Clean Catch Midstream Urine Culture - Final NO GROWTH 2 DAYS 11/02/18 10:35 Creatine Kinase < 20 L Impressions: Upper Extremity CT 11/02/18 00:00 IMPRESSION: Cellulitis. Cannot exclude a small abscess in the proximal anterior aspect of the upper arm. Elbow X-Ray 11/02/18 10:20 IMPRESSION: No fracture or dislocation of the right elbow. No radiopaque foreign body identified. Diffuse soft tissue swelling about the elbow. Assessment & Plan - Diagnosis (1) Cellulitis of right elbow Is this a current diagnosis for this admission?: Yes Plan: 11/02/2018 plan is to put him in a medical floor. Started on IV Zosyn 3.37 g every 6 hours and vancomycin 1 g every 8 hours IV also he was started on Dila udid 2 mg every 3 hours as needed for pain, Ativan 1 mg p.o. every 6 hours as needed for anxiety, placed on K pad. Urine drug screen was requested. Blood cultures were sent urine culture was sent. CT of the right hip upper extremity was requested. To rule out any fasciitis evidence of any compartmental syndrome. Consultation with the surgeon was requested as a stat request. Started on IV fluids. Lactic acid levels are pending. I am going to repeat the lactic acid again this afternoon. He is going to be admitted as inpatient. Pt Does not know when was last time he had a tetanus vaccine he got a vaccination here in the ER today. 11/03/2018-patient went to the OR because of the 3 cm abscess in the right antecubital fossa. Dr. Valero to the I/D. Appreciate his help. Patient is on Zosyn and vancomycin. The wound cultures of blood cultures are pending. Patient is afebrile. WBC is also coming down it is 16,300 today. Plan is to continue the present antibiotic therapy. 11/04/2018-patient has right upper extremity abscess status post incision and drainage Jae is going to reevaluate the patient today. T-max is 98.3. Patient's pain is less compared to yesterday. He is able to move the right elbow better today. Presently he is on Zosyn and vancomycin. Vanco trough level is 9.1. The cultures are pending. Plan is to continue the present management. 11/05/2018-patient was admitted with right arm cellulitis and abscess status post I/D done. Patient is presently on Zosyn and vancomycin. The wound cultures came back positive for MRSA and Klebsiella pneumonia and waiting for the sensitivity report. Patient agreed to stay another day for continuation of IV antibiotic therapy. (2) Smoker Is this a current diagnosis for this admission?: Yes (3) Hypertension Is this a current diagnosis for this admission?: Yes Plan: 11/02/2018-patient is giving history of hypertension but is not on any home medications. Pressure today is 135/87. I am going to closely monitor his blood pressure. 11/03/2018 patient blood pressure today is 130/71. Stable. Plan is to check the daily blood pressure measurements. 11/04/2018-blood pressure today is 131/70 well controlled. Not on any antihypertensives. 11/05/2018-blood pressure today is 126/85 well controlled. Patient is presently not on any antihypertensive medications. Low-salt diet was advised. - Time Time Spent with patient: 15-24 minutes Smoking Cessation Education: over 10 minutes Medications reviewed and adjusted accordingly: Yes Anticipated discharge: Home
[2018-11-05] MEDS: NICOTINE 21 MG/24 HR PATCH.TD24 TD PRN (17:24)
--- NOTE | 2018-11-05 20:19 | PDOC PROGRESS REPORT ---
Subjective Subjective:: States arm is tingling above the operative site, with more swelling and redness. Reason For Visit: CELLULITIS Physical Exam Vital Signs: Temp Pulse Resp BP Pulse Ox 98.2 F 58 L 14 120/68 97 11/05/18 15:54 11/05/18 15:54 11/05/18 15:54 11/05/18 15:54 11/05/18 15:54 Intake & Output 11/04/18 11/05/18 11/06/18 06:59 06:59 06:59 Intake Total 3933 3398 2573 Balance 3933 3398 2573 Weight 77.1 kg 77.5 kg General appearance: PRESENT: no acute distress Extremities exam: PRESENT: other - Dressing removed and packing removed; there is persisting thickened would not subcutaneous tissue laterally and proximally to the operative transverse incision. Also tenderness. Results Laboratory Results: 11/05/18 05:03 11/03/18 05:27 11/05/18 11/05/18 05:03 05:30 WBC 13.7 H RBC 4.24 L Hgb 12.2 L Hct 36.5 L MCV 86 MCH 28.8 MCHC 33.6 RDW 13.4 Plt Count 278 Seg Neutrophils % 56.1 Lymphocytes % 33.2 Monocytes % 5.9 Eosinophils % 3.3 Basophils % 1.5 Absolute Neutrophils 7.7 Absolute Lymphocytes 4.5 Absolute Monocytes 0.8 Absolute Eosinophils 0.5 Absolute Basophils 0.2 Magnesium 2.2 11/02/18 10:35 Creatine Kinase < 20 L Impressions: Upper Extremity CT 11/02/18 00:00 IMPRESSION: Cellulitis. Cannot exclude a small abscess in the proximal anterior aspect of the upper arm. Elbow X-Ray 11/02/18 10:20 IMPRESSION: No fracture or dislocation of the right elbow. No radiopaque foreign body identified. Diffuse soft tissue swelling about the elbow. Assessment & Plan - Diagnosis (1) Cellulitis of right elbow Is this a current diagnosis for this admission?: Yes Plan: Impression: Persisting infection right arm 3 days status post operative drainage, packing right antecubital fossa, growing MRSA and Klebsiella pneumonia with persisting leukocytosis Recommendations: 1. I expressed my concern to the patient that there is persisting infection that may require more aggressive debridement in the operating room tomorrow; 2. Therefore we will keep him n.p.o. after midnight, and reassess patient in the morning. He understands and agrees to proceed.
[2018-11-05] MEDS: ZOLPIDEM TARTRATE 5 MG TABLET PO SCH (21:24)
[2018-11-06] MEDS: PIPERACILLIN SODIUM/TAZOBACTAM 3.375 GM in NORMAL SALINE 100 ML IV SCH ×5 (00:35→23:08)
[2018-11-06] MEDS: HYDROMORPHONE HCL INJ/PF 2 MG/ML AMPULE IV PRN ×7 (01:05→23:07)
[2018-11-06 05:26] LABS: ABSOLUTE BASOPHILS # (AUTO) 0.1 10^3/uL (0.0-0.2); ABSOLUTE EOSINOPHILS # (AUTO) 0.4 10^3/uL (0.0-0.6); ABSOLUTE LYMPHOCYTES (AUTO) 3.9 10^3/uL (0.5-4.7); ABSOLUTE MONOCYTES (AUTO) 0.6 10^3/uL (0.1-1.4); ABSOLUTE NEUT (AUTO) 5.2 10^3/uL (1.7-8.2); BASOPHILS % (AUTO) 1.4 % (0-2); EOSINOPHILS % (AUTO) 4.1 % (0-6); HEMATOCRIT 37.9 % (37.9-51.0); HEMOGLOBIN 12.8 g/dL (13.5-17.0); MEAN CORPUSCULAR HEMOGLOBIN 29.1 pg (27.0-33.4); MEAN CORPUSCULAR HGB CONC 33.8 g/dL (32.0-36.0); MEAN CORPUSCULAR VOLUME 86 fl (80-97); MONOCYTES % (AUTO) 6.1 % (3-13); PLATELET COUNT 287 10^3/uL (150-450); RED BLOOD COUNT 4.39 10^6/uL (4.35-5.55); RED CELL DISTRIBUTION WIDTH 13.4 % (11.5-14.0); SEGMENTED NEUTROPHILS % (AUTO) 50.4 % (42-78); TOTAL CELLS COUNTED % (AUTO) 100 %; WHITE BLOOD COUNT 10.3 10^3/uL (4.0-10.5)
[2018-11-06 05:52] LABS: ALANINE AMINOTRANSFERASE 39 U/L (21-72); ALBUMIN 3.2 g/dL (3.5-5.0); ALKALINE PHOSPHATASE 51 U/L (38-126); ANION GAP 6 (5-19); ASPARTATE AMINO TRANSFERASE 21 U/L (17-59); BILIRUBIN,DIRECT 0.2 mg/dL (0.0-0.4); BILIRUBIN,TOTAL 0.2 mg/dL (0.2-1.3); BLOOD UREA NITROGEN 8 mg/dL (7-20); CALCIUM 8.8 mg/dL (8.4-10.2); CARBON DIOXIDE 28 mmol/L (22-30); CHLORIDE 107 mmol/L (98-107); GLUCOSE 93 mg/dL (75-110); POTASSIUM 4.5 mmol/L (3.6-5.0); TOTAL PROTEIN 5.9 g/dL (6.3-8.2)
[2018-11-06] MEDS: VANCOMYCIN HCL 1,500 MG in DEXTROSE 5%-WATER 250 ML IV SCH ×3 (05:52→21:26)
[2018-11-06] MEDS ORDERED: HYDROMORPHONE HCL INJ/PF 2 MG/ML AMPULE IV ONE (06:15)
[2018-11-06] MEDS: ENOXAPARIN SODIUM INJ 40 MG/0.4 ML DISP.SYRIN SUBCUT SCH (09:09)
[2018-11-06] MEDS: FAMOTIDINE INJ/PF 20 MG/2 ML SDV IV SCH ×2 (11:26→21:26)
[2018-11-06] MEDS: NORMAL SALINE 1000 ML 1,000 ML IV PRN ×2 (13:03→19:54)
[2018-11-06] MEDS: KETOROLAC TROMETHAMINE INJ/PF 30 MG/1 ML SDV IV PRN ×2 (13:18→21:25)
--- NOTE | 2018-11-06 14:13 | PDOC PROGRESS REPORT ---
Subjective Progress Note for:: 11/06/18 Subjective:: This is a 38 yr old male with a PMH of HTN and chronic smoking who initially presented with pain and swelling on the right arm (lateral antecubital area) after sustaining a wound from a gutter. He was admitted for right arm cellulitis. He underwent I&D by surgery on 11/03/18. Wound cultures came back positive for MRSA and Klebsiella. 11/06/18: Patient had recurrence of increasing redness on the area yesterday and was noted to have drainage from the debrided wound. No fever or chills. He is going for a repeat debdridement later today. Reason For Visit: CELLULITIS Physical Exam Vital Signs: Temp Pulse Resp BP Pulse Ox 98.1 F 72 14 123/63 99 11/06/18 12:10 11/06/18 12:10 11/06/18 12:10 11/06/18 12:10 11/06/18 12:10 Intake & Output 11/05/18 11/06/18 11/07/18 06:59 06:59 06:59 Intake Total 3398 3023 1350 Balance 3398 3023 1350 Weight 170 lb 13.732 oz 170 lb 3.15 oz General appearance: PRESENT: no acute distress, well-developed, well-nourished Head exam: PRESENT: atraumatic, normocephalic Eye exam: PRESENT: conjunctiva pink, EOMI, PERRLA. ABSENT: scleral icterus Ear exam: PRESENT: normal external ear exam Mouth exam: PRESENT: moist, tongue midline Neck exam: ABSENT: carotid bruit, JVD, lymphadenopathy, thyromegaly Respiratory exam: PRESENT: clear to auscultation elvi. ABSENT: rales, rhonchi, wheezes Cardiovascular exam: PRESENT: RRR. ABSENT: diastolic murmur, rubs, systolic murmur Pulses: PRESENT: normal dorsalis pedis pul GI/Abdominal exam: PRESENT: normal bowel sounds, soft. ABSENT: distended, guarding, mass, organolmegaly, rebound, tenderness Rectal exam: PRESENT: deferred Extremities exam: PRESENT: tenderness - note of debrided wound on the right lateral cubital area, note of erythema and mild surrounding induration Results Laboratory Results: 11/06/18 05:05 11/06/18 05:05 11/06/18 11/06/18 05:05 05:05 WBC 10.3 RBC 4.39 Hgb 12.8 L Hct 37.9 MCV 86 MCH 29.1 MCHC 33.8 RDW 13.4 Plt Count 287 Seg Neutrophils % 50.4 Lymphocytes % 38.0 Monocytes % 6.1 Eosinophils % 4.1 Basophils % 1.4 Absolute Neutrophils 5.2 Absolute Lymphocytes 3.9 Absolute Monocytes 0.6 Absolute Eosinophils 0.4 Absolute Basophils 0.1 Sodium 141.0 Potassium 4.5 Chloride 107 Carbon Dioxide 28 Anion Gap 6 BUN 8 Creatinine 0.80 Est GFR ( Amer) > 60 Est GFR (Non-Af Amer) > 60 Glucose 93 Calcium 8.8 Magnesium 2.2 Total Bilirubin 0.2 AST 21 ALT 39 Alkaline Phosphatase 51 Total Protein 5.9 L Albumin 3.2 L 11/02/18 10:35 Creatine Kinase < 20 L Impressions: Upper Extremity CT 11/02/18 00:00 IMPRESSION: Cellulitis. Cannot exclude a small abscess in the proximal anterior aspect of the upper arm. Elbow X-Ray 11/02/18 10:20 IMPRESSION: No fracture or dislocation of the right elbow. No radiopaque foreign body identified. Diffuse soft tissue swelling about the elbow. Assessment & Plan - Diagnosis (1) Abscess of right upper extremity Is this a current diagnosis for this admission?: Yes Plan: S/P incision & drainage on 11/03/18. Wound cultures came back positive for MRSA and Klebsiella. Continue vancomycin and Zosyn for now. Patient has increasing redness on the area and was noted to have drainage as well. He is going for a repeat debridement later today. - Time Time Spent with patient: 25-34 minutes
[2018-11-06] MEDS ORDERED: ONDANSETRON HCL INJ/PF 4 MG/2 ML SDV ONE (18:11)
[2018-11-06] MEDS ORDERED: MIDAZOLAM 2 MG/2 ML INJ ONE (18:11)
[2018-11-06] MEDS ORDERED: FENTANYL CITRATE INJ/PF 100 MCG/2 ML AMPUL ONE (18:11)
[2018-11-06] MEDS ORDERED: PROPOFOL INJ 200 MG/20 ML VIAL IV ONE (18:12)
[2018-11-06] MEDS ORDERED: HYDROMORPHONE HCL INJ/PF 2 MG/ML AMPULE ONE (18:12)
[2018-11-06] MEDS ORDERED: BUPIVACAINE HCL 0.5%-EPI 1:200000 INJ/PF 30 ML VIAL ONE (18:15)
[2018-11-06] MEDS ORDERED: MEPERIDINE HCL/PF INJ 25 MG/1 ML DISP.SYRIN IV PRN (18:17)
[2018-11-06] MEDS ORDERED: FENTANYL CITRATE INJ/PF 100 MCG/2 ML AMPUL IV PRN ×3 (18:17)
[2018-11-06] MEDS ORDERED: ONDANSETRON HCL INJ/PF 4 MG/2 ML SDV IV PRN (18:17)
[2018-11-06] MEDS ORDERED: DIPHENHYDRAMINE HCL 50 MG/ML VIAL IV PRN (18:17)
[2018-11-06] MEDS ORDERED: MORPHINE SULFATE 10 MG/ML INJ IV PRN (18:17)
[2018-11-06] MEDS ORDERED: PROMETHAZINE HCL INJ 25 MG/1 ML VIAL IV PRN ×2 (18:17)
[2018-11-06] MEDS ORDERED: OXYCODONE-ACETAMINOPHEN 5-325 MG TABLET PO PRN ×2 (18:17)
--- NOTE | 2018-11-06 18:58 | Operative Report ---
Operative Report DATE OF SURGERY: 11/02/18 PREOPERATIVE DIAGNOSIS: right arm abscess POSTOPERATIVE DIAGNOSIS: right arm abscess OPERATION: incision and drainage of right arm abscess SURGEON: CAIN BALLARD ANESTHESIA: GA ESTIMATED BLOOD LOSS: 5cc INTRAOPERATIVE FINDINGS: 20cc of pus sent for cult
--- NOTE | 2018-11-06 19:02 | Operative Report ---
Operative Report DATE OF SURGERY: 11/06/18 PREOPERATIVE DIAGNOSIS: right arm abscess POSTOPERATIVE DIAGNOSIS: right arm abscess OPERATION: incision and drainage of right arm abscess SURGEON: CAIN BALLARD ANESTHESIA: LMAC COMPLICATIONS: none ESTIMATED BLOOD LOSS: 5cc INTRAOPERATIVE FINDINGS: no evidence of deep compartment purulent fluid. small amt of sub cutaneous pus latera to initial incision PROCEDURE: incision and drainage of right arm abscess see dictaiton
[2018-11-06] MEDS ORDERED: DOCUSATE SODIUM 100 MG CAPSULE PO PRN (19:06)
[2018-11-06] MEDS: FENTANYL CITRATE INJ/PF 100 MCG/2 ML AMPUL ONE ×2 (19:08→19:10)
[2018-11-06] MEDS: NICOTINE 21 MG/24 HR PATCH.TD24 TD PRN (20:32)
--- NOTE | 2018-11-06 22:47 | OPERATIVE REPORT E ---
Operative Report NAME: MYLA PAGAN : 1980 AGE: 38Y DATE OF SURGERY: 11/06/2018 ROOM: 320 PREOPERATIVE DIAGNOSIS: RIGHT ARM ABSCESS. POSTOPERATIVE DIAGNOSIS: RIGHT ARM ABSCESS. OPERATIVE PROCEDURE: Incision and drainage and irrigation of right arm abscess. SURGEON: CAIN BALLARD M.D. INDICATIONS FOR PROCEDURE: This is a 38-year-old male who had a right antecubital fossa abscess drained approximately 3 days ago. The patient continues to have swelling in the right arm and, therefore, he is brought back to the operating room for this procedure. PROCEDURE IN DETAIL: The patient was brought to the operating room awake, alert, in stable condition. Placed on the operating room table in supine position and given general anesthesia. The right arm was prepped and draped in the usual sterile fashion. He had a previous 2 cm incision in the antecubital fossa and this was extended laterally about 4-5 inches and then cephalad along the biceps tendon proximally. The cephalic vein was then doubly ligated with 2-0 Vicryl and divided. The subcutaneous tissue was digitally examined and it appeared to be indurated and the small loculations were broken up with digital dissection. There was a small amount of pus that exuded from the lateral aspect of the wound, but there were no significant large pockets that could be identified. I dissected down to the biceps tendon and then deep to that into the deep compartment and there was no evidence of any loculated abscess. The wound was then copiously irrigated with normal saline, suctioned dry, and packed with Betadine soaked sponge which completed the procedure. Estimated blood loss approximately 15 mL. Sponge and needle counts were correct x2. The patient was awakened in the operating room, transferred to the recovery room in stable condition. No complications. DICTATING PHYSICIAN: CAIN BALLARD M.D. [id number] PHY#: [id number] ID: [id number] JOB#: [id number] ACCT: [id number] cc:CAIN BALLARD M.D. >
[2018-11-06] MEDS: IBUPROFEN 600 MG TABLET PO PRN (23:38)
[2018-11-07] MEDS: HYDROMORPHONE HCL INJ/PF 2 MG/ML AMPULE IV PRN ×3 (03:09→09:23)
[2018-11-07] MEDS: PIPERACILLIN SODIUM/TAZOBACTAM 3.375 GM in NORMAL SALINE 100 ML IV SCH ×2 (05:31→12:40)
[2018-11-07] MEDS: VANCOMYCIN HCL 1,500 MG in DEXTROSE 5%-WATER 250 ML IV SCH (05:33)
[2018-11-07] MEDS: NORMAL SALINE 1000 ML 1,000 ML IV PRN (08:38)
[2018-11-07] MEDS: IBUPROFEN 600 MG TABLET PO PRN (08:44)
[2018-11-07] MEDS: FAMOTIDINE INJ/PF 20 MG/2 ML SDV IV SCH (09:24)
[2018-11-07] MEDS: ENOXAPARIN SODIUM INJ 40 MG/0.4 ML DISP.SYRIN SUBCUT SCH (09:26)
--- NOTE | 2018-11-07 11:48 | PDOC PROGRESS REPORT ---
Subjective Progress Note for:: 11/07/18 Subjective:: no c/o, comfortable Reason For Visit: CELLULITIS Physical Exam Vital Signs: Temp Pulse Resp BP Pulse Ox 98.2 F 62 12 119/75 98 11/07/18 07:55 11/07/18 07:55 11/07/18 07:55 11/07/18 07:55 11/07/18 07:55 Intake & Output 11/06/18 11/07/18 11/08/18 06:59 06:59 06:59 Intake Total 3023 4014 1205 Output Total 510 Balance 3023 3504 1205 Weight 77.2 kg 75.7 kg General appearance: PRESENT: no acute distress Extremities exam: PRESENT: other - RUE= wound clean, granulating, no drainage, no odor, pink, minimal edema Results Laboratory Results: 11/06/18 05:05 11/06/18 05:05 11/02/18 10:35 Blood Blood Culture - Final NO GROWTH IN 5 DAYS 11/02/18 10:35 Creatine Kinase < 20 L Impressions: Upper Extremity CT 11/02/18 00:00 IMPRESSION: Cellulitis. Cannot exclude a small abscess in the proximal anterior aspect of the upper arm. Elbow X-Ray 11/02/18 10:20 IMPRESSION: No fracture or dislocation of the right elbow. No radiopaque foreign body identified. Diffuse soft tissue swelling about the elbow. Assessment & Plan - Diagnosis (1) Abscess of right upper extremity Is this a current diagnosis for this admission?: Yes - Plan Summary Plan Summary: A/ POD # 5 and POD#1 after RUE abscess I&D Wound pink, granulating, no drainage, or odor P/ Patient can be discharged to home today by General Surgery viewpoint BID dressing changes by patient with NS wet-to-dry technique, cover with dry 4x4, Kerlix roll, 6" August wrap can shower now, protect wound with towel no bath until wound completely closed oral antibiotics as per Hospitalist Follow up in Surgery clinic in 1 weeks with CHRISTIAN Ventura NO narcotics for pain, only Tylenol and Aleve prn Return to work in 3-4 weeks as patient can tolerate physical activities
[2018-11-07 12:27] VITALS: BP 128/73
[2018-11-07] MEDS: HYDROCODONE/ACETAMINOPHEN 10-325 MG TABLET PO PRN (12:33)
--- NOTE | 2018-11-07 16:44 | PDOC DISCHARGE SUMMARY ---
General - Admit/Disc Date/PCP Admission Date/Primary Care Provider: 11/02/18 12:41 Discharge Date: 11/07/18 - Discharge Diagnosis (1) Abscess of right upper extremity Is this a current diagnosis for this admission?: Yes - Additional Information Resuscitation Status: Full Code Discharge Diet: As Tolerated, Regular Discharge Activity: Activity As Tolerated, Balance Activity w/Rest Prescriptions: Ibuprofen [Ibu] 400 mg PO Q6HP PRN #20 tablet PRN Reason: Sulfamethoxazole/Trimethoprim [Bactrim Ds Tablet] 1 each PO BID 7 Days #14 tablet Home Medications: Ibuprofen [Ibu] 400 mg PO Q6HP PRN #20 tablet 11/07/18 Sulfamethoxazole/Trimethoprim [Bactrim Ds Tablet] 1 each PO BID 7 Days #14 tablet 11/07/18 History of Present Illness History of Present Illness: Admitting hospitalist's H&P: MYLA PAGAN is a 38 year old male with history of hypertension, chronic smoker came to the emergency room with complaints of swelling around the right elbow associated with severe pain and redness for the last 48 hours. 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 Denies any history of fevers denies any IV drug use. Denies any nausea or vomitings diarrhea. Pain scale according to him is intense 10 x 10. In the emergency room x-ray was done it shows diffuse soft tissue swelling around the right elbow medical consult was called for further management. Hospital Course Hospital Course: This is a 38 yr old male with a PMH of HTN and chronic smoking who initially presented with pain and swelling on the right arm (lateral antecubital area) after sustaining a wound from a gutter. He was admitted for right arm cellulitis. He underwent I&D by surgery on 11/03/18. He was started harpal vancomycin and Zosyn. Wound cultures came back positive for MRSA and Klebsiella Both were sensitive to Bactrim. Patient had recurrence of increasing redness on the area on 11/05/18 and was noted to have drainage from the debrided wound. He went for a repeat debdridement on 11/06/18. He continued to improve and the erythema and tenderness did improve on day of discharge. He was cleared for discharge by surgery. He was taught to do dressing changes at home by surgery and will ff-up with the wound clinic after a week. He will be discharged on Bactrim. Physical Exam Vital Signs: Temp Pulse Resp BP Pulse Ox 98.2 F 62 12 128/73 H 98 11/07/18 12:25 11/07/18 12:25 11/07/18 12:25 11/07/18 12:25 11/07/18 12:25 Intake & Output 11/06/18 11/07/18 11/08/18 06:59 06:59 06:59 Intake Total 3023 4014 1483 Output Total 510 Balance 3023 3504 1483 Weight 170 lb 3.15 oz 166 lb 14.239 oz General appearance: PRESENT: no acute distress, well-developed, well-nourished Head exam: PRESENT: atraumatic, normocephalic Eye exam: PRESENT: conjunctiva pink, EOMI, PERRLA. ABSENT: scleral icterus Ear exam: PRESENT: normal external ear exam Mouth exam: PRESENT: moist, tongue midline Neck exam: ABSENT: carotid bruit, JVD, lymphadenopathy, thyromegaly Respiratory exam: PRESENT: clear to auscultation elvi. ABSENT: rales, rhonchi, wheezes Cardiovascular exam: PRESENT: RRR. ABSENT: diastolic murmur, rubs, systolic murmur Pulses: PRESENT: normal dorsalis pedis pul GI/Abdominal exam: PRESENT: normal bowel sounds, soft. ABSENT: distended, gu arding, mass, organolmegaly, rebound, tenderness Rectal exam: PRESENT: deferred Musculoskeletal exam: PRESENT: other - note of debrided wound on the right lateral cubital area, erythema and induration have significantly improved Neurological exam: PRESENT: alert, awake, oriented to person, oriented to place, oriented to time, oriented to situation, CN II-XII grossly intact. ABSENT: motor sensory deficit Results Laboratory Results: 11/06/18 05:05 11/06/18 05:05 11/02/18 23:37 Arm - Right Side Abscess Gram Stain - Final 11/02/18 12:14 Blood Blood Culture - Final NO GROWTH IN 5 DAYS 11/02/18 10:35 Blood Blood Culture - Final NO GROWTH IN 5 DAYS 11/02/18 10:35 Creatine Kinase < 20 L Impressions: Upper Extremity CT 11/02/18 00:00 IMPRESSION: Cellulitis. Cannot exclude a small abscess in the proximal anterior aspect of the upper arm. Elbow X-Ray 11/02/18 10:20 IMPRESSION: No fracture or dislocation of the right elbow. No radiopaque f oreign body identified. Diffuse soft tissue swelling about the elbow. Qualifiers - * PATIENT BEING DISCHARGED WITH ANY OF THE FOLLOWING DIAGNOSIS: No
== END 2018-11-07 12:41 | disposition home or self-care (01) | DRG 581 ==
LOC: ER 09:15 → EH 12:41 → 3W 19:33
PROVIDERS: ADMIT Hospitalist; ATTEND Hospitalist
PROC: 3E0234Z Introduction of Serum, Toxoid and Vaccine into Muscle, Percutaneous Approach (ICD-10-PCS; 2018-11-02)
PROC: 0L9 Tendons, Drainage (ICD-10-PCS; principal; 2018-11-02 23:00)
PROC: 0L950ZZ Drainage of Right Lower Arm and Wrist Tendon, Open Approach (ICD-10-PCS; 2018-11-06)
DX: L02.413 Cutaneous abscess of right upper limb (principal); L03.113 Cellulitis of right upper limb; B96.1 Klebsiella pneumoniae [K. pneumoniae] as the cause of diseases classified elsewhere; B95.62 Methicillin resistant Staphylococcus aureus infection as the cause of diseases classified elsewhere; I10 Essential (primary) hypertension; F17.210 Nicotine dependence, cigarettes, uncomplicated; M19.90 Unspecified osteoarthritis, unspecified site; W45.8XXA Other foreign body or object entering through skin, initial encounter; W20.8XXA Other cause of strike by thrown, projected or falling object, initial encounter; Y93.H3 Activity, building and construction; Y92.61 Building [any] under construction as the place of occurrence of the external cause; Y99.0 Civilian activity done for income or pay; Z23 Encounter for immunization; Z79.899 Other long term (current) drug therapy; Z85.828 Personal history of other malignant neoplasm of skin; Z88.6 Allergy status to analgesic agent; Z82.61 Family history of arthritis; Z82.49 Family history of ischemic heart disease and other diseases of the circulatory system; Z83.6 Family history of other diseases of the respiratory system; Z82.3 Family history of stroke; Z80.9 Family history of malignant neoplasm, unspecified
CPT/HCPCS: 00400; 01710; 36415; 80048; 80053; 80202; 80307; 82550; 82962; 83605; 83735; 85025; 85652; 86140; 87040; 87070; 87075; 87077; 87086; 87186; 87205; 90471; 90715; 96365; 96375; 99285; A6266; J0330; J1170; J1650; J1885; J2250; J2405; J2543; J2704; J2765; J3010; J3370; J3490; J7030; J7060; S0028

== ENCOUNTER 2019-08-22 19:01 | Emergency (ER) | payer SELFPAY ==
--- NOTE | 2019-08-22 19:25 | ER Document Report ---
ED Medical Screen (RME) - General Chief Complaint: Abscess Stated Complaint: ABSCESS/LEFT ARMPIT Time Seen by Provider: 08/22/19 19:21 Mode of Arrival: Ambulatory Information source: Patient Notes: 39-year-old male presented to ED for a abscess to his left axilla x4 days. States he has a history of one abscess in the past he states he did have a history of MRSA. A history of skin cancer. Patient is alert oriented respirations regular and unlabored speaking in full sentences. I have greeted and performed a rapid initial assessment of this patient. A comprehensive ED assessment and evaluation of the patient, analysis of test results and completion of medical decision making process will be conducted by an additional ED providers. TRAVEL OUTSIDE OF THE [place] IN LAST 30 DAYS: No - Related Data Allergies/Adverse Reactions: tramadol Allergy (Verified 08/22/19 19:21) Past Medical History - Past Medical History Cardiac Medical History: Reports: Hx Hypertension Renal/ Medical History: Denies: Hx Peritoneal Dialysis Malignancy Medical History: Reports Hx Skin Cancer Musculoskeltal Medical History: Reports Hx Arthritis, Reports Hx Musculoskeletal Deformity - Degenerative disc disease, Reports Hx Musculoskeletal Trauma - AC separation Past Surgical History: Reports: Other - Removal of skin cancer - Immunizations Immunizations up to date: No Hx Diphtheria, Pertussis, Tetanus Vaccination: No
[2019-08-22] MEDS ORDERED: IBUPROFEN 800 MG TABLET PO ONE (19:26)
[2019-08-22] MEDS ORDERED: LIDOCAINE 4% TRANSPARENT DRESSING 5 GM KIT TP ONE (20:46)
[2019-08-22] MEDS ORDERED: LIDOCAINE 1% INJ-PF (10 MG/ML) 30 ML SDV INFIL ONE (20:47)
--- NOTE | 2019-08-22 20:57 | ER Document Report ---
ED General - General Chief Complaint: Abscess Stated Complaint: ABSCESS/LEFT ARMPIT Time Seen by Provider: 08/22/19 19:21 Mode of Arrival: Ambulatory TRAVEL OUTSIDE OF THE [place] IN LAST 30 DAYS: No - Related Data Allergies/Adverse Reactions: tramadol Allergy (Verified 08/22/19 19:21) Past Medical History - General Information source: Patient - Social History Smoking Status: Current Every Day Smoker Chew tobacco use (# tins/day): No Frequency of alcohol use: None Drug Abuse: None Family History: Arthritis, CAD, COPD, CVA, Hyperlipidemia, Malignancy. denies: Hypertension, Thyroid Disfunction Patient has suicidal ideation: No Patient has homicidal ideation: No - Past Medical History Cardiac Medical History: Reports: Hx Hypertension Renal/ Medical History: Denies: Hx Peritoneal Dialysis Malignancy Medical History: Reports Hx Skin Cancer Musculoskeletal Medical History: Reports Hx Arthritis, Reports Hx Musculoskeletal Deformity - Degenerative disc disease, Reports Hx Musculoskeletal Trauma - AC separation Past Surgical History: Reports: Other - Removal of skin cancer - Immunizations Immunizations up to date: No Hx Diphtheria, Pertussis, Tetanus Vaccination: No Physical Exam - Vital signs Vitals: Temp Pulse Resp BP Pulse Ox 98.1 F 82 18 141/82 H 100 08/22/19 19:22 08/22/19 19:22 08/22/19 19:22 08/22/19 19:22 08/22/19 19:22 Course - Vital Signs Vital signs: Temp Pulse Resp BP Pulse Ox 98.1 F 82 18 141/82 H 100 08/22/19 19:22 08/22/19 19:22 08/22/19 19:22 08/22/19 19:22 08/22/19 19:22
--- NOTE | 2019-08-22 21:55 | ER Document Report ---
HPI - HPI Time Seen by Provider: 08/22/19 19:21 Pain Level: 3 Notes: Otherwise healthy 39-year-old male with complaints of abscess to his left axillary area. Patient reports this is been there for approximately 4 days. Denies fevers, denies drainage from the area. Reports history of MRSA. - REPRODUCTIVE Reproductive: DENIES: : Past Medical History - General Information source: Patient - Social History Smoking Status: Current Every Day Smoker Chew tobacco use (# tins/day): No Frequency of alcohol use: None Drug Abuse: None Family History: Arthritis, CAD, COPD, CVA, Hyperlipidemia, Malignancy. denies: Hypertension, Thyroid Disfunction Patient has suicidal ideation: No Patient has homicidal ideation: No - Past Medical History Cardiac Medical History: Reports: Hx Hypertension Renal/ Medical History: Denies: Hx Peritoneal Dialysis Malignancy Medical History: Reports Hx Skin Cancer Musculoskeletal Medical History: Reports Hx Arthritis, Reports Hx Musculoskeletal Deformity - Degenerative disc disease, Reports Hx Musculoskeletal Trauma - AC separation Past Surgical History: Reports: Other - Removal of skin cancer - Immunizations Immunizations up to date: No Hx Diphtheria, Pertussis, Tetanus Vaccination: No Vertical Provider Document - CONSTITUTIONAL Notes: PHYSICAL EXAMINATION: GENERAL: Well-appearing, well-nourished and in no acute distress. HEAD: Atraumatic, normocephalic. EYES: Pupils equal round extraocular movements intact, conjunctiva are normal. ENT: Nares patent NECK: Normal range of motion LUNGS: No respiratory distress Musculoskeletal: Normal range of motion NEUROLOGICAL: Normal speech, normal gait. PSYCH: Normal mood, normal affect. SKIN: Medium area of induration, erythema and fluctuance noted to left axilla. - INFECTION CONTROL TRAVEL OUTSIDE OF THE [place] IN LAST 30 DAYS: No Course - Re-evaluation Re-evalutation: Abscess incised and drained, patient tolerated well. - Vital Signs Vital signs: Temp Pulse Resp BP Pulse Ox 98.1 F 82 18 141/82 H 100 08/22/19 19:22 08/22/19 19:22 08/22/19 19:22 08/22/19 19:22 08/22/19 19:22 Procedures - Incision and Drainage Left axilla Type: Simple Anesthetic type: 1% Lidocaine Blade size: 11 I&D procedure: Betadine prep applied Incision Method: Incision made by scalpel Discharge - Discharge Clinical Impression: Abscess Condition: Stable Disposition: HOME, SELF-CARE Additional Instructions: You were seen for an abscess that required drainage. Please clean this area with soap and water twice daily and apply a topical antibiotic. Dress the area after each cleaning. Please return if you develop fever, vomiting, the pain at the site worsens, you notice spreading redness from the area, or you have any other symptoms that are concerning to you. Prescriptions: Sulfamethoxazole/Trimethoprim [Bactrim Ds Tablet] 1 tab PO BID #14 tablet Forms: Return to Work
[2019-08-22 22:19] VITALS: BP 150/90
== END 2019-08-22 22:20 | disposition home or self-care (01) ==
LOC: ER 19:01
PROC: 0H9CXZZ Drainage of Left Upper Arm Skin, External Approach (ICD-10-PCS; principal; 2019-08-22)
DX: L02.412 Cutaneous abscess of left axilla (principal); Z86.14 Personal history of Methicillin resistant Staphylococcus aureus infection; I10 Essential (primary) hypertension; Z85.828 Personal history of other malignant neoplasm of skin
CPT/HCPCS: 99283; 10060; J3490 ×2

== ENCOUNTER 2020-03-03 18:54 | Emergency (ER) | payer SELFPAY ==
--- NOTE | 2020-03-03 19:11 | ER Document Report ---
ED Medical Screen (RME) - General Chief Complaint: Skin Problem Stated Complaint: BODY SORES Time Seen by Provider: 03/03/20 19:04 Mode of Arrival: Ambulatory Information source: Patient Notes: 39-year-old male with history of MRSA presents to the emergency department with infection to the right lower leg. Patient reports approximately 10 to 12 days ago he was exposed to poison latanya. Reports area became infected. Reports it is been weeping with pus. Right lower leg has 2 scabbed over wounds and is swollen with erythema. He denies fever vomiting diarrhea. Patient reports leg is extre génesis painful from the knee down. I have greeted and performed a rapid initial assessment of this patient. A comprehensive ED assessment and evaluation of the patient, analysis of test results and completion of the medical decision making process will be conducted by additional ED providers. TRAVEL OUTSIDE OF THE [place] IN LAST 30 DAYS: No - Related Data Allergies/Adverse Reactions: tramadol Allergy (Verified 08/22/19 19:21) Past Medical History - Social History Chew tobacco use (# tins/day): No Frequency of alcohol use: None Drug Abuse: None - Past Medical History Cardiac Medical History: Reports: Hx Hypertension Renal/ Medical History: Denies: Hx Peritoneal Dialysis Malignancy Medical History: Reports Hx Skin Cancer Musculoskeltal Medical History: Reports Hx Arthritis, Reports Hx Musculoskeletal Deformity - Degenerative disc disease, Reports Hx Musculoskeletal Trauma - AC separation Past Surgical History: Reports: Other - Removal of skin cancer - Immunizations Immunizations up to date: No Hx Diphtheria, Pertussis, Tetanus Vaccination: No Physical Exam - Vital signs Vitals: Temp Pulse Resp BP Pulse Ox 98.7 F 108 H 16 144/91 H 97 03/03/20 18:59 03/03/20 18:59 03/03/20 18:59 03/03/20 18:59 03/03/20 18:59 Course - Vital Signs Vital signs: Temp Pulse Resp BP Pulse Ox 98.7 F 108 H 16 144/91 H 97 03/03/20 19:04 03/03/20 18:59 03/03/20 18:59 03/03/20 18:59 03/03/20 18:59
[2020-03-03 19:29] LABS: HEMATOCRIT 43.7 % (37.9-51.0); HEMOGLOBIN 14.9 g/dL (13.5-17.0); MEAN CORPUSCULAR HEMOGLOBIN 29.2 pg (27.0-33.4); MEAN CORPUSCULAR HGB CONC 34.1 g/dL (32.0-36.0); MEAN CORPUSCULAR VOLUME 86 fl (80-97); PLATELET COUNT 346 10^3/uL (150-450); RED BLOOD COUNT 5.09 10^6/uL (4.35-5.55); RED CELL DISTRIBUTION WIDTH 13.6 % (11.5-14.0); WHITE BLOOD COUNT 15.8 10^3/uL (4.0-10.5)
[2020-03-03 19:52] LABS: ALBUMIN 4.2 g/dL (3.5-5.0); ALKALINE PHOSPHATASE 102 U/L (38-126); ANION GAP 7 (5-19); ASPARTATE AMINO TRANSFERASE 22 U/L (17-59); BILIRUBIN,TOTAL 0.3 mg/dL (0.2-1.3); BLOOD UREA NITROGEN 14 mg/dL (7-20); CALCIUM 9.9 mg/dL (8.4-10.2); CARBON DIOXIDE 32 mmol/L (22-30); CHLORIDE 97 mmol/L (98-107); GLUCOSE 104 mg/dL (75-110); POTASSIUM 4.8 mmol/L (3.6-5.0)
[2020-03-03 19:53] LABS: ABSOLUTE MONOCYTES # (MANUAL) 0.9 10^3/uL (0.1-1.4); BAND NEUTROPHILS % (MANUAL) 1 % (3-5); BASOPHILS % (MANUAL) 0 % (0-2); EOSINOPHILS % (MANUAL) 1 % (0-6); LYMPHOCYTES % (MANUAL) 22 % (13-45); MONOCYTES % (MANUAL) 6 % (3-13); MYELOCYTES % (MANUAL) 1 % (0); SEGMENTED NEUTROPHILS % (MAN) 63 % (42-78); TOTAL CELLS COUNTED 100
[2020-03-03 19:55] LABS: POIKILOCYTOSIS SLIGHT
[2020-03-03 19:56] LABS: METAMYELOCYTES % (MANUAL) 3 % (0-1); OVALOCYTES SLIGHT; PLATELET COMMENT ADEQUATE
--- NOTE | 2020-03-03 20:21 | RADIOLOGY REPORT (SQ) ---
EXAM DESCRIPTION: XR TIBIA FIBULA 2 VIEWS March 03, 2020 7:42 PM CLINICAL HISTORY: infection RLL, swelling pain COMPARISON: None FINDINGS: Two x-ray views of the right tibia-fibula were submitted. There is no acute fracture or dislocation. Bone mineralization is within normal limits. There is no radiopaque foreign body material. There is soft tissue swelling. IMPRESSION: No acute fracture or dislocation. Soft tissue swelling.
[2020-03-03] MEDS ORDERED: ONDANSETRON HCL INJ/PF 4 MG/2 ML SDV IV ONE (20:59)
[2020-03-03] MEDS ORDERED: KETOROLAC TROMETHAMINE INJ/PF 30 MG/1 ML SDV IV ONE (20:59)
[2020-03-03] MEDS ORDERED: VANCOMYCIN HCL INJ 1000 MG VIAL IV ONE (20:59)
--- NOTE | 2020-03-03 21:14 | ER Document Report ---
ED General - General Chief Complaint: Skin Problem Stated Complaint: BODY SORES Time Seen by Provider: 03/03/20 19:04 Mode of Arrival: Ambulatory TRAVEL OUTSIDE OF THE [place] IN LAST 30 DAYS: No - HPI Notes: Chief complaint: Skin infection HPI: 39-year-old male with past history of treatment for MRSA says he got into some poison latanya approximately 1 week ago and initially developed some weeping dermatitis around the right ankle area. This was very itchy and he scratched at it. It is subsequently scabbed over and become more inflamed. He is also developed some similar lesions around the nailbeds of multiple fingers. Mild nausea without vomiting. No fever or chills. Otherwise healthy taking no regular medications. - Related Data Allergies/Adverse Reactions: tramadol Allergy (Verified 08/22/19 19:21) Past Medical History - General Information source: Patient, [facility] Records - Social History Smoking Status: Current Every Day Smoker Chew tobacco use (# tins/day): No Frequency of alcohol use: None Drug Abuse: None Family History: Arthritis, CAD, COPD, CVA, Hyperlipidemia, Malignancy. denies: Hypertension, Thyroid Disfunction Patient has homicidal ideation: No - Past Medical History Cardiac Medical History: Reports: Hx Hypertension Renal/ Medical History: Denies: Hx Peritoneal Dialysis Malignancy Medical History: Reports Hx Skin Cancer Musculoskeletal Medical History: Reports Hx Arthritis, Reports Hx Musculoskeletal Deformity - Degenerative disc disease, Reports Hx Mu sculoskeletal Trauma - AC separation Past Surgical History: Reports: Other - Removal of skin cancer - Immunizations Immunizations up to date: No Hx Diphtheria, Pertussis, Tetanus Vaccination: No Review of Systems - Review of Systems Notes: Constitutional: Negative for fever. HENT: Negative for sore throat. Eyes: Negative for visual changes. Cardiovascular: Negative for chest pain. Respiratory: Negative for shortness of breath. Gastrointestinal: Negative for abdominal pain, vomiting or diarrhea. Genitourinary: Negative for dysuria. Musculoskeletal: Negative for back pain. Skin: As per HPI. Neurological: Negative for headaches, weakness or numbness. 10 point ROS negative except as marked above and in HPI. Physical Exam - Vital signs Vitals: Temp Pulse Resp BP Pulse Ox 98.7 F 108 H 16 144/91 H 97 03/03/20 18:59 03/03/20 18:59 03/03/20 18:59 03/03/20 18:59 03/03/20 18:59 - Notes Notes: GENERAL: Well-developed well-nourished appearing in no acute distress. SKIN: Good turgor no rashes. HEAD: Normocephalic atraumatic. EYES: PERRLA. EOMI. Conjunctivae and sclerae clear. EARS: CANALS AND TMS CLEAR. NOSE: CLEAR. MOUTH: Moist mucosa. Good dentition. No stridor or edema. No drooling. NECK: Supple. No masses or thyromegaly. No adenopathy. Carotids 2+ without bruits. No JVD. BACK: Symmetrical without tenderness. CHEST: Respirations unlabored. Breath sounds clear and symmetrical. HEART: Regular rhythm. No murmur gallop or rub. ABDOMEN: Soft nontender without masses, organomegaly or rebound. Bowel sounds normally active. No bruits. GENITALIA: Deferred. EXTREMITIES: Patient has 8.0 x 12.0 cm area of erythema/edema over the anterior surface of the lower leg on the right with some central excoriation and eschar formation consistent with dermatitis/cellulitis. No calf tenderness. Cap refill less than 1.5 seconds. Dorsalis pedis and posterior tibial pulses 3+ and symmetrical. Patient has some similar areas of crusting and slight redness at the base of multiple nails on both hands. NEUROLOGICAL: GCS 15. Alert and oriented x3. Normal gait. Fluent speech. Crucible Packer nial nerves II through XII intact. Sensorimotor and cerebellar normal. Normal tone. PSYCHIATRIC: Appropriate affect. Course - Re-evaluation Re-evalutation: 03/04/20 01:05 Patient has cellulitis and has received a dose of IV vancomycin here. We will send him out on and have him follow-up with primary care physician. - Vital Signs Vital signs: Temp Pulse Resp BP Pulse Ox 98.7 F 108 H 16 144/91 H 97 03/03/20 19:04 03/03/20 18:59 03/03/20 18:59 03/03/20 18:59 03/03/20 18:59 - Laboratory Result Diagrams: 03/03/20 19:13 03/03/20 19:13 Laboratory results interpreted by me: 03/03/20 03/03/20 19:13 19:13 WBC 15.8 H Band Neutrophils % 1 L Metamyelocytes % 3 H Myelocytes % 1 H Abs Neuts (Manual) 10.7 H Sodium 135.8 L Chloride 97 L Carbon Dioxide 32 H Discharge - Discharge Clinical Impression: Cellulitis lower extremity Cellulitis of upper extremity Qualifiers: Laterality: unspecified laterality Qualified Code(s): L03.119 - Cellulitis of unspecified part of limb Condition: Stable Disposition: HOME, SELF-CARE Additional Instructions: Cellulitis You have an infection of your skin and underlying soft tissues called cellulitis. This is due to bacteria, which can enter through any break in the skin, or even through an irritated hair follicle. Untreated, cellulitis will usually worsen. Antibiotics are required. Usually, warm packs or warm soaks, and elevation of the infected area are recommended. You should start getting better within 24 to 36 hours. Most infections respond quickly to the right medication. Follow-up care is important, however, to check for abscess (boil) formation, unsuspected foreign body, or resistant infection. If you develop fever, chills, or if the area of infection is becoming rapidly more swollen or painful, call the doctor at once. Take prescribed antibiotic. You may take ibuprofen and/or Tylenol along with this medication as needed for pain. Follow-up with primary care physician within the next 48 hours. Return here as needed for new or worsening symptoms: Pain that is worsening or unimproved Uncontrolled vomiting High fever or shaking chills Overall worsening Prescriptions: Sulfamethoxazole/Trimethoprim [Bactrim 400-80 mg Tablet] 2 each PO BID 10 Days #40 tablet
[2020-03-04 01:21] VITALS: BP 137/97
[2020-03-04 15:21] LABS: PATH REVIEW PATHOLOGIST REVIEWED
== END 2020-03-04 02:10 | disposition home or self-care (01) ==
LOC: ER 18:54
DX: L03.115 Cellulitis of right lower limb (principal); F17.200 Nicotine dependence, unspecified, uncomplicated; I10 Essential (primary) hypertension
CPT/HCPCS: 36415; 87040; 85025; 80053; 73590; J1885; J2405; J3370; 96374; 96375; 99283